=== PATIENT | male | born 1960 | race Caucasian/White ===

== ENCOUNTER 2021-01-19 20:22 | Emergency (ER) | payer SELFPAY ==
[~2021-01-19 20:22] MED LIST: FNT25TD TD; GABA600T2 PO; HYDR-2890 PO
[2021-01-19 20:59] LABS: CLARITY,URINE SL CLOUDY; COLOR,URINE ORANGE; GLUCOSE, URINE (UA) NEGATIVE (NEGATIVE); KETONES,URINE NEGATIVE (NEGATIVE); LEUKOCYTE ESTERASE ,URINE NEGATIVE (NEGATIVE); NITRITE,URINE NEGATIVE (NEGATIVE); PH,URINE 5.5 (5-9); PROTEIN,URINE 2+ (NEGATIVE)
[2021-01-19] MEDS ORDERED: NS IV 1000 ML 1,000 ML IV SCH ×2 (21:15→21:30)
[2021-01-19 21:16] LABS: BACTERIA,URINE LARGE /HPF; BILIRUBIN,URINE 1+ (NEGATIVE)
[2021-01-19 21:19] LABS: BASOPHILS % (AUTO) 0 % (0-10); EOSINOPHILS % (AUTO) 0 % (0-10); HEMATOCRIT 47 % (40-54); HEMOGLOBIN 16.6 g/dL (13.3-17.7); LYMPHOCYTES # (AUTO) 0.7 10^3/uL (1.0-4.0); LYMPHOCYTES % (AUTO) 5 % (12-44); MEAN CORPUSCULAR HEMOGLOBIN 32 pg (25-34); MEAN CORPUSCULAR HGB CONC 36 g/dL (32-36); MEAN CORPUSCULAR VOLUME 90 fL (80-99); MEAN PLATELET VOLUME 9.1 fL (9.0-12.2); MONOCYTES # (AUTO) 1.2 10^3/uL (0.0-1.0); MONOCYTES % (AUTO) 8 % (0-12); NEUTROPHILS # (AUTO) 11.8 10^3/uL (1.8-7.8); NEUTROPHILS % (AUTO) 86 % (42-75); PLATELET COUNT 214 10^3/uL (130-400); WHITE BLOOD COUNT 13.8 10^3/uL (4.3-11.0)
[2021-01-19 21:22] LABS: ALBUMIN 4.2 GM/DL (3.2-4.5); POTASSIUM 3.5 MMOL/L (3.6-5.0)
[2021-01-19 21:23] LABS: CALCIUM 9.7 MG/DL (8.5-10.1)
[2021-01-19 21:25] LABS: TOTAL PROTEIN 8.5 GM/DL (6.4-8.2)
[2021-01-19 21:26] LABS: BILIRUBIN,TOTAL 0.8 MG/DL (0.1-1.0)
[2021-01-19 21:28] LABS: CREATININE SERUM 1.36 MG/DL (0.60-1.30)
[2021-01-19] MEDS ORDERED: ONDANSETRON 4 MG/2 ML (SDV) Z0FRAN IVP ONE (21:30)
[2021-01-19] MEDS ORDERED: PANTOPRAZOLE 40 MG (PROTONIX) VIAL IV ONE (21:30)
[2021-01-19] MEDS ORDERED: KETOROLAC 30 MG/ML VIAL IVP ONE (21:30)
--- NOTE | 2021-01-19 21:35 | ED GI ---
General Chief Complaint: COVID19 Suspect/Confirmed Stated Complaint: DIARREAH, CHILLS Source of Information: Patient Exam Limitations: No Limitations History of Present Illness Date Seen by Provider: Jan 19, 2021 Time Seen by Provider: 20:53 Initial Comments Patient to the ER by EMS from his van by the [place]ora with chief complaint that he is been having diarrhea for going on 7 days now. He is not had any fevers or chills. Little bit of nausea but no vomiting. Seems to be all lower GI symptoms. Took some Pepto-Bismol today which did not help. He feels like he is getting dehydrated. He says he is routinely healthy and does not take any medicines. He does have a history of appendectomy and right inguinal hernia repair years and years ago. He says he has not used opiates related to neck surgery for many years. No sick contacts. No vaccination for Covid or influenza. He has not used Kaopectate or Imodium. He is having some modest amount of allover abdominal pain. Claims about 5-6 loose stools per day. No drinking from unsafe water sources. He says he buys bottled water. Prior to all this starting he says he cooked about a dozen eggs and over 3 or 4 days he continued to make egg salad and other meals out of these eggs but lacks refrigeration. Allergies and Home Medications Allergies Coded Allergies: No Known Drug Allergies (Unverified , 10/12/10) Patient Home Medication List Home Medication List Reviewed: Yes Fentanyl (Duragesic 25MCG Patch) 1 Ea Patch, 1 EACH TD Q72H, (Reported) Entered as Reported by: JOSH MURPHY on 10/12/10 1031 Gabapentin (Neurontin) 600 Mg Tablet, 1 EACH PO TID, (Reported) Entered as Reported by: JOSH MURPHY on 10/12/10 1031 Hydrocodone Bit/Acetaminophen (Hydrocodon-Acetaminophn 10-325) 1 Each Tablet, 1 EACH PO UD, (Reported) Entered as Reported by: JOSH MURPHY on 10/12/10 1031 Review of Systems Review of Systems Constitutional: No chills, No diaphoresis EENTM: No Blurred Vision, No Double Vision Respiratory: Denies Cough, Denies Shortness of Air Cardiovascular: Denies Chest Pain, Denies Lightheadedness Gastrointestinal: Abdominal Pain; Denies Constipated; Diarrhea, Nausea, Poor Fluid Intake; Denies Vomiting Genitourinary: Denies Burning, Denies Discharge Musculoskeletal: No back pain, No joint pain Skin: No pruritus, No rash Psychiatric/Neurological: Denies Headache, Denies Numbness Endocrine: Denies Flushing, Denies Increased Thrist Hematologic/Lymphatic: Denies Anemia, Denies Blood Clots All Other Systems Reviewed Negative Unless Noted: Yes Past Snrtcmn-Nyrbpx-Hmmuyz Hx Patient Social History Tobacco Use?: No Use of E-Cig and/or Vaping dev: No Substance use?: No Physical Exam Vital Signs Vital Signs - First Documented 01/19/21 20:53 Temp 36.9 Pulse 94 Resp 20 B/P (MAP) 130/92 (105) Pulse Ox 96 O2 Delivery Room Air Capillary Refill : Height/Weight/BMI Height: '" Weight: lbs. oz. kg; BMI Method: General Appearance: WD/WN, mild distress HEENT: PERRL/EOMI; No pharynx normal (Dry oral mucosa with very few teeth left) Neck: full range of motion, supple, normal inspection Respiratory: lungs clear, normal breath sounds, no respiratory distress, no accessory muscle use Cardiovascular: normal peripheral pulses, regular rate, rhythm, no edema Peripheral Pulses: 2+ Radial Pulses (R), 2+ Radial Pulses (L) Gastrointestinal: non tender, soft, other (Hyperactive bowel sounds) Extremities: normal inspection, normal capillary refill Neurologic/Psychiatric: alert, normal mood/affect, oriented x 3 Progress/Results/Core Measures Results/Orders Lab Results Laboratory Tests Test 01/19/21 20:55 01/19/21 20:57 01/19/21 21:07 Range/Units Urine Color ORANGE Urine Clarity SL CLOUDY Urine pH 5.5 5-9 Urine Specific [place] >=1.030 1.016-1.022 Urine Protein 2+ H NEGATIVE Urine Glucose (UA) NEGATIVE NEGATIVE Urine Ketones NEGATIVE NEGATIVE Urine Nitrite NEGATIVE NEGATIVE Urine Bilirubin 1+ H NEGATIVE Urine Urobilinogen 0.2 < = 1.0 MG/DL Urine Leukocyte Esterase NEGATIVE NEGATIVE Urine RBC (Auto) TRACE-I H NEGATIVE Urine RBC NONE /HPF Urine WBC 2-5 /HPF Urine Squamous Epithelial Cells NONE /HPF Urine Crystals NONE /LPF Urine Bacteria LARGE H /HPF Urine Casts PRESENT /LPF Urine Hyaline Casts 2-5 H /LPF Urine Granular Casts 10-25 H /LPF Urine Mucus MODERATE H /LPF Urine Culture Indicated YES Influenza Type A (RT-PCR) Not Detected Not Detecte Influenza Type B (RT-PCR) Not Detected Not Detecte SARS-CoV-2 RNA (RT-PCR) Not Detected Not Detecte White Blood Count 13.8 H 4.3-11.0 10^3/uL Red Blood Count 5.22 4.30-5.52 10^6/uL Hemoglobin 16.6 13.3-17.7 g/dL Hematocrit 47 40-54 % Mean Corpuscular Volume 90 80-99 fL Mean Corpuscular Hemoglobin 32 25-34 pg Mean Corpuscular Hemoglobin Concent 36 32-36 g/dL Red Cell Distribution Width 12.4 10.0-14.5 % Platelet Count 214 130-400 10^3/uL Mean Platelet Volume 9.1 9.0-12.2 fL Immature Granulocyte % (Auto) 1 % Neutrophils (%) (Auto) 86 H 42-75 % Lymphocytes (%) (Auto) 5 L 12-44 % Monocytes (%) (Auto) 8 0-12 % Eosinophils (%) (Auto) 0 0-10 % Basophils (%) (Auto) 0 0-10 % Neutrophils # (Auto) 11.8 H 1.8-7.8 10^3/uL Lymphocytes # (Auto) 0.7 L 1.0-4.0 10^3/uL Monocytes # (Auto) 1.2 H 0.0-1.0 10^3/uL Eosinophils # (Auto) 0.0 0.0-0.3 10^3/uL Basophils # (Auto) 0.0 0.0-0.1 10^3/uL Immature Granulocyte # (Auto) 0.1 0.0-0.1 10^3/uL Neutrophils % (Manual) 78 % Lymphocytes % (Manual) 5 % Monocytes % (Manual) 9 % Band Neutrophils 8 % Blood Morphology Comment NORMAL Sodium Level 136 135-145 MMOL/L Potassium Level 3.5 L 3.6-5.0 MMOL/L Chloride Level 102 98-107 MMOL/L Carbon Dioxide Level 19 L 21-32 MMOL/L Anion Gap 15 H 5-14 MMOL/L Blood Urea Nitrogen 22 H 7-18 MG/DL Creatinine 1.36 H 0.60-1.30 MG/DL Estimat Glomerular Filtration Rate 54 BUN/Creatinine Ratio 16 Glucose Level 160 H 70-105 MG/DL Calcium Level 9.7 8.5-10.1 MG/DL Corrected Calcium 9.5 8.5-10.1 MG/DL Total Bilirubin 0.8 0.1-1.0 MG/DL Aspartate Amino Transf (AST/SGOT) 17 5-34 U/L Alanine Aminotransferase (ALT/SGPT) 16 0-55 U/L Alkaline Phosphatase 53 40-136 U/L C-Reactive Protein High Sensitivity 21.02 H 0.00-0.50 MG/DL Total Protein 8.5 H 6.4-8.2 GM/DL Albumin 4.2 3.2-4.5 GM/DL My Orders Orders - SYED KAUR 19 Inhouse Test (01/19/21 20:53) Influenza A And B By Pcr (01/19/21 20:53) Ua Culture If Indicated (01/19/21 20:53) Cbc With Automated Diff (01/19/21 21:07) Comprehensive Metabolic Panel (01/19/21 21:07) Ed Iv/Invasive Line Start (01/19/21 21:07) Ns Iv 1000 Ml (Sodium Chloride 0.9%) (01/19/21 21:15) Hs C Reactive Protein (01/19/21 21:07) Urine Culture (01/19/21 20:55) Manual Differential (01/19/21 21:07) Ketorolac Injection (Toradol Injection) (01/19/21 21:30) Pantoprazole Injection (Protonix Injecti (01/19/21 21:30) Ondansetron Injection (Zofran Injectio (01/19/21 21:30) Ed Iv/Invasive Line Start (01/19/21 21:29) Ns Iv 1000 Ml (Sodium Chloride 0.9%) (01/19/21 21:30) Stool Culture (01/19/21 21:29) Fecal Wbc (01/19/21 21:29) Loperamide Tablet (Imodium Tablet) (01/19/21 22:00) Medications Given in ED Current Medications Medications Dose Ordered Sig/Sheri Route Start Time Stop Time Status Last Admin Dose Admin Ketorolac Tromethamine 30 mg ONCE ONCE IVP 01/19/21 21:30 01/19/21 21:31 DC 11/26/21 21:40 30 MG Loperamide HCl 4 mg ONCE ONCE PO 01/19/21 22:00 01/19/21 22:01 DC 01/19/21 22:03 4 MG Ondansetron HCl 8 mg ONCE ONCE IVP 01/19/21 21:30 01/19/21 21:31 DC 01/19/21 21:40 8 MG Pantoprazole 40 mg ONCE ONCE IV 01/19/21 21:30 01/19/21 21:31 DC 01/19/21 21:40 40 MG Vital Signs/I&O 01/19/21 20:53 Temp 36.9 Pulse 94 Resp 20 B/P (MAP) 130/92 (105) Pulse Ox 96 O2 Delivery Room Air Progress Progress Note #1: Time: 21:34 Progress Note Foodborne toxin versus viral gastroenteritis versus less likely bacterial. He does not have any fever or bloody stools. We will get a stool sample and send it for culture. 2 L of fluid would be about 30 mils per kilogram. Other than heart rate of 90 he has aseptic vital signs. Tickly he barely meets sepsis criteria however we will not be giving him antibiotics as this is often contraindicated in nonbloody diarrhea. We will reexamine him after our interventions and some Imodium. Progress Note #2: Time: 23:24 Progress Note After 2 L of fluids, Toradol. The patient is tolerating oral fluids. His mouth is moist. He states he feels a little better. Stool culture sent down to the lab. Talked about an observation stay versus going home and the patient says he is okay with going home. We will provide him with a bottle of Gatorade and take-home pack of Zofran and a prescription sent to the pharmacy. Instructions to get Imodium. He is okay with this plan. Return precautions were discussed. Departure Impression Primary Impression: Gastroenteritis/colitis, infectious Disposition: 01 HOME, SELF-CARE Condition: Stable Departure-Patient Inst. Decision time for Depature: 23:26 Referrals: [facility] (PCP/Family) Primary Care Physician Patient Instructions: Diarrhea and Travelers' Diarrhea, Adult (DC) Add. Discharge Instructions: Drink plenty of fluids. Sports drinks are encouraged. Zofran 1 tablet every 6 hours under the tongue as necessary for nausea or vom iting. 2 tablets of Imodium followed by 1 tablet every 4 hours afterwards that she still have loose, watery diarrhea. Stick to a bland, high-fiber diet such as bananas, rice, applesauce and toast. Return to the ER for worsening symptoms. All discharge instructions reviewed with patient and/or family. Voiced understanding. Scripts Ondansetron (Ondansetron Odt) 4 Mg Tab.rapdis 4 MG PO Q6H PRN for NAUSEA/VOMITING, #10 TAB 0 Refills Prov: SYED KAUR 01/19/21 SYED KAUR Jan 19, 2021 21:35
[2021-01-19 21:42] LABS: BAND NEUTROPHILS 8 %; LYMPHOCYTES % (MANUAL) 5 %; MONOCYTES % (MANUAL) 9 %; NEUTROPHILS % (MANUAL) 78 %
[2021-01-19 21:43] LABS: RBC MORPH NORMAL
[2021-01-19] MEDS ORDERED: LOPERAMIDE 2 MG (IMODIUM) TABLET PO ONE (22:00)
[2021-01-19] MEDS ORDERED: RX-ONDANSETRON 4 MG ODT (ZOFRAN) PPK #4 PO STA (23:25)
[2021-01-19] MEDS ORDERED: ONDA4TAB11 PO (23:27)
[2021-01-19 23:33] VITALS: BP 111/64
== END 2021-01-19 23:42 | disposition home or self-care (01) ==
LOC: EDUNIT# 20:22 → ER 20:24
DX: K52.9 Noninfective gastroenteritis and colitis, unspecified (principal); Z20.822 Contact with and (suspected) exposure to COVID-19
CPT/HCPCS: 36415; 80053; 81000; 85007; 85027; 86141; 87015; 87045; 87046; 87088; 87636; 87899; 89055

== ENCOUNTER 2021-01-23 09:33 | Inpatient (IN) | payer SELFPAY ==
[2021-01-23] VITALS (21 sets, daily range): BP systolic 96–137; BP diastolic 58–91
[~2021-01-23] VITALS: Ht 170.1 cm; Wt 75.9 kg
[~2021-01-23 09:33] MED LIST changes: +ONDA4TAB11 PO
--- NOTE | 2021-01-23 10:09 | ED Abdominal Pain ---
General Chief Complaint: Abdominal/GI Problems Stated Complaint: DIARRHEA Nursing Triage Note: severe abdominal pain and diarrhea started last night. has been having problems for over a week. Source of Information: Patient Exam Limitations: No Limitations History of Present Illness Date Seen by Provider: Jan 23, 2021 Time Seen by Provider: 09:55 Initial Comments Patient is a 60-year-old male who presents to the emergency department today with a chief complaint of severe abdominal pain and diarrhea. Patient states that he has had abdominal pain and diarrhea for about 10 days. Patient states that initially he thought he had eaten some bad food or bad eggs. He did come to the emergency department last Friday, had labs performed, stool studies done. He states he is taken a box of Imodium, 12 tablets since his visit on Friday. He states yesterday in the morning the diarrhea seemed to be controlled however at about 2:30 in the morning last night he states that he had sudden worsening of the abdominal pain and a return of the diarrhea. He states since that time he has had 5 or 6 watery stools. He states he has noticed a little bit of blood in the stool but thinks that potentially it is from wiping so much. He states he has had decreased amounts of urination and his urine is very dark. He denies fevers or chills. No real nausea or vomiting. He states he has been trying to drink Powerade, water, Gatorade but it makes him have diarrhea. He has had previous appendectomy and hernia repair years ago. Stool cultures are reviewed and were negative for bacterial etiology. He was not tested for C. difficile. Urine culture was done it was normal. No recent antibiotic usage. All other review of systems reviewed and negative except as stated. Timing/Duration: 1 Week Severity/Quality: Severe, Cramping, Sharp, Throbbing Location: Generalized Abdomen Radiation: No Radiation Activities at Onset: None Associated Symptoms: Shortness of Air (due to pain), Weakness Allergies and Home Medications Allergies Coded Allergies: No Known Drug Allergies (Unverified , 10/12/10) Patient Home Medication List Home Medication List Reviewed: Yes Fentanyl (Duragesic 25MCG Patch) 1 Ea Patch, 1 EACH TD Q72H, (Reported) Entered as Reported by: JOSH MURPHY on 10/12/10 1031 Gabapentin (Neurontin) 600 Mg Tablet, 1 EACH PO TID, (Reported) Entered as Reported by: JOSH MURPHY on 10/12/10 1031 Hydrocodone Bit/Acetaminophen (Hydrocodon-Acetaminophn 10-325) 1 Each Tablet, 1 EACH PO UD, (Reported) Entered as Reported by: JOSH MURPHY on 10/12/10 1031 Ondansetron (Ondansetron Odt) 4 Mg Tab.rapdis, 4 MG PO Q6H PRN for NAUSEA/VOMITING Prescribed by: SYED KAUR on 01/19/21 4758 Review of Systems Review of Systems Constitutional: see HPI EENTM: No Symptoms Reported Respiratory: Shortness of Air Cardiovascular: No Symptoms Reported Gastrointestinal: Abdomen Distended, Abdominal Pain, Blood Streaked Stools, Diarrhea Genitourinary: Other (Decreased amounts of urination and dark urine) Musculoskeletal: no symptoms reported Skin: no symptoms reported Psychiatric/Neurological: Anxiety All Other Systems Reviewed Negative Unless Noted: Yes Past Lpfgcbl-Mokrfc-Btyhjr Hx Patient Social History Tobacco Use?: No Use of E-Cig and/or Vaping dev: No Substance type: Marijuana Alcohol Use?: Yes Alcohol Frequency: Once in a while Pt feels they are or have been: No Immunizations Up To Date Influenza Vaccine Up-to-Date: No; Not Current First/Initial COVID19 Vaccinat: declined Physical Exam Vital Signs Vital Signs - First Documented 01/23/21 09:40 Temp 36.5 Pulse 87 Resp 20 B/P (MAP) 137/83 (101) Pulse Ox 98 Capillary Refill : Less Than 3 Seconds Height/Weight/BMI Height: '" Weight: lbs. oz. kg; 25.00 BMI Method: General Appearance: WD/WN, moderate distress HEENT: PERRL/EOMI Respiratory: lungs clear, normal breath sounds, no respiratory distress, no accessory muscle use Cardiovascular: regular rate, rhythm Gastrointestinal: soft, abnormal bowel sounds, distended, guarding, tenderness (Diffuse abdominal tenderness, distention noted. The abdomen is not tense. Hypoactive bowel sounds) Extremities: normal range of motion, normal inspection Neurologic/Psychiatric: alert, normal mood/affect, oriented x 3 Skin: normal color, warm/dry Progress/Results/Core Measures Results/Orders Lab Results Laboratory Tests Test 01/23/21 09:45 01/23/21 10:36 Range/Units White Blood Count 15.3 H 4.3-11.0 10^3/uL Red Blood Count 4.88 4.30-5.52 10^6/uL Hemoglobin 15.2 13.3-17.7 g/dL Hematocrit 43 40-54 % Mean Corpuscular Volume 88 80-99 fL Mean Corpuscular Hemoglobin 31 25-34 pg Mean Corpuscular Hemoglobin Concent 36 32-36 g/dL Red Cell Distribution Width 12.5 10.0-14.5 % Platelet Count 262 130-400 10^3/uL Mean Platelet Volume 9.5 9.0-12.2 fL Immature Granulocyte % (Auto) 1 % Neutrophils (%) (Auto) 88 H 42-75 % Lymphocytes (%) (Auto) 5 L 12-44 % Monocytes (%) (Auto) 6 0-12 % Eosinophils (%) (Auto) 0 0-10 % Basophils (%) (Auto) 0 0-10 % Neutrophils # (Auto) 13.5 H 1.8-7.8 10^3/uL Lymphocytes # (Auto) 0.7 L 1.0-4.0 10^3/uL Monocytes # (Auto) 0.9 0.0-1.0 10^3/uL Eosinophils # (Auto) 0.0 0.0-0.3 10^3/uL Basophils # (Auto) 0.0 0.0-0.1 10^3/uL Immature Granulocyte # (Auto) 0.1 0.0-0.1 10^3/uL Sodium Level 134 L 135-145 MMOL/L Potassium Level 4.4 3.6-5.0 MMOL/L Chloride Level 98 98-107 MMOL/L Carbon Dioxide Level 24 21-32 MMOL/L Anion Gap 12 5-14 MMOL/L Blood Urea Nitrogen 15 7-18 MG/DL Creatinine 0.96 0.60-1.30 MG/DL Estimat Glomerular Filtration Rate 80 BUN/Creatinine Ratio 16 Glucose Level 110 H 70-105 MG/DL Calcium Level 9.2 8.5-10.1 MG/DL Corrected Calcium 9.5 8.5-10.1 MG/DL Total Bilirubin 0.9 0.1-1.0 MG/DL Aspartate Amino Transf (AST/SGOT) 23 5-34 U/L Alanine Aminotransferase (ALT/SGPT) 24 0-55 U/L Alkaline Phosphatase 49 40-136 U/L Total Protein 7.5 6.4-8.2 GM/DL Albumin 3.6 3.2-4.5 GM/DL Lipase 16 8-78 U/L Urine Color YELLOW Urine Clarity CLEAR Urine pH 6.0 5-9 Urine Specific [place] 1.020 1.016-1.022 Urine Protein 1+ H NEGATIVE Urine Glucose (UA) NEGATIVE NEGATIVE Urine Ketones 3+ H NEGATIVE Urine Nitrite NEGATIVE NEGATIVE Urine Bilirubin NEGATIVE NEGATIVE Urine Urobilinogen 4.0 < = 1.0 MG/DL Urine Leukocyte Esterase TRACE H NEGATIVE Urine RBC (Auto) NEGATIVE NEGATIVE Urine RBC RARE /HPF Urine WBC 0-2 /HPF Urine Crystals PRESENT H /LPF Urine Amorphous Sediment FEW [place] URATES H /LPF Urine Bacteria NEGATIVE /HPF Urine Casts NONE /LPF Urine Mucus NEGATIVE /LPF Urine Culture Indicated NO Micro Results Microbiology 01/23/21 C. difficile GDH Antigen & Toxins - Final, Complete My Orders Orders - MONE MITCHELL MD Ed Iv/Invasive Line Start (01/23/21 10:03) Cbc With Automated Diff (01/23/21 10:03) Comprehensive Metabolic Panel (01/23/21 10:03) Lipase (01/23/21 10:03) Ua Culture If Indicated (01/23/21 10:03) Ct Abdomen/Pelvis Wo (01/23/21 10:03) Ns Iv 1000 Ml (Sodium Chloride 0.9%) (01/23/21 10:15) Fentanyl Inj (Sublimaze Injection) (01/23/21 10:15) C Difficile Ag + Toxin A/B. (01/23/21 10:03) Isolation Central Supply Req (01/23/21 10:03) Morphine Injection (Morphine Injection (01/23/21 11:21) Ns Iv 1000 Ml (Sodium Chloride 0.9%) (01/23/21 11:30) Ciprofloxacin Iv 400mg/200ml (Cipro Iv S (01/23/21 11:30) Metronidazole 500mg/100ml Ivpb (Flagyl 5 (01/23/21 11:30) Nothing By Mouth (01/23/21 Lunch) Medications Given in ED Current Medications Medications Dose Ordered Sig/Sheri Route Start Time Stop Time Status Last Admin Dose Admin Fentanyl Citrate 50 mcg ONCE ONCE IVP 01/23/21 10:15 11/30/21 10:16 DC 01/23/21 10:14 50 MCG Vital Signs/I&O 01/23/21 09:40 Temp 36.5 Pulse 87 Resp 20 B/P (MAP) 137/83 (101) Pulse Ox 98 Blood Pressure Mean: 101 Progress Progress Note : Time: 11:08 Progress Note NOtified by radiology the patient's CT shows what looks like a contained perforation low in the pelvis, read to follow [address] Moreno, surgery on-call. Recommends n.p.o. status, fluids, Cipro and Flagyl. More pain medications have been given to the patient. I have discussed all of the findings with him. He is agreeable with admission. All questions are sought and answered. Departure Communication (Admissions) Time/Spoke to Admitting Phy: 11:[address] Moreno; reviewing CT with me; Impression Primary Impression: C. difficile colitis Additional Impression: Bowel perforation Disposition: ADMITTED INPATIENT Condition: Stable Admissions Decision to Admit Reason: Admit from ER (General) Decision to Admit/Date: Jan 23, 2021 Time/Decision to Admit Time: 11:30 Departure-Patient Inst. Referrals: [facility] (PCP/Family) Primary Care Physician MONE MITCHELL MD Jan 23, 2021 10:09
[2021-01-23 10:12] LABS: BASOPHILS % (AUTO) 0 % (0-10); EOSINOPHILS % (AUTO) 0 % (0-10); HEMATOCRIT 43 % (40-54); HEMOGLOBIN 15.2 g/dL (13.3-17.7); LYMPHOCYTES # (AUTO) 0.7 10^3/uL (1.0-4.0); LYMPHOCYTES % (AUTO) 5 % (12-44); MEAN CORPUSCULAR HEMOGLOBIN 31 pg (25-34); MEAN CORPUSCULAR HGB CONC 36 g/dL (32-36); MEAN CORPUSCULAR VOLUME 88 fL (80-99); MEAN PLATELET VOLUME 9.5 fL (9.0-12.2); MONOCYTES # (AUTO) 0.9 10^3/uL (0.0-1.0); MONOCYTES % (AUTO) 6 % (0-12); NEUTROPHILS # (AUTO) 13.5 10^3/uL (1.8-7.8); NEUTROPHILS % (AUTO) 88 % (42-75); PLATELET COUNT 262 10^3/uL (130-400); WHITE BLOOD COUNT 15.3 10^3/uL (4.3-11.0)
[2021-01-23] MEDS ORDERED: fentaNYL INJ 100 MCG/2 ML AMP IVP ONE ×2 (10:15→18:45)
[2021-01-23] MEDS ORDERED: NS IV 1000 ML 1,000 ML IV SCH ×2 (10:15→11:30)
[2021-01-23 10:23] LABS: ALBUMIN 3.6 GM/DL (3.2-4.5); BILIRUBIN,TOTAL 0.9 MG/DL (0.1-1.0); CALCIUM 9.2 MG/DL (8.5-10.1); CREATININE SERUM 0.96 MG/DL (0.60-1.30); POTASSIUM 4.4 MMOL/L (3.6-5.0); TOTAL PROTEIN 7.5 GM/DL (6.4-8.2)
[2021-01-23 10:42] LABS: CLARITY,URINE CLEAR; COLOR,URINE YELLOW; GLUCOSE, URINE (UA) NEGATIVE (NEGATIVE); KETONES,URINE 3+ (NEGATIVE); LEUKOCYTE ESTERASE ,URINE TRACE (NEGATIVE); NITRITE,URINE NEGATIVE (NEGATIVE); PROTEIN,URINE 1+ (NEGATIVE)
[2021-01-23 10:51] LABS: AMORPHOUS SEDIMENT,UR FEW AMOR URATES /LPF; BACTERIA,URINE NEGATIVE /HPF; BILIRUBIN,URINE NEGATIVE (NEGATIVE); RBC,URINE RARE /HPF; WBC,URINE 0-2 /HPF
--- NOTE | 2021-01-23 11:14 | Diagnostic Imaging Report ---
CT ABDOMEN/PELVIS WO TECHNIQUE: Unenhanced CT imaging of the abdomen and pelvis was performed. 2-D reformats are created and submitted for interpretation. Automatic exposure controls were utilized to optimize patient dose. INDICATION: Severe abdominal pain. COMPARISON: None available. FINDINGS: Evaluation of the abdominal viscera is mildly limited without contrast. Lower chest: The lung bases are clear. No pericardial or pleural effusion. Peritoneum: No free intraperitoneal air. Liver and biliary system: Unenhanced liver is normal. The gallbladder is normal. No biliary duct dilation. Spleen and Pancreas: Spleen is normal. Unenhanced pancreas is grossly normal. Adrenals: Normal. tract: Bilateral punctate nonobstructing renal stones. No ureteral stones or obstructive uropathy. Urinary bladder is decompressed. Prostate is not enlarged. GI tract: Stomach is decompressed. The proximal small bowel loops are fluid-filled and mildly dilated measuring approximately 3 cm. In the central upper pelvis, there is a long segment of wall thickening in the small bowel with surrounding inflammatory induration. Immediately adjacent to this inflamed loop of small bowel there is a air and fluid-filled collection measuring 5.3 x 2.2 cm is likely a site of contained perforation. Sigmoid colon has diverticulosis and some adjacent stranding is most likely reactive in nature due to the adjacent small bowel inflammation. Vasculature and Lymph nodes: Normal caliber aorta. No abdominal or pelvic lymphadenopathy. Musculoskeletal: No concerning osseous lesion. IMPRESSION: 1. Acute enteritis involving the distal loop of ileum has features of a contained perforation as there is an adjacent air and fluid-filled collection within the adjacent mesentery. The position of the collection between bowel loops would make it very unlikely that this would be amenable to CT-guided drainage. 2. Case was discussed with Dr. Lundberg by Dr. Navarro at 11:10 AM on 01/23/2021. Dictated by: Dictated on workstation # [id number]
[2021-01-23] MEDS ORDERED: morphine INJ 10 MG/ML 1ML (SYR OR VIAL) IVP STA (11:21)
[2021-01-23] MEDS ORDERED: metroNIDAZOLE 500MG/100ML IVPB 100 ML IV ONE (11:30)
[2021-01-23] MEDS ORDERED: CIPROFLOXACIN IV 400MG/200ML 200 ML IV ONE (11:30)
[2021-01-23] MEDS ORDERED: metroNIDAZOLE 500 MG/100 ML IVPB (PRE-MIX) IV SCH (14:00)
[2021-01-23] MEDS ORDERED: ONDANSETRON 4 MG/2 ML (SDV) Z0FRAN IVP PRN ×2 (14:00→18:45)
[2021-01-23] MEDS ORDERED: RT-ALBUTEROL SULF 2.5 MG/3 ML PRE-MIX VIAL INH PRN (14:15)
[2021-01-23] MEDS ORDERED: ACETAMINOPHEN 650 MG SUPP (TYLENOL) PR PRN (14:45)
[2021-01-23] MEDS: NS IV 1000 ML 1,000 ML IV SCH ×2 (14:55→21:13)
--- NOTE | 2021-01-23 15:25 | History & Physical-Surgical ---
KOLBY FRANCO MED STUDENT 01/23/21 1525: History of Present Illness History of Present Illness Reason for visit/HPI This is Shantanu a 60 yo male with the chief complaint of C diff colitis and bowel perforation. He presented to the ED today with abdominal pain and diarrhea for the past 10 days. He came to the ED last Friday and was prescribed Zofran and Imodium. This controlled the diarrhea and helped with the pain until this morning. Pt states that he woke up at 2:45am with extreme pain and had 5-6 watery stools. He stated that the pain was so intense at times that he thought he was going to pass out 12/03. There were multiple times that he was unable to make it to the bathroom and struggled with fecal incontinence. He states that he has decreased frequency of urination but that he will all of a sudden get the urge to go and has to squeeze his penis in order to not pee everywhere until making it into the restroom. Pt states stools are dark black in color and smell terrible, he also admits to minimal bright red blood on the toilet paper after multiple times wiping. He has had nothing to eat today and the only thing he has had to drink is a few sips of Pedialyte. Pt is scheduled for surgery with Dr. Beltre at 16:30. Date of Admission Jan 23, 2021 at 11:24 I consulted on this patient on 01/23/21 15:16 Attending Physician Lance Beltre DO Admitting Physician [facility] Consult Allergies and Home Medications Allergies Coded Allergies: No Known Drug Allergies (Unverified , 10/12/10) Patient Home Medication List Loperamide HCl (Imodium A-D) 2 Mg Tablet, 2-4 MG PO UD PRN for DIARRHEA, (Reported) Entered as Reported by: JOSH HERZOG on 01/23/21 551 Last Action: Reviewed Ondansetron (Ondansetron Odt) 4 Mg Tab.rapdis, 4 MG PO Q6H PRN for NAUSEA/VOMITING-1ST LINE, (Reported) Entered as Reported by: JOSH HERZOG on 01/23/21 223 Last Action: Reviewed Discontinued Medications Fentanyl (Duragesic 25MCG Patch) 1 Ea Patch, 1 EACH TD Q72H, (Reported) Discontinued Reason: Duplicate Order Entered as Reported by: JOSH MURPHY on 10/12/10 1031 Last Action: Discontinued Gabapentin (Neurontin) 600 Mg Tablet, 1 EACH PO TID, (Reported) Discontinued Reason: Duplicate Order Entered as Reported by: JOSH MURPHY on 10/12/10 103 Last Action: Discontinued Hydrocodone Bit/Acetaminophen (Hydrocodon-Acetaminophn 10-325) 1 Each Tablet, 1 EACH PO UD, (Reported) Discontinued Reason: Duplicate Order Entered as Reported by: JOSH MURPHY on 10/12/10 103 Last Action: Discontinued Ondansetron (Ondansetron Odt) 4 Mg Tab.rapdis, 4 MG PO Q6H PRN for NAUSEA/VOMITING Discontinued Reason: No Longer Taking Prescribed by: SYED KAUR on 01/19/212326 Last Action: Discontinued Past Qzjlxfk-Vtsszz-Sksqqd Hx Patient Social History Tobacco Use?: Yes Tobacco type used: Cigarettes Smoking Status: Current Everyday Smoker (half a pack every day for 47 years) Use of E-Cig and/or Vaping dev: No Substance use?: Yes Substance type: Marijuana Substance frequency: Daily Alcohol Use?: Yes Alcohol type: Hard Liquor Alcohol Frequency: Rarely Pt feels they are or have been: No Immunizations Up To Date First/Initial COVID19 Vaccinat: declined Current Status Advance Directives: No Communicates: Verbally Primary Language: Gabonese Preferred Spoken Language: Gabonese Is interpretation needed?: No Implanted or Applied Medical D: Orthopedic hardware Past Medical History Surgeries: Abdominal (hernia repair), Appendectomy, Orthopedic (c6 vertebrea removed with hardware, 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) Currently Using CPAP: No Currently Using BIPAP: No 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) Family Medical History Diabetes (mom and sister) Review of Systems Constitutional: No chills, No diaphoresis; fever, weakness; No weight gain; weight loss EENTM: eye pain; No ear pain, No blurred vision, No hoarseness, No nose pain, No throat pain Respiratory: No cough; dyspnea on exertion; No hemoptysis, No short of breath Cardiovascular: No chest pain, No Hx of Intervention, No palpitations Gastrointestinal: LLQ, abdominal pain (LLQ); No constipation; diarrhea; No hematemesis; loss of appetite, melena, nausea; No vomiting; other (incontinence) Genitourinary: decreased output; No discharge, No dysuria, No frequency, No hematuria, No hesitancy; incontinence, pain Musculoskeletal: back pain (states he is experiencing kidney pain); No joint pain, No joint swelling, No muscle pain, No muscle stiffness, No muscle weakn ess, No neck pain Skin: No change in color, No dryness, No lesions, No rash Psychiatric/Neurological: Denies Anxiety; Depressed, Emotional Problems, Headache; Denies Weakness; Other (recent suicidal thoughts) Physical Exam Vital Signs Vital Signs - First Documented 01/23/21 01/23/21 01/23/21 09:40 12:46 13:36 Temp 36.5 Pulse 87 Resp 20 B/P (MAP) 137/83 (101) Pulse Ox 98 O2 Delivery Room Air FiO2 21 Capillary Refill : Less Than 3 Seconds Height, Weight, BMI Height: '" Weight: lbs. oz. kg; 26.23 BMI Method: General Appearance: Chronically ill, Moderate Distress HEENT: PERRL/EOMI, Pharynx Normal Neck: Normal Inspection, Non Tender, Supple Respiratory: Chest Non Tender, Lungs Clear, Normal Breath Sounds, No Accessory Muscle Use, No Respiratory Distress Cardiovascular: Regular Rate, Rhythm, No Edema, No Gallop, No Murmur, Normal Peripheral Pulses Gastrointestinal: Distended, Guarding, Tenderness (diffuse tenderness, moderate pain to palpation in LLQ) Back: Other (L and R flank pain) Extremity: Normal Capillary Refill, Normal Inspection, Non Tender, No Calf Tenderness, No Pedal Edema Neurologic/Psychiatric: Alert, Oriented x3, No Motor/Sensory Deficits, Depr essed Affect (states the pain is unbearable ) Skin: Normal Color, Warm/Dry Lymphatic: No Adenopathy (cervial and suprclavicular) Data Review Labs Laboratory Tests 01/23/21 09:45: White Blood Count 15.3H, Red Blood Count 4.88, Hemoglobin 15.2, Hematocrit 43, Mean Corpuscular Volume 88, Mean Corpuscular Hemoglobin 31, Mean Corpuscular Hemoglobin Concent 36, Red Cell Distribution Width 12.5, Platelet Count 262, Mean Platelet Volume 9.5, Immature Granulocyte % (Auto) 1, Neutrophils (%) (Auto) 88H, Lymphocytes (%) (Auto) 5L, Monocytes (%) (Auto) 6, Eosinophils (%) (Auto) 0, Basophils (%) (Auto) 0, Neutrophils # (Auto) 13.5H, Lymphocytes # (Auto) 0.7L, Monocytes # (Auto) 0.9, Eosinophils # (Auto) 0.0, Basophils # (Auto ) 0.0, Immature Granulocyte # (Auto) 0.1, Sodium Level 134L, Potassium Level 4.4, Chloride Level 98, Carbon Dioxide Level 24, Anion Gap 12, Blood Urea Nitrogen 15, Creatinine 0.96, Estimat Glomerular Filtration Rate 80, BUN/Creatinine Ratio 16, Glucose Level 110H, Calcium Level 9.2, Corrected Calcium 9.5, Total Bilirubin 0.9, Aspartate Amino Transf (AST/SGOT) 23, Alanine Aminotransferase (ALT/SGPT) 24, Alkaline Phosphatase 49, Total Protein 7.5, Albumin 3.6, Lipase 16 01/23/21 10:36: Urine Color YELLOW, Urine Clarity CLEAR, Urine pH 6.0, Urine Specific [place] 1.020, Urine Protein 1+H, Urine Glucose (UA) NEGATIVE, Urine Ketones 3+H, Urine Nitrite NEGATIVE, Urine Bilirubin NEGATIVE, Urine Urobilinogen 4.0, Urine Leukocyte Esterase TRACEH, Urine RBC (Auto) NEGATIVE, Urine RBC RARE, Urine WBC 0-2, Urine Crystals PRESENTH, Urine Amorphous Sediment FEW [place] URATESH, Urine Bacteria NEGATIVE, Urine Casts NONE, Urine Mucus NEGATIVE, Urine Culture Indicated NO Microbiology 01/23/21 C. difficile GDH Antigen & Toxins - Final, Complete Assessment/Plan Assessment/Plan Assessment/Plan Assessment: bowel perforation C diff colitis Leukocytosis- WBC of 15.3 on 01/23 Plan: surgery as planned continue c diff precautions LANCE BELTRE DO 01/23/21 1647: History of Present Illness History of Present Illness Reason for visit/HPI Surgery asked to admit pt regarding bowel perforation. HPI per ED: Patient is a 60-year-old male who presents to the emergency department today with a chief complaint of severe abdominal pain and diarrhea. Patient states that he has had abdominal pain and diarrhea for about 10 days. Patient states that initially he thought he had eaten some bad food or bad eggs. He did come to the emergency department last Friday, had labs performed, stool studies done. He states he is taken a box of Imodium, 12 tablets since his visit on Friday. He states yesterday in the morning the diarrhea seemed to be controlled however at about 2:30 in the morning last night he states that he had sudden worsening of the abdominal pain and a return of the diarrhea. He states since that time he has had 5 or 6 watery stools. He states he has noticed a little bit of blood in the stool but thinks that potentially it is from wiping so much. He states he has had decreased amounts of urination and his urine is very dark. He denies fevers or chills. No real nausea or vomiting. He states he has been trying to drink Powerade, water, Gatorade but it makes him have diarrhea. He has had previous appendectomy and hernia repair years ago. When I saw pt in ER he stated he had pain everywhere and the only thing that he lped was pain meds. Denied hx of previous diverticulitis. Date of Admission 01/23/2021 Time Seen by a Provider: 12:11 Allergies and Home Medications Allergies Coded Allergies: No Known Drug Allergies (Unverified , 10/12/10) Patient Home Medication List Home Medication List Reviewed: Yes Loperamide HCl (Imodium A-D) 2 Mg Tablet, 2-4 MG PO UD PRN for DIARRHEA, (Reported) Entered as Reported by: JOSH HERZOG on 01/23/211538 Last Action: Reviewed Ondansetron (Ondansetron Odt) 4 Mg Tab.rapdis, 4 MG PO Q6H PRN for NAUSEA/VOMITING-1ST LINE, (Reported) Entered as Reported by: JOSH HERZOG on 01/23/211538 Last Action: Reviewed Discontinued Medications Fentanyl (Duragesic 25MCG Patch) 1 Ea Patch, 1 EACH TD Q72H, (Reported) Discontinued Reason: Duplicate Order Entered as Reported by: JOSH MURPHY on 10/12/10 1031 Last Action: Discontinued Gabapentin (Neurontin) 600 Mg Tablet, 1 EACH PO TID, (Reported) Discontinued Reason: Duplicate Order Entered as Reported by: JOSH MURPHY on 10/12/10 1031 Last Action: Discontinued Hydrocodone Bit/Acetaminophen (Hydrocodon-Acetaminophn 10-325) 1 Each Tablet, 1 EACH PO UD, (Reported) Discontinued Reason: Duplicate Order Entered as Reported by: JOSH MURPHY on 10/12/10 1031 Last Action: Discontinued Ondansetron (Ondansetron Odt) 4 Mg Tab.rapdis, 4 MG PO Q6H PRN for PILAR SEA/VOMITING Discontinued Reason: No Longer Taking Prescribed by: SYED KAUR on 01/19/212326 Last Action: Discontinued Past Ystednm-Dmyrie-Epizfv Hx Patient Social History Marrital Status: single Smoking Status: Current Everyday Smoker (half a pack every day for 47 years) Use of E-Cig and/or Vaping dev: No Substance frequency: Daily Alcohol Use?: Yes Alcohol type: Hard Liquor Past Medical History Surgeries: Abdominal (hernia repair), Appendectomy, Orthopedic (c6 vertebrea removed with hardware, 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) Currently Using CPAP: No Currently Using BIPAP: No 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) HIV/AIDS: No Diverticulosis Degenerate Disk Disease, Back Injury, Chronic Back Pain Are Your Blood Sugars Over 250: No Loss of Vision: Denies Hearing Impairment: Denies Review of Systems Constitutional: No chills, No diaphoresis; fever, weakness; No weight gain; weight loss EENTM: eye pain; No ear pain, No blurred vision, No hoarseness, No nose pain, No throat pain Respiratory: No cough; dyspnea on exertion; No hemoptysis, No short of breath Cardiovascular: No chest pain, No Hx of Intervention, No palpitations Gastrointestinal: abdominal pain (LLQ); No constipation; diarrhea; No hematemesis; loss of appetite, melena, nausea; No vomiting; other (incontinence) Genitourinary: decreased output; No discharge, No dysuria, No frequency, No hematuria, No hesitancy; incontinence, pain Musculoskeletal: back pain (states he is experiencing kidney pain); No joint pain, No joint swelling, No muscle pain, No muscle stiffness, No muscle weakness, No neck pain Skin: No change in color, No dryness, No lesions, No rash Psychiatric/Neurological: Denies Anxiety; Depressed, Emotional Problems, Head ache; Denies Weakness; Other (recent suicidal thoughts) Physical Exam General Appearance: Chronically ill, Moderate Distress Eyes: Bilateral Eye PERRL, Bilateral Eye EOMI HEENT: Pharynx Normal; No Pale Conjunctivae (L), No Pale Conjunctivae (R) Neck: Non Tender, Supple Respiratory: Chest Non Tender, Lungs Clear, Normal Breath Sounds, No Accessory Muscle Use, No Respiratory Distress Cardiovascular: Regular Rate, Rhythm, No Murmur Gastrointestinal: Soft, Distended (slight), Guarding (voluntary), Tenderness (diffuse tenderness, moderate pain to palpation in LLQ) Rectal: Deferred Back: Other (L and R flank pain) Extremity: Normal Capillary Refill, Normal Inspection, Non Tender, No Calf Tenderness, No Pedal Edema Neurologic/Psychiatric: Alert, Oriented x3, No Motor/Sensory Deficits, environmental programs manager II- XII Norm as Tested, Depressed Affect (states the pain is unbearable ) Skin: Normal Color, Warm/Dry Lymphatic: No Adenopathy (neck, axilla or groin) Data Review Radiology Date of Exam:01/23/21 CT ABDOMEN/PELVIS WO CT ABDOMEN/PELVIS WO TECHNIQUE: Unenhanced CT imaging of the abdomen and pelvis was performed. 2-D reformats are created and submitted for interpretation. Automatic exposure controls were utilized to optimize patient dose. INDICATION: Severe abdominal pain. COMPARISON: None available. FINDINGS: Evaluation of the abdominal viscera is mildly limited without contrast. Lower chest: The lung bases are clear. No pericardial or pleural effusion. Peritoneum: No free intraperitoneal air. Liver and biliary system: Unenhanced liver is normal. The gallbladder is normal. No biliary duct dilation. Spleen and Pancreas: Spleen is normal. Unenhanced pancreas is grossly normal. Adrenals: Normal. tract: Bilateral punctate nonobstructing renal stones. No ureteral stones or obstructive uropathy. Urinary bladder is decompressed. Prostate is not enlarged. GI tract: Stomach is decompressed. The proximal small bowel loops are fluid-filled and mildly dilated measuring approximately 3 cm. In the central upper pelvis, there is a long segment of wall thickening in the small bowel with surrounding inflammatory induration. Immediately adjacent to this inflamed loop of small bowel there is a air and fluid-filled collection measuring 5.3 x 2.2 cm is likely a site of contained perforation. Sigmoid colon has diverticulosis and some adjacent stranding is most likely reactive in nature due to the adjacent small bowel inflammation. Vasculature and Lymph nodes: Normal caliber aorta. No abdominal or pelvic lymphadenopathy. Musculoskeletal: No concerning osseous lesion. IMPRESSION: 1. Acute enteritis involving the distal loop of ileum has features of a contained perforation as there is an adjacent air and fluid-filled collection within the adjacent mesentery. The position of the collection between bowel loops would make it very unlikely that this would be amenable to CT-guided drainage. 2. Case was discussed with Dr. Lundberg by Dr. Navarro at 11:10 AM on 01/23/2021. Dictated by: Dictated on workstation # [id number] Dict: 01/23/21 1055 Trans: 01/23/21 1215 [id number] Interpreted by: BARB NAVARRO MD Electronically signed by: BARB NAVARRO MD 01/23/21 1215 Assessment/Plan Assessment/Plan Admission Diagonsis Bowel Perforation Generalized Peritonitis Hyponatremia Leukocytosis Admission Status: Inpatient Order (span 2 midnights) Reason for Inpatient Admission: Pt will be going to the OR for major surgery and therefore will need to recover from that for at least 2 midnights Assessment/Plan Bowel Perforation Generalized Peritonitis Hyponatremia Leukocytosis Pt has diffuse peritonitis and therefore must go to the OR. I reviewed the CT myself and discussed the case with ER physician. We will try to do a diagnostic laparoscopy with washout, possible exploratory laparotomy, possible colon resection, possible colostomy. Will get consent, IV ABX started, pain meds as needed and anti- emetics. I discussed the case pt, going over risks and complications not limited to pain, bleeding, infection, scar, damage to bowel and need for further procedure. All questions answered to pt's satisfaction. Supervisory-Addendum Brief Verification & Attestation Participated in pt care: history, MDM, physical Personally performed: exam, history, MDM, supervision of care Care discussed with: Medical Student Procedures: n/a Verification and Attestation of Medical Student E/M Service A medical student performed and documented this service. I then reviewed and verified all information documented by the medical student and made modifications to such information, when appropriate. I personally performed a physical exam, medical decision making and then discussed any differences between the notes and made revisions as necessary to create one note. Lance Beltre , 01/23/21 , 16:57 KOLBY FRANCO MED STUDENT Jan 23, 2021 15:25 LANCE BELTRE DO Jan 23, 2021 16:47
[2021-01-23] MEDS ORDERED: MIDAZOLAM 2 MG/2 ML (VERSED) VIAL ONE (15:32)
[2021-01-23] MEDS ORDERED: fentaNYL INJ 100 MCG/2 ML AMP ONE ×2 (15:32→17:37)
[2021-01-23] MEDS ORDERED: LIDOCAINE PF 2% 5 ML (XYLOCAINE) VIAL ONE (15:32)
[2021-01-23] MEDS ORDERED: SEVOFLURANE (ULTANE) 15 ML INHAL SOLN ONE ×2 (15:32→17:34)
[2021-01-23] MEDS ORDERED: ONDANSETRON 4 MG/2 ML (SDV) Z0FRAN ONE ×2 (15:32→17:37)
[2021-01-23] MEDS ORDERED: proPOfol 200 MG/20 ML (DIPRIVAN) VIAL IV ONE ×2 (15:32→18:07)
[2021-01-23] MEDS ORDERED: SUCCINYLCHOLINE INJ 100 MG/5 ML SYR/VIAL ONE (15:33)
[2021-01-23] MEDS ORDERED: ONDA4TAB11 PO (15:39)
[2021-01-23] MEDS ORDERED: LOPE-134 PO (15:39)
[2021-01-23] MEDS: LIDOCAINE/EPI 1%-1:100,000 (XYLOCAINE) 20ML ONE ×2 (15:44→17:08)
[2021-01-23] MEDS: morphine INJ 4 MG/ML 1 ML (VIAL/SYRINGE) IVP PRN ×2 (15:58→21:13)
[2021-01-23] MEDS: LACTATED RINGERS 1,000 ML IV PRN ×4 (16:52→18:21)
[2021-01-23] MEDS ORDERED: PHENYLEPHRINE 100 MCG/ML 10 ML (ANESTHESIA) SYR ONE (17:34)
[2021-01-23] MEDS ORDERED: MEPERIDINE (DEMEROL) INJ 50 MG/ML ONE (17:37)
[2021-01-23] MEDS ORDERED: morphine INJ 10 MG/ML 1ML (SYR OR VIAL) ONE (17:37)
[2021-01-23] MEDS ORDERED: HYDROmorphone 2 MG/ML VIAL (DILAUDID) ONE (17:37)
[2021-01-23] MEDS ORDERED: PROMETHAZINE INJ 25 MG/ML (PHENERGAN) AMP ONE (17:38)
[2021-01-23] MEDS ORDERED: ROCURONIUM 50 MG/5 ML (ZEMURON) VIAL IV ONE (18:13)
[2021-01-23] MEDS ORDERED: MEPERIDINE (DEMEROL) INJ 50 MG/ML IVP ONE (18:45)
[2021-01-23] MEDS ORDERED: morphine INJ 10 MG/ML 1ML (SYR OR VIAL) IVP ONE (18:45)
[2021-01-23] MEDS ORDERED: HYDROmorphone 2 MG/ML VIAL (DILAUDID) IV ONE (18:45)
--- NOTE | 2021-01-23 19:32 | Progress Note-Post Operative ---
Post-Operative Progess Note Surgeon (s)/Employer Relations Representative (s) Surgeon LANCE BELTRE DO Employer Relations Representative: none Pre-Operative Diagnosis Intestinal perforation, Diffuse peritonitis, Hyponatremia Post-Operative Diagnosis same Procedure & Operative Findings Date of Procedure 01/23/21 Procedure Performed/Findings Laparoscopic washout with drain placement Anesthesia Type GET Estimated Blood Loss Estimated blood loss (mL): less than 20ml Specimens/Packing Specimens Removed inflammatory and necrotic tissue LANCE BELTRE DO Jan 23, 2021 19:32
[2021-01-23] MEDS: metroNIDAZOLE 500 MG/100 ML IVPB (PRE-MIX) IV SCH (21:12)
[2021-01-24] VITALS (7 sets, daily range): BP systolic 101–128; BP diastolic 59–78
[2021-01-24] MEDS: morphine INJ 4 MG/ML 1 ML (VIAL/SYRINGE) IVP PRN ×6 (00:08→20:55)
[2021-01-24] MEDS: CIPROFLOXACIN 400 MG/D5W 200 ML (PRE-MIX) IV SCH ×2 (00:09→13:37)
[2021-01-24] MEDS: metroNIDAZOLE 500 MG/100 ML IVPB (PRE-MIX) IV SCH ×3 (03:43→20:55)
--- NOTE | 2021-01-24 07:53 | Progress Note - Surgery ---
YOSI ARTEAGA 01/24/21 0753: Subjective Date Seen by a Provider: Jan 24, 2021 Time Seen by a Provider: 06:41 Subjective/Events-last exam Pt reports that he is having constant pain in the LLQ that increases when he twists and reaches for items. Not having any bowel movements at this time. Denies having any bloody discharge in his underwear. Otherwise states that he is doing well and has no other concerns. Review of Systems General: No Chills, No Night Sweats HEENT: No Head Aches, No Visual Changes Pulmonary: No Dyspnea, No Cough Cardiovascular: No: Chest Pain, Palpitations Gastrointestinal: Abdominal Pain, Constipation; No: Nausea, Vomiting, Diarrhea, Hematochezia Genitourinary: No Dysuria, No Hematuria Musculoskeletal: No: neck pain, arm pain, back pain, leg pain Neurological: No: Weakness, Numbness Objective Exam Vital Signs Date Time Temp Pulse Resp B/P (MAP) Pulse Ox O2 Delivery O2 Flow Rate FiO2 01/24/21 04:00 36.4 68 21 103/59 (74) 95 Room Air 01/24/21 00:56 71 101/61 (74) 96 Room Air 01/24/21 00:26 72 101/61 (74) 96 Room Air 01/23/21 23:56 71 96/59 (71) 96 Room Air 01/23/21 23:26 36.2 73 19 99/61 (74) 97 Room Air 01/23/21 22:56 72 96/59 (71) 97 Room Air 01/23/21 22:06 71 100/64 (76) 96 Room Air 01/23/21 21:36 72 105/66 (79) 96 Room Air 01/23/21 21:06 37.4 01/23/21 21:00 72 108/67 (81) 96 Room Air 01/23/21 20:45 73 106/67 (80) 96 Room Air 01/23/21 20:30 75 107/68 (81) 95 Room Air 01/23/21 20:15 73 111/70 (84) 95 Room Air 01/23/21 20:00 37.2 74 18 120/74 (89) 95 Room Air 01/23/21 19:35 Nasal Cannula 3 01/23/21 19:35 36.6 20 113/64 (80) 94 Nasal Cannula 3 01/23/21 19:30 OxyMask 3 01/23/21 19:30 20 113/64 (80) 94 Nasal Cannula 3 01/23/21 19:20 20 116/68 (84) 95 Nasal Cannula 3 01/23/21 19:15 OxyMask 3 01/23/21 19:10 20 120/66 (84) 96 OxyMask 4 01/23/21 19:00 OxyMask 4 01/23/21 19:00 20 117/67 (84) 96 OxyMask 4 01/23/21 18:50 20 126/74 (91) 97 OxyMask 4 01/23/21 18:45 OxyMask 5 01/23/21 18:40 20 131/78 (95) 97 OxyMask 6 01/23/21 18:30 37.6 20 130/91 (104) 97 OxyMask 6 01/23/21 18:30 OxyMask 6 01/23/21 16:02 38.7 01/23/21 15:55 38.7 76 16 108/58 (75) 94 Room Air 01/23/21 15:11 39.3 01/23/21 13:36 36.5 87 98 21 01/23/21 13:00 Room Air 01/23/21 12:55 39.3 78 18 116/67 (83) 94 Room Air 01/23/21 12:46 85 18 100/57 93 Room Air 01/23/21 09:40 36.5 87 20 137/83 (101) 98 I & O 01/24/21 07:00 Intake Total 4500 ml Output Total 795 ml Balance 3705 ml Capillary Refill : Less Than 3 SecondsLess Than 3 Seconds General Appearance: No Apparent Distress, Chronically ill HEENT: PERRL/EOMI; No Photophobia Neck: Non Tender, Supple Respiratory: Chest Non Tender, Lungs Clear, Normal Breath Sounds, No Respiratory Distress Cardiovascular: Regular Rate, Rhythm, No Murmur, Normal Peripheral Pulses Gastrointestinal: normal bowel sounds, soft, tenderness (Diffuse abdominal tenderness) Extremity: Normal Capillary Refill, Normal Inspection, Non Tender, No Pedal Edema Neurologic/Psychiatric: Alert, Normal Mood/Affect Skin: Normal Color, Warm/Dry Lymphatic: No Adenopathy (neck, axilla or groin) Results Lab Laboratory Tests 01/23/21 09:45: White Blood Count 15.3H, Red Blood Count 4.88, Hemoglobin 15.2, Hematocrit 43, Mean Corpuscular Volume 88, Mean Corpuscular Hemoglobin 31, Mean Corpuscular Hemoglobin Concent 36, Red Cell Distribution Width 12.5, Platelet Count 262, Mean Platelet Volume 9.5, Immature Granulocyte % (Auto) 1, Neutrophils (%) (Auto) 88H, Lymphocytes (%) (Auto) 5L, Monocytes (%) (Auto) 6, Eosinophils (%) (Auto) 0, Basophils (%) (Auto) 0, Neutrophils # (Auto) 13.5H, Lymphocytes # (Auto) 0.7L, Monocytes # (Auto) 0.9, Eosinophils # (Auto) 0.0, Basophils # (Auto) 0.0, Immature Granulocyte # (Auto) 0.1, Sodium Level 134L, Potassium Level 4.4, Chloride Level 98, Carbon Dioxide Level 24, Anion Gap 12, Blood Urea Nitrogen 15, Creatinine 0.96, Estimat Glomerular Filtration Rate 80, BUN/Creatinine Ratio 16, Glucose Level 110H, Calcium Level 9.2, Corrected Calcium 9.5, Total Bilirubin 0.9, Aspartate Amino Transf (AST/SGOT) 23, Alanine Aminotransferase (ALT/SGPT) 24, Alkaline Phosphatase 49, Total Protein 7.5, Albumin 3.6, Lipase 16 01/23/21 10:36: Urine Color YELLOW, Urine Clarity CLEAR, Urine pH 6.0, Urine Specific [place] 1.020, Urine Protein 1+H, Urine Glucose (UA) NEGATIVE, Urine Ketones 3+H, Urine Nitrite NEGATIVE, Urine Bilirubin NEGATIVE, Urine Urobilinogen 4.0, Urine Leukocyte Esterase TRACEH, Urine RBC (Auto) NEGATIVE, Urine RBC RARE, Urine WBC 0-2, Urine Crystals PRESENTH, Urine Amorphous Sediment FEW [place] URATESH, Urine Bacteria NEGATIVE, Urine Casts NONE, Urine Mucus NEGATIVE, Urine Culture Indicated NO Microbiology 01/23/21 C. difficile GDH Antigen & Toxins - Final, Complete Assessment/Plan Assessment/Plan Assessment/Plan Assessment Bowel Perforation Generalized Peritonitis Hyponatremia Leukocytosis Plan Exploratory laproscopy done yesterday did not find any perforation. Continue antibiotics. Continue pain medication and anti-emetics PRN. Defer to medicine for management of hyponatremia. LANCE MORENO DO 01/24/21 2267: Subjective Time Seen by a Provider: 12:02 Subjective/Events-last exam Pt seen and examined, states pain is less than yesterday and controlled with meds. No BM or flatus today. Review of Systems General: No Chills, No Night Sweats HEENT: No Head Aches, No Visual Changes Pulmonary: No Dyspnea, No Cough Cardiovascular: No: Chest Pain, Palpitations Gastrointestinal: Abdominal Pain; No: Nausea, Vomiting, Hematochezia Objective Exam General Appearance: No Apparent Distress, Chronically ill Respiratory: Lungs Clear, Normal Breath Sounds, No Accessory Muscle Use, No Respiratory Distress Cardiovascular: Regular Rate, Rhythm, No Murmur Gastrointestinal: normal bowel sounds, soft, tenderness (Diffuse abdominal tenderness - better than yesterday), other (incisions are c/d/i, INDU drains with serous fluid in upper, serous fluid and some scant fatty tissue in lower. Neither has fecal contaminants or purulence) Assessment/Plan Assessment/Plan Assessment/Plan S/P Laparoscopy with washout and drain placement for bowel perforation Plan to wait for some flatus and then start clears, pain control as need and monitor drains. No hole seen yesterday during the procedure. Supervisory-Addendum Brief Verification & Attestation Participated in pt care: history, MDM, physical Personally performed: exam, history, MDM, supervision of care Care discussed with: Medical Student Procedures: n/a Verification and Attestation of Medical Student E/M Service A medical student performed and documented this service. I then reviewed and verified all information documented by the medical student and made modifications to such information, when appropriate. I personally performed a physical exam, medical decision making and then discussed any differences between the notes and made revisions as necessary to create one note. Lance Moreno , 01/24/21 , 14:26 YOSI ARTEAGA Jan 24, 2021 07:53 LANCE MORENO DO Jan 24, 2021 14:27
[2021-01-24] MEDS: VANCOMYCIN 125 MG CAPSULE PO SCH ×3 (08:27→17:49)
[2021-01-24] MEDS: NS IV 1000 ML 1,000 ML IV SCH ×4 (08:28→20:58)
--- NOTE | 2021-01-24 11:32 | Anesthesia-General Post-Op ---
General Patient Condition Mental Status/LOC: Same as Preop Cardiovascular: Satisfactory Nausea/Vomiting: Absent Respiratory: Satisfactory Pain: Controlled Complications: Absent Post Op Complications Complications None Follow Up Care/Instructions Patient Instructions None needed. Anesthesia/Patient Condition Patient Condition Patient is doing well, no complaints, stable vital signs, no apparent adverse anesthesia problems. No complications reported per nursing. D/C home per [facility] [place] Criteria: NILAY Christina CRNA Jan 24, 2021 11:32
[2021-01-24 15:46] LABS: BASOPHILS % (AUTO) 0 % (0-10); EOSINOPHILS % (AUTO) 0 % (0-10); HEMATOCRIT 36 % (40-54); HEMOGLOBIN 12.5 g/dL (13.3-17.7); LYMPHOCYTES # (AUTO) 0.7 10^3/uL (1.0-4.0); LYMPHOCYTES % (AUTO) 6 % (12-44); MEAN CORPUSCULAR HEMOGLOBIN 31 pg (25-34); MEAN CORPUSCULAR HGB CONC 35 g/dL (32-36); MEAN CORPUSCULAR VOLUME 90 fL (80-99); MEAN PLATELET VOLUME 9.8 fL (9.0-12.2); MONOCYTES # (AUTO) 0.6 10^3/uL (0.0-1.0); MONOCYTES % (AUTO) 5 % (0-12); NEUTROPHILS # (AUTO) 10.4 10^3/uL (1.8-7.8); NEUTROPHILS % (AUTO) 88 % (42-75); PLATELET COUNT 241 10^3/uL (130-400); WHITE BLOOD COUNT 11.9 10^3/uL (4.3-11.0)
[2021-01-24 16:08] LABS: ALBUMIN 2.6 GM/DL (3.2-4.5); BILIRUBIN,TOTAL 0.5 MG/DL (0.1-1.0); CALCIUM 7.8 MG/DL (8.5-10.1); CREATININE SERUM 0.66 MG/DL (0.60-1.30); POTASSIUM 3.9 MMOL/L (3.6-5.0); TOTAL PROTEIN 5.2 GM/DL (6.4-8.2)
[2021-01-25] VITALS: BP 129/75
--- NOTE | 2021-01-25 00:24 | OPERATIVE REPORT ---
DATE OF SERVICE: 01/23/2021 PREOPERATIVE DIAGNOSES: Intestinal perforation, diffuse peritonitis, hyponatremia. POSTOPERATIVE DIAGNOSES: Intestinal perforation, diffuse peritonitis, hyponatremia but no fecal contamination seen or hole identified. PROCEDURE: Laparoscopic washout with drain placement. SURGEON: Lorenzo Moreno DO MANAGER OF SUSTAINABILITY: None. ANESTHESIA: General endotracheal tube. SPECIMEN: Inflammatory necrotic tissue of bowel. BLOOD LOSS: Less than 20 mL. FLUIDS: Per anesthesia. POSTOPERATIVE CONDITION: Stable. INDICATION FOR PROCEDURE: The patient is a 60-year-old male with intestinal perforation, abscess and inflammatory changes with air seen in the midline on CT because of diffuse peritonitis needed surgery. FINDINGS: The patient had bowel stuck together. The sigmoid was stuck to the terminal ileum with some inflammatory and what looked like necrotic tissue, but no fecal contamination seen, and no hole found. PROCEDURE NOTE: After informed consent was obtained, the patient was brought to the operating room, placed on the table in supine position, sterilely prepped and draped in normal fashion. Local lidocaine was used to infiltrate the skin above the umbilicus and made an incision with 11 blade, carried down through the skin into subcutaneous tissue, deepened down to subcutaneous tissue with Bovie electrocautery down to fascia. Fascia was incised with Bovie electrocautery, bluntly entered the abdomen, swept a finger around, placed 0 Vicryl [id number] suture, then placed 11mm trocar port under direct visualization. Created pneumoperitoneum, could see adhesion and inflammatory changes in the midline right where the bladder would be, elected to place a 5 mm port in the left lower quadrant using local lidocaine, 11 blade for stab incision and VersaStep system, all done under direct visualization, placed the probe here and started carefully trying to break this apart with some blunt dissection. I elected to place another 5 mm trocar port with the VersaStep system just below this just lower in the left lower quadrant, watching this as it came in and then used a suction microwave remote sensing scientist, started these areas slowly, did not find any fecal contamination, able to finally separate and run the intestine from the cecum through the terminal ileum. The terminal ileum had couple areas of inflammatory tissue, may be some necrotic tissue, did not see any fecal contamination, no real purulence. There was a lot of serous fluid when we opened the belly, but there is no foul odor. We ran the small bowel until we got a good portion. Again, there was one area, looked like it was a firmer area on this terminal ileum, but again no obvious hole. This was right against the mesentery and the epiploica of the sigmoid colon. Again, here, saw some inflammatory tissue, but did not see a specific hole, took pictures of all this and because we were able to get down in the pelvis, did not see anything down here. Again, no purulent fluid. Because we did not see any specific holes, elected to place two [place] drains, one down in the pelvis in front of the sigmoid and one between the two layers, the two loops of small intestine of the terminal ileum where this inflammatory tissue was found, had copiously irrigated with at least a liter of warm normal saline. These were then sutured in place with 2-0 nylon sutures and then at this point, allowed the pneumoperitoneum to escape and removed the supraumbilical port, closed the incision with 0 Vicryl [id number] suture. Irrigated this incision and closed the incision with 4-0 undyed Monocryl 3 interrupted subcuticular stitches. Area was cleaned and dried. Dermabond placed here. Drain sponges were placed around the two drains and the patient was then transferred to recovery room in stable condition. Sponge, instrument and needle count correct at the end of the case. Job ID: [id number] DocumentID: [id number] Dictated Date: 01/24/2021 14:32:10 Fiberglass Product Tester Date: 01/25/2021 00:23:58 Dictated By: DO VASU GALINDO
[2021-01-25] MEDS: CIPROFLOXACIN 400 MG/D5W 200 ML (PRE-MIX) IV SCH ×2 (01:14→12:29)
[2021-01-25] MEDS: VANCOMYCIN 125 MG CAPSULE PO SCH ×4 (01:14→16:39)
[2021-01-25] MEDS: morphine INJ 4 MG/ML 1 ML (VIAL/SYRINGE) IVP PRN ×3 (01:14→12:38)
[2021-01-25 04:46] VITALS: BP 141/85
[2021-01-25] MEDS: metroNIDAZOLE 500 MG/100 ML IVPB (PRE-MIX) IV SCH ×2 (05:33→12:29)
[2021-01-25 08:05] VITALS: BP 149/84
--- NOTE | 2021-01-25 08:12 | Progress Note - Surgery ---
YOSI ARTEAGA 01/25/21 0812: Subjective Date Seen by a Provider: Jan 25, 2021 Time Seen by a Provider: 07:22 Subjective/Events-last exam Pt reports that he has not passed any gas or had any bowel movements. States that he feels like his abdomen is becoming more distended and he is having some abdominal pain. Has a yellow discharge in both of his drain collecting tubes with some bloody mucus in one of them. Denies any fever or chills. Review of Systems General: No Chills, No Night Sweats HEENT: No Head Aches, No Visual Changes Pulmonary: No Dyspnea, No Cough Cardiovascular: No: Chest Pain, Palpitations Gastrointestinal: Abdominal Pain; No: Nausea, Vomiting Genitourinary: No Dysuria, No Frequency Musculoskeletal: back pain; No: neck pain, leg pain Neurological: No: Weakness, Numbness Objective Exam Vital Signs Date Time Temp Pulse Resp B/P (MAP) Pulse Ox O2 Delivery O2 Flow Rate FiO2 01/25/21 08:05 35.8 66 20 149/84 (105) 97 Nasal Cannula 2.50 01/25/21 04:46 36.2 68 24 141/85 (103) 99 Nasal Cannula 2.00 01/25/21 00:00 36.2 72 20 129/75 (93) 98 Nasal Cannula 2.00 01/24/21 20:07 Room Air 01/24/21 20:00 35.0 65 22 128/78 (95) 96 Nasal Cannula 2.00 01/24/21 18:59 97 Room Air 01/24/21 15:57 35.2 68 20 118/72 (87) 97 Nasal Cannula 2.00 01/24/21 12:00 36.4 67 18 115/71 (86) 94 Room Air l I & O 01/25/21 07:00 Output Total 2670 ml Balance -2670 ml Capillary Refill : Less Than 3 SecondsLess Than 3 Seconds General Appearance: Chronically ill, Mild Distress HEENT: PERRL/EOMI; No Photophobia Neck: Non Tender, Supple Respiratory: Lungs Clear, Normal Breath Sounds, No Respiratory Distress Cardiovascular: Regular Rate, Rhythm, No Murmur Gastrointestinal: distended, guarding, tenderness (Diffuse abdominal tenderness), other (incisions are c/d/i, INDU drains in place) Extremity: Normal Capillary Refill, Non Tender, No Pedal Edema Neurologic/Psychiatric: Alert, Normal Mood/Affect Skin: Normal Color, Warm/Dry Lymphatic: No Adenopathy (neck, axilla or groin) Results Lab Laboratory Tests 01/24/21 15:40: White Blood Count 11.9H, Red Blood Count 4.01L, Hemoglobin 12.5L, Hematocrit 36L , Mean Corpuscular Volume 90, Mean Corpuscular Hemoglobin 31, Mean Corpuscular Hemoglobin Concent 35, Red Cell Distribution Width 13.0, Platelet Count 241, Mean Platelet Volume 9.8, Immature Granulocyte % (Auto) 1, Neutrophils (%) (Auto) 88H, Lymphocytes (%) (Auto) 6L, Monocytes (%) (Auto) 5, Eosinophils (%) (Auto) 0, Basophils (%) (Auto) 0, Neutrophils # (Auto) 10.4H, Lymphocytes # (Auto) 0.7L, Monocytes # (Auto) 0.6, Eosinophils # (Auto) 0.0, Basophils # (Auto) 0.0, Immature Granulocyte # (Auto) 0.1, Sodium Level 136, Potassium Level 3.9, Chloride Level 105, Carbon Dioxide Level 26, Anion Gap 5, Blood Urea Nitrogen 9, Creatinine 0.66, Estimat Glomerular Filtration Rate 124, BUN/Creatinine Ratio 14, Glucose Level 115H, Calcium Level 7.8L, Corrected Calcium 8.9, Total Bilirubin 0.5, Aspartate Amino Transf (AST/SGOT) 23, Alanine Aminotransferase (ALT/SGPT) 21, Alkaline Phosphatase 33L, Total Protein 5.2L, Albumin 2.6L Microbiology 01/23/21 C. difficile GDH Antigen & Toxins - Final, Complete Assessment/Plan Assessment/Plan Assessment/Plan Assessment S/P Laparoscopy with washout and drain placement for bowel perforation C.diff infection Plan to wait for some flatus and then start clears, monitor drains. No hole seen 01/23 during the procedure. Continue antibiotics to treat C.diff Continue anti-emetics and pain medications as needed. LORENZO MORENO DO 01/25/21 1335: Subjective Time Seen by a Provider: 11:51 Subjective/Events-last exam Pt seen and examined, states he is having more pain; "can't walk cause it's so bad". He denies flatus or BM. Review of Systems Pulmonary: No Dyspnea, No Cough Cardiovascular: No: Chest Pain, Palpitations Gastrointestinal: Abdominal Pain (severe); No: Nausea, Vomiting Genitourinary: No Dysuria, No Frequency Objective Exam General Appearance: Chronically ill, Mild Distress Respiratory: Lungs Clear, Normal Breath Sounds, No Accessory Muscle Use, No Respiratory Distress Cardiovascular: Regular Rate, Rhythm, No Murmur Gastrointestinal: distended (more than yesterday), guarding, tenderness (Diffuse abdominal tenderness), other (incisions are c/d/i, INDU drains in place with serous fluid, no fecal contaminants) Assessment/Plan Assessment/Plan Assessment/Plan S/P Laparoscopy with washout and drain placement for bowel perforation C.diff infection Plan to wait for some flatus and then start clears, monitor drains. No hole seen 01/23 during the procedure. Continue antibiotics to treat C.diff, Continue anti-emetics and pain medications as needed. Will monitor distention, I told pt he has to ambulate which will help his bowel start moving. My guess is he has an ileus and that is causing distention, may be helped by dulcolax suppository. Supervisory-Addendum Brief Verification & Attestation Participated in pt care: history, MDM, physical Personally performed: exam, history, MDM, supervision of care Care discussed with: Medical Student Procedures: n/a Verification and Attestation of Medical Student E/M Service A medical student performed and documented this service. I then reviewed and verified all information documented by the medical student and made modifications to such information, when appropriate. I personally performed a physical exam, medical decision making and then discussed any differences between the notes and made revisions as necessary to create one note. Lorenzo Moreno , 01/25/21 , 13:35 YOSI ARTEAGA Jan 25, 2021 08:12 LORENZO MORENO DO Jan 25, 2021 13:35
[2021-01-25] MEDS: NS IV 1000 ML 1,000 ML IV SCH (10:51)
[2021-01-25 11:50] VITALS: BP 142/82
--- NOTE | 2021-01-25 14:41 | Physical Therapy Evaluation ---
PT Evaluation-General Medical Diagnosis Admission Date Jan 23, 2021 at 11:24 Medical Diagnosis: C-diff/bowel perforation Onset Date: Jan 23, 2021 Therapy Diagnosis Therapy Diagnosis: debility Precautions Precautions/Isolations: Standard Precautions Referral Physician: Josh Reason for Referral: Evaluation/Treatment Medical History Pertinent Medical History: Smoking Current History ER secondary to abdominal pain and diarrhea x 10 days Reviewed History: Yes Social History Home: Single Level Prior Prior Level of Function SCALE: Activities may be completed with or without assistive devices. 9-Ujrbhcqodl-dhzxcag completes the activity by him/herself with no assistance from a helper. 5-Set-up or Clean-up Assistance-helper sets up or cleans up; patient completes activity. [place] assists only prior to or following the activity. 4-Supervision or Touching Assistance-helper provides verbal cues and/or touching/steadying and/or contact guard assistance as patient completes activity. Assistance may be provided throughout the activity or intermittently. 3-Partial/Moderate Assistance-helper does LESS THAN HALF the effort. [place] lifts, holds or supports trunk or limbs, but provides less than half the effort. 2-Substantial/Maximal Assistance-helper does MORE THAN HALF the effort. [place] lifts or holds trunk or limbs and provides more than half the effort. 9-Wwboioswe-bkbgie does ALL the effort. Patient does none of the effort to complete the activity. Or, the assistance of 2 or more helpers is required for the patient to complete the activity. If activity was not attempted, code reason: 7-Patient Refused. 9-Not Applicable-not attempted and the patient did not perform the activity before the current illness, exacerbation or injury. 10-Not Attempted due to Environmental Limitations-(lack of equipment, weather restraints, etc.). 88-Not Attempted due to Medical Conditions or Safety Concerns. Bed Mobility: 6 Transfers (B,C,W/C): 6 Gait: 6 Stairs: 6 Indoor Mobility (Ambulation): Independent Stairs: Independent Prior Devices Use: None PT Evaluation-Current Subjective Patient agrees to PT. Pain Numeric Pain Scale: 8 Location: Medial, Lower Location Body Site: Abdomen Pain Description: Pressure Objective Patient Orientation: Normal For Age Attachments: Drains ROM/Strength ROM Lower Extremities bilateral LE WFL Strength Lower Extremities 4-/5 grossly bilateral LE Integumentary/Posture Integumentary refer to nursing notes Bowel Incontinence: No Bladder Incontinence: No Posture WFL Neuromuscular (Tone, Coordination, Reflexes) grossly intact Sensory Vision: Functional Hearing: Functional Sensation Right Lower Extremit: Intact Sensation Left Lower Extremity: Intact Transfers Sit to Stand (QC): 4 Gait Does the Patient Walk?: Yes Mode of Locomotion: Walk Anticipated Mode of Locomotion: Walk Walk 10 feet (QC): 4 Walk 50 ft with 2 Turns(QC): 4 Walk 150 ft (QC): 4 Distance: 400' Gait Assistive Device: FWW Comments/Gait Description functional gait sequence/FWW to relieve abdominal pressure Balance Sitting Static: Normal Sitting Dynamic: Normal Standing Static: Normal Standing Dynamic: Normal Assessment/Needs 60 y.o. male, will be seen short term by skilled PT to address functional mobility to ensure compliance and safe return to home. Rehab Potential: Fair PT Long-Term Goals Delinquent Account Clerk Goals PT Delinquent Account Clerk Goals Time Frame: Feb 03, 2021 Roll Left & Right (QC): 6 Sit to Lying (QC): 6 Lying-Sitting on Side/Bed(QC): 6 Sit to Stand (QC): 6 Chair/Moo-mn-Wrhfm Xfer(QC): 6 Toilet Transfer (QC): 6 Walk 10 feet (QC): 6 Walk 50ft with 2 Turns (QC): 6 Walk 150 ft (QC): 6 PT Plan Problem List Problem List: Safety, Transfer, Bed Mobility Treatment/Plan Treatment Plan: Continue Plan of Care Treatment Plan: Bed Mobility, Education, Functional Activity [place], Functional Strength, Gait, Safety, Therapeutic Exercise, Transfers Treatment Duration: Feb 03, 2021 Frequency: 6 times per week Estimated Hrs Per Day: .25 hour per day Patient and/or Family Agrees t: Yes Time/GCodes Time In: 1411 Time Out: 142 Total Billed Treatment Time: 12 Total Billed Treatment 1 visit EVModC 12 min TORREY VALDEZ PT Jan 25, 2021 14:41
[2021-01-25] MEDS: BISACODYL 10 MG SUPP (DULCOLAX) PR SCH (15:03)
[2021-01-25 15:30] VITALS: BP 134/57
[2021-01-25 20:07] VITALS: BP 144/60
[2021-01-26] VITALS: BP 154/81
[2021-01-26] MEDS: VANCOMYCIN 125 MG CAPSULE PO SCH ×4 (00:05→18:06)
[2021-01-26 05:00] VITALS: BP 129/75
[2021-01-26 08:00] VITALS: BP 134/57
--- NOTE | 2021-01-26 08:08 | Progress Note - Surgery ---
YOSI ARTEAGA 01/26/21 0808: Subjective Date Seen by a Provider: Jan 26, 2021 Time Seen by a Provider: 07:04 Subjective/Events-last exam Pt reports that his abdominal pain and distention has improved since yesterday. Rates the pain as a 3/10 and it is a consistent pain. States that he has been having episodes of flatulence. Has had a small bowel movement. He says that he has been getting up and walking around the room. On a clear liquid diet which he says he is tolerating well. Back pain has improved. Review of Systems General: No Chills, No Night Sweats HEENT: No Head Aches, No Visual Changes Pulmonary: No Dyspnea, No Cough Cardiovascular: No: Chest Pain, Palpitations Gastrointestinal: Abdominal Pain; No: Nausea, Vomiting Genitourinary: No Dysuria, No Frequency Musculoskeletal: back pain; No: neck pain, arm pain, leg pain Neurological: No: Weakness, Numbness Objective Exam Vital Signs Date Time Temp Pulse Resp B/P (MAP) Pulse Ox O2 Delivery O2 Flow Rate FiO2 01/26/21 05:00 36.9 85 16 129/75 (93) 95 Room Air 01/26/21 00:00 36.9 79 18 154/81 (105) 93 Room Air 01/25/21 20:40 Nasal Cannula 2.00 01/25/21 20:07 36.3 74 20 144/60 (88) 96 Nasal Cannula 3.00 01/25/21 15:30 36.4 76 20 134/57 (82) 97 Nasal Cannula 2.50 01/25/21 11:50 36.2 71 20 142/82 (102) 96 Nasal Cannula 2.50 01/25/21 10:16 Nasal Cannula 3.00 01/25/21 08:24 Nasal Cannula 2.00 01/25/21 08:05 35.8 66 20 149/84 (105) 97 Nasal Cannula 2.50 l I & O 01/26/21 07:00 Intake Total 2460 ml Output Total 3080 ml Balance -620 ml Capillary Refill : Less Than 3 SecondsLess Than 3 Seconds General Appearance: WD/WN, Chronically ill HEENT: PERRL/EOMI; No Photophobia Neck: Non Tender, Supple Respiratory: Lungs Clear, Normal Breath Sounds, No Accessory Muscle Use, No Respiratory Distress Cardiovascular: Regular Rate, Rhythm, No Murmur, Normal Peripheral Pulses Gastrointestinal: normal bowel sounds, distended (improved from yesterday), guarding, tenderness (Diffuse abdominal tenderness), other (incisions are c/d/i, INDU drains in place with serous fluid, no fecal contaminants) Extremity: Normal Capillary Refill, Non Tender, No Pedal Edema Neurologic/Psychiatric: Alert, Normal Mood/Affect Skin: Normal Color, Warm/Dry Lymphatic: No Adenopathy (neck) Results Lab Microbiology 01/23/21 C. difficile GDH Antigen & Toxins - Final, Complete Assessment/Plan Assessment/Plan Assessment/Plan Assessment S/P Laparoscopy with washout and drain placement for bowel perforation C.diff infection Plan Has been started on clears diet and has had episodes of flatulence. Pt has been getting up and ambulating. Refused dulcolax suppository yesterday. Continue to monitor drains. No hole seen 01/23 during procedure. Continue antibiotics to treat C.diff Continue pain medications and anti-emetics as needed. LORENZO MORENO DO 01/26/21 1204: Subjective Time Seen by a Provider: 10:09 Subjective/Events-last exam Pt seen and examined, he is in much better spirits today. Yesterday I had to talk him out of leaving AMA. He has been passing gas and had very small BM, tolerating clears. He is ambulating without too much pain, yesterday was refusing to ambulate. Review of Systems Pulmonary: No Dyspnea, No Cough Cardiovascular: No: Chest Pain, Palpitations Gastrointestinal: Abdominal Pain; No: Nausea, Vomiting Musculoskeletal: back pain Objective Exam General Appearance: WD/WN, Chronically ill HEENT: PERRL/EOMI, Other (poor dentition) Respiratory: Lungs Clear, Normal Breath Sounds, No Accessory Muscle Use, No Respiratory Distress Cardiovascular: Regular Rate, Rhythm, No Murmur Gastrointestinal: normal bowel sounds, soft, distended (improved from yesterday), guarding (voluntary with deep palpation), tenderness (Diffuse abdominal tenderness), other (incisions are c/d/i, INDU drains in place with serous fluid, no fecal contaminants) Assessment/Plan Assessment/Plan Assessment/Plan S/P Laparoscopy with washout and drain placement for bowel perforation C.diff infection Plan to increase to soft diet and monitor bowel function. Pt has been getting up and ambulating. Continue to monitor drains. Continue Oral Vancomycin to treat C.diff, oral pain medications and anti-emetics as needed. Supervisory-Addendum Brief Verification & Attestation Participated in pt care: history, MDM, physical Personally performed: exam, history, MDM, supervision of care Care discussed with: Medical Student Procedures: n/a Verification and Attestation of Medical Student E/M Service A medical student performed and documented this service. I then reviewed and verified all information documented by the medical student and made modifications to such information, when appropriate. I personally performed a physical exam, medical decision making and then discussed any differences between the notes and made revisions as necessary to create one note. Lorenzo Moreno , 01/26/21 , 12:04 YOSI ARTEAGA Jan 26, 2021 08:08 LORENZO MORENO DO Jan 26, 2021 12:04
[2021-01-26] MEDS: BISACODYL 10 MG SUPP (DULCOLAX) PR SCH (08:57)
--- NOTE | 2021-01-26 10:18 | Physical Therapy Daily Note ---
PT Daily Note-Current Subjective Patient is very agreeable to participate with PT. Mental Status Patient Orientation: Normal For Age Transfers SCALE: Activities may be completed with or without assistive devices. 1-[id number]-[id number] completes the activity by him/herself with no assistance from a helper. 5-Set-up or Clean-up Assistance-helper sets up or cleans up; patient completes activity. Rumely assists only prior to or following the activity. 4-Supervision or Touching Assistance-helper provides verbal cues and/or touching/steadying and/or contact guard assistance as patient completes activity. Assistance may be provided throughout the activity or intermittently. 3-Partial/Moderate Assistance-helper does LESS THAN HALF the effort. Rumely lifts, holds or supports trunk or limbs, but provides less than half the effort. 2-Substantial/Maximal Assistance-helper does MORE THAN HALF the effort. Rumely lifts or holds trunk or limbs and provides more than half the effort. 1-Tbzxessha-lbarkl does ALL the effort. Patient does none of the effort to complete the activity. Or, the assistance of 2 or more helpers is required for the patient to complete the activity. If activity was not attempted, code reason: 7-Patient Refused. 9-Not Applicable-not attempted and the patient did not perform the activity before the current illness, exacerbation or injury. 10-Not Attempted due to Environmental Limitations-(lack of equipment, weather restraints, etc.). 88-Not Attempted due to Medical Conditions or Safety Concerns. Sit to Lying (QC): 6 Lying to Sitting/Side of Bed(Q: 6 Sit to Stand (QC): 6 Gait Training Does the Patient Walk?: Yes Distance: 500' Walk 10 feet (QC): 6 Walk 50 ft with 2 Turns(QC): 6 Walk 150 ft (QC): 6 Gait Assistive Device: FWW safe and functional with no deviation Assessment Nursing staff and patient instructed to ambulate PRN in hallway. Patient does not need assist, nursing staff to encourage patient and to have mask in place. Patient and staff voice understanding. PT Senior Care Goals Senior Care Goals PT Senior Care Goals Time Frame: Feb 03, 2021 Roll Left & Right (QC): 6 Sit to Lying (QC): 6 Lying-Sitting on Side/Bed(QC): 6 Sit to Stand (QC): 6 Chair/[id number] Xfer(QC): 6 Toilet Transfer (QC): 6 Walk 10 feet (QC): 6 Walk 50ft with 2 Turns (QC): 6 Walk 150 ft (QC): 6 PT Plan Treatment/Plan Treatment Plan: Discontinue PT, goals met Treatment Plan: Bed Mobility, Education, Functional Activity Chacha, Functional Strength, Gait, Safety, Therapeutic Exercise, Transfers Treatment Duration: Feb 03, 2021 Frequency: 6 times per week Estimated Hrs Per Day: .25 hour per day Patient and/or Family Agrees t: Yes Time/GCodes Time In: 838 Time Out: 848 Total Billed Treatment Time: 10 Total Billed Treatment 1 visit FA 10 min TORREY VALDEZ PT Jan 26, 2021 10:18
[2021-01-26 12:00] VITALS: BP 159/89
[2021-01-26 15:56] VITALS: BP 127/82
[2021-01-26 23:47] VITALS: BP 122/77
[2021-01-27] MEDS: VANCOMYCIN 125 MG CAPSULE PO SCH ×5 (00:12→23:36)
--- NOTE | 2021-01-27 07:36 | Progress Note - Surgery ---
YOSI ARTEAGA 01/27/21 0736: Subjective Date Seen by a Provider: Jan 27, 2021 Time Seen by a Provider: 07:01 Subjective/Events-last exam Pt had an episode of flatus today when I was in the room. Says that is the first one since yesterday afternoon. States that he had a small BM yesterday afternoon . Denied having an blood in the stool. Had an episode of severe abdominal pain late yesterday afternoon. Said it lasted about 2 hours and resolved when he got pain medication. Slight abdominal pain this morning. He believes that his abdomen is less distended than it was yesterday. Reports he has been getting up and walking around the room. Denied having any soft foods yet and is only taking clear liquids. Review of Systems General: Chills, Night Sweats HEENT: No Head Aches, No Visual Changes Pulmonary: No Dyspnea, No Cough Cardiovascular: No: Chest Pain, Palpitations Gastrointestinal: Abdominal Pain; No: Nausea, Vomiting Genitourinary: No Dysuria, No Frequency Musculoskeletal: No: neck pain, shoulder pain, arm pain, back pain, leg pain Neurological: No: Weakness, Numbness Objective Exam Vital Signs Date Time Temp Pulse Resp B/P (MAP) Pulse Ox O2 Delivery O2 Flow Rate FiO2 01/26/21 23:47 36.5 59 20 122/77 (92) 94 Room Air 01/26/21 19:30 Nasal Cannula 2.00 01/26/21 15:56 36.0 70 20 127/82 (97) 92 Room Air 01/26/21 14:54 94 Room Air 01/26/21 12:00 36.4 78 20 159/89 (112) 94 Room Air 01/26/21 08:00 36.4 76 16 134/57 (82) 97 Nasal Cannula 3.00 01/26/21 07:59 Nasal Cannula 2.00 I & O 01/27/21 07:00 Intake Total 1070 ml Output Total 1995 ml Balance -925 ml Capillary Refill : Less Than 3 SecondsLess Than 3 Seconds General Appearance: WD/WN, Chronically ill HEENT: PERRL/EOMI; No Photophobia; Other (poor dentition) Neck: Non Tender, Supple Respiratory: Lungs Clear, Normal Breath Sounds, No Accessory Muscle Use, No Respiratory Distress Cardiovascular: Regular Rate, Rhythm, No Murmur, Normal Peripheral Pulses Gastrointestinal: normal bowel sounds, soft, distended (same or slightly inceased from yesterday), guarding (voluntary with deep palpation), tenderness (Diffuse abdominal tenderness), other (incisions are c/d/i, INDU drains in place with serous fluid, no fecal contaminants) Extremity: Normal Capillary Refill, Non Tender, No Pedal Edema Neurologic/Psychiatric: Alert, Normal Mood/Affect Skin: Normal Color, Warm/Dry Lymphatic: No Adenopathy (neck) Results Lab Microbiology 01/23/21 C. difficile GDH Antigen & Toxins - Final, Complete Assessment/Plan Assessment/Plan Assessment/Plan Assessment S/P Laparoscopy with washout and drain placement for bowel perforation C.diff infection Plan Continue to monitor bowel function and flatulence. Pt should continue getting up and ambulating. Continue to monitor INDU drains. Continue Oral Vancomycin to treat C.diff, oral pain medications and anti-emetics as needed. LORENZO MORENO DO 01/27/21 1345: Subjective Time Seen by a Provider: 08:29 Subjective/Events-last exam Pt seen and examined, states he is doing ok today and would like to eat more. He did have some abdominal pain because "I didn't take the pain medicine last night, didn't want to get constipated". Review of Systems General: Chills, Night Sweats HEENT: No Head Aches, No Visual Changes Pulmonary: No Dyspnea, No Cough Cardiovascular: No: Chest Pain, Palpitations Gastrointestinal: Abdominal Pain; No: Nausea, Vomiting Objective Exam General Appearance: No Apparent Distress, Chronically ill HEENT: PERRL/EOMI, Other (poor dentition) Respiratory: Lungs Clear, Normal Breath Sounds, No Accessory Muscle Use, No Respiratory Distress Cardiovascular: Regular Rate, Rhythm, No Murmur Gastrointestinal: soft, no organomegaly, distended (same as yesterday), guarding (voluntary with deep palpation), tenderness (Diffuse abdominal tenderness), other (incisions are c/d/i, INDU drains in place with serous fluid, no fecal contaminants) Assessment/Plan Assessment/Plan Assessment/Plan C. Diff Colitis S/P Laparoscopy with washout and drain placement for bowel perforation Plan Continue to monitor bowel function and flatulence. Pt should continue getting up and ambulating. Continue to monitor INDU drains. Increase to soft diet. Continue Oral Vancomycin to treat C.diff, oral pain medications and anti-emetics as needed. Supervisory-Addendum Brief Verification & Attestation Participated in pt care: history, MDM, physical Personally performed: exam, history, MDM, supervision of care Care discussed with: Medical Student Procedures: n/a Verification and Attestation of Medical Student E/M Service A medical student performed and documented this service. I then reviewed and verified all information documented by the medical student and made modifications to such information, when appropriate. I personally performed a physical exam, medical decision making and then discussed any differences between the notes and made revisions as necessary to create one note. Lorenzo Moreno , 01/27/21 , 13:44 YOSI ARTEAGA Jan 27, 2021 07:36 LORENZO MORENO DO Jan 27, 2021 13:45
[2021-01-27 07:47] VITALS: BP 151/94
[2021-01-27] MEDS: BISACODYL 10 MG SUPP (DULCOLAX) PR SCH (08:19)
[2021-01-27 15:46] VITALS: BP 126/73
[2021-01-27 23:00] VITALS: BP 116/73
[2021-01-28] MEDS: VANCOMYCIN 125 MG CAPSULE PO SCH ×3 (05:40→18:12)
[2021-01-28 07:33] VITALS: BP 122/75
[2021-01-28] MEDS: BISACODYL 10 MG SUPP (DULCOLAX) PR SCH (08:08)
--- NOTE | 2021-01-28 09:00 | Progress Note - Surgery ---
YOSI ARTEAGA 01/28/21 0900: Subjective Date Seen by a Provider: Jan 28, 2021 Time Seen by a Provider: 08:04 Subjective/Events-last exam Pt reports that he had 1 small BM this morning. Has had several episodes of flatus this morning. States that he is still having some abdominal pain but it has improved from yesterday. Says that he is still having discharge into his INDU drains but he has not noticed any change the appearance of the discharge. Tolerating his soft diet well. Denies any other concerns when asked. Review of Systems General: No Chills, No Night Sweats HEENT: No Head Aches, No Visual Changes Pulmonary: No Dyspnea, No Cough Cardiovascular: No: Chest Pain, Palpitations Gastrointestinal: Abdominal Pain, Constipation; No: Nausea, Vomiting Genitourinary: No Dysuria, No Frequency Musculoskeletal: No: neck pain, arm pain, back pain, leg pain Neurological: No: Weakness, Numbness Objective Exam Vital Signs Date Time Temp Pulse Resp B/P (MAP) Pulse Ox O2 Delivery O2 Flow Rate FiO2 01/28/21 07:33 35.5 64 22 122/75 (91) 93 Room Air 01/28/21 07:07 Room Air 01/27/21 23:00 36.2 70 22 116/73 (87) 94 Room Air 01/27/21 19:05 Room Air 01/27/21 18:49 Room Air 01/27/21 15:46 36.8 66 22 126/73 (90) 95 Room Air 01/27/21 09:52 Room Air 0.00 I & O 01/28/21 07:00 Intake Total 1400 ml Output Total 1705 ml Balance -305 ml Capillary Refill : Less Than 3 SecondsLess Than 3 Seconds General Appearance: No Apparent Distress, Chronically ill HEENT: PERRL/EOMI; No Photophobia; Other (poor dentition) Neck: Non Tender, Supple Respiratory: Lungs Clear, Normal Breath Sounds, No Accessory Muscle Use, No Respiratory Distress Cardiovascular: Regular Rate, Rhythm, No Murmur, Normal Peripheral Pulses Gastrointestinal: soft, distended (improved from yesterday), guarding (voluntary with deep palpation), tenderness (Diffuse abdominal tenderness, worse in lower quadrants. ), other (incisions are c/d/i, INDU drains in place with serous fluid, no fecal contaminants) Extremity: Normal Capillary Refill, Non Tender, No Pedal Edema Neurologic/Psychiatric: Alert, Normal Mood/Affect Skin: Normal Color, Warm/Dry Lymphatic: No Adenopathy (neck) Results Lab Microbiology 01/23/21 C. difficile GD Antigen & Toxins - Final, Complete Assessment/Plan Assessment/Plan Assessment/Plan C. Diff Colitis S/P Laparoscopy with washout and drain placement for bowel perforation Plan Continue to monitor bowel function and flatulence. Pt should continue getting up and ambulating. Continue to monitor INDU drains. Pt is tolerating soft diet well. Continue Oral Vancomycin to treat C.diff, oral pain medications and anti-emetics as needed. LORENZO MORENO DO 01/28/21 1645: Subjective Time Seen by a Provider: 12:35 Subjective/Events-last exam Pt seen and examined, lying in bed comfortable. States he has some abomdin pain, but not too bad. Review of Systems General: No Chills, No Night Sweats Pulmonary: No Dyspnea, No Cough Cardiovascular: No: Chest Pain, Palpitations Gastrointestinal: Abdominal Pain; No: Nausea, Vomiting Genitourinary: No Dysuria, No Frequency Objective Exam General Appearance: No Apparent Distress, Chronically ill HEENT: PERRL/EOMI, Other (poor dentition) Respiratory: Lungs Clear, Normal Breath Sounds, No Accessory Muscle Use, No Respiratory Distress Cardiovascular: Regular Rate, Rhythm, No Murmur Gastrointestinal: distended (improved from yesterday), guarding (voluntary with deep palpation), tenderness (Diffuse abdominal tenderness, worse in lower quadrants. ), other (incisions are c/d/i, INDU drains in place with serous fluid, no fecal contaminants) Assessment/Plan Assessment/Plan Assessment/Plan C. Diff Colitis S/P Laparoscopy with washout and drain placement for bowel perforation Plan Pt encouraged to ambulate (I did see him walk in jacobs), use IS. Will continue soft diet. Continue Oral Vancomycin to treat C.diff, oral pain medications and anti-emetics as needed. Hopefully home tomorrow. Supervisory-Addendum Brief Verification & Attestation Participated in pt care: history, MDM, physical Personally performed: exam, history, MDM, supervision of care Care discussed with: Medical Student Procedures: n/a Verification and Attestation of Medical Student E/M Service A medical student performed and documented this service. I then reviewed and verified all information documented by the medical student and made modifications to such information, when appropriate. I personally performed a physical exam, medical decision making and then discussed any differences between the notes and made revisions as necessary to create one note. Lorenzo Moreno , 01/28/21 , 16:44 YOSI ARTEAGA Jan 28, 2021 09:00 LORENZO MORENO DO Jan 28, 2021 16:45
[2021-01-28 09:44] VITALS: BP 122/75
[2021-01-28 15:54] VITALS: BP 117/69
[2021-01-28 23:00] VITALS: BP 118/78
[2021-01-29] MEDS: VANCOMYCIN 125 MG CAPSULE PO SCH ×3 (00:05→11:45)
--- NOTE | 2021-01-29 07:11 | Progress Note - Surgery ---
YOSI ARTEAGA 01/29/21 0711: Subjective Date Seen by a Provider: Jan 29, 2021 Time Seen by a Provider: 06:38 Subjective/Events-last exam Pt reports that he is having episodes of flatus about every 3 hours. Had is last BM yesterday. States that his abdominal pain is about the same as yesterday. Den ies any nausea or vomiting. Says that he is tolerating the soft foods diet well. Denies any other concerns. Review of Systems General: No Chills, No Night Sweats HEENT: No Head Aches, No Visual Changes Pulmonary: No Dyspnea, No Cough Cardiovascular: No: Chest Pain, Palpitations Gastrointestinal: Abdominal Pain; No: Nausea, Vomiting Genitourinary: No Dysuria, No Frequency Musculoskeletal: No: shoulder pain, arm pain, back pain, leg pain Neurological: No: Weakness, Numbness Objective Exam Vital Signs Date Time Temp Pulse Resp B/P (MAP) Pulse Ox O2 Delivery O2 Flow Rate FiO2 01/28/21 23:00 36.7 65 22 118/78 (91) 95 Room Air 01/28/21 19:30 Room Air 01/28/21 15:54 36.4 62 22 117/69 (85) 94 Room Air 01/28/21 09:44 35.5 72 94 21 01/28/21 09:39 94 Room Air 0.00 01/28/21 07:33 35.5 64 22 122/75 (91) 93 Room Air 01/28/21 07:07 Room Air I & O 01/29/21 06:59 Intake Total 1325 ml Output Total 2135 ml Balance -810 ml Capillary Refill : Less Than 3 SecondsLess Than 3 Seconds General Appearance: No Apparent Distress, Chronically ill HEENT: PERRL/EOMI; No Photophobia; Other (poor dentition) Neck: Non Tender, Supple Respiratory: Lungs Clear, Normal Breath Sounds, No Accessory Muscle Use, No Respiratory Distress Cardiovascular: Regular Rate, Rhythm, No Murmur, Normal Peripheral Pulses Gastrointestinal: distended (improving), guarding (voluntary with deep palpation), tenderness (Diffuse abdominal tenderness), other (incisions are c/d/i, INDU drains in place with serous fluid, no fecal contaminants) Extremity: Normal Capillary Refill, Non Tender, No Pedal Edema Neurologic/Psychiatric: Alert, Normal Mood/Affect Skin: Normal Color, Warm/Dry Lymphatic: No Adenopathy (neck) Results Lab Microbiology 01/23/21 C. difficile GDH Antigen & Toxins - Final, Complete Assessment/Plan Assessment/Plan Assessment/Plan C. Diff Colitis S/P Laparoscopy with washout and drain placement for bowel perforation Plan Pt encouraged to ambulate, use IS. Pt is tolerating soft diet well. Continue Oral Vancomycin to treat C.diff, oral pain medications and anti-emetics as needed. Hopefully home today. LORENZO MORENO DO 01/29/21 1334: Subjective Time Seen by a Provider: 13:02 Subjective/Events-last exam Pt seen and examined; states pain mostly controlled, tolerating diet and wants to go home. Review of Systems General: No Night Sweats Pulmonary: No Dyspnea, No Cough Cardiovascular: No: Chest Pain, Palpitations Gastrointestinal: Abdominal Pain; No: Nausea, Vomiting Objective Exam General Appearance: No Apparent Distress, Chronically ill Respiratory: Lungs Clear, Normal Breath Sounds, No Accessory Muscle Use, No Respiratory Distress Cardiovascular: Regular Rate, Rhythm, No Murmur Gastrointestinal: distended (improving), guarding (voluntary with deep palpation), tenderness (Diffuse abdominal tenderness - minimal and better than yesterday), other (incisions are c/d/i, INDU drains in place with serous fluid, no fecal contaminants) Assessment/Plan Assessment/Plan Assessment/Plan C. Diff Colitis S/P Laparoscopy with washout and drain placement for bowel perforation Plan to D/C pt home; where he must continue to ambulate and use IS. Continue Oral Vancomycin to treat C.diff for 9 more days, oral pain medications and anti- emetics as needed. Supervisory-Addendum Brief Verification & Attestation Participated in pt care: history, MDM, physical Personally performed: exam, history, MDM, supervision of care Care discussed with: Medical Student Procedures: n/a Verification and Attestation of Medical Student E/M Service A medical student performed and documented this service. I then reviewed and verified all information documented by the medical student and made modifications to such information, when appropriate. I personally performed a p hysical exam, medical decision making and then discussed any differences between the notes and made revisions as necessary to create one note. Lorenzo Moreno , 01/29/21 , 13:34 YOSI ARTEAGA Jan 29, 2021 07:11 LORENZO MORENO DO Jan 29, 2021 13:34
[2021-01-29 07:30] VITALS: BP 110/70
[2021-01-29] MEDS: BISACODYL 10 MG SUPP (DULCOLAX) PR SCH (09:18)
[2021-01-29] MEDS ORDERED: ACHYD1T PO (13:35)
[2021-01-29] MEDS ORDERED: VANC125C5 PO (13:35)
--- NOTE | 2021-01-29 13:38 | Discharge Inst-Surgical ---
Discharge Inst-Surgical Depart Medication/Instructions New, Converted or Re-Newed RX: Transmitted to Pharmacy Patient Instructions Follow up Appt: Make appointment for 1 week. [phone] Instructions: No lifting greater than 20 pounds. No strenuous activity. May shower in 24 hours, no tub bath or soaking. Use incentive spirometer at home as directed. No Smoking Skin/Wound Care: May remove bandages in am. You need to leave the Dermabond on incision it will fall off on it's own. Leave drains in place and come to office to remove them. Symptoms to Report: Appetite Changes, Extremity Discoloration, Numbness/Tingling, Swelling Increased, Bleeding Excessive, Eyesight Changes, Pain Increased, Urine Color Change, Constipation(Persistent), Fever over 101 degree F, Pain/Pressure in chest, Urinating Difficulty, Cough Up/Vomit Blood, Heart Beat Irreg/Pounding, Pain/Pressure in jaw, Cramps in feet or legs, Lightheadedness, Pain/Pressure in shoulder, Diarrhea(Persistent), Memory Changes Suddenly, Questions/Concerns, Weight gain consecutive days, Dizziness/Fainting, Nausea/Vomiting, Shortness of Breath, Weight gain over 2 pounds If questions or concerns contact your physician Or seek help at emergency department. Activity Activity as Tolerated: Yes Activity Instructions: Avoid Stress to Incision Driving Instructions: No Driving/Refer to Dr. Casey Discharge Diet: No Restrictions Diet After 24 Hours: Clear Liquid if Nauseous If Any Problems/Questions/Issu: Contact Your Physician, Go to Emergency Room Skin/Wound Care Infection Signs and Symptoms: Increased Redness, Foul Odor of Wound, Increased Drainage, Skin Itchy or Has a Rash, Increased Swelling, Temperature Above 101 F Wound Care Comment: Drain care and teaching, monitor output in each drain over 24 hour period and record Bathing Instructions: Shower Stitches/Ne/Dermabond Dis: Dermabond LANCE BELTRE DO Jan 29, 2021 13:38
== END 2021-01-29 15:30 | disposition home or self-care (01) | DRG 393 ==
LOC: EDUNIT# 09:33 → ER 09:34 → 4TH 11:24
PROVIDERS: ADMIT Surgery; ATTEND Surgery
PROC: 0W9G30Z Drainage of Peritoneal Cavity with Drainage Device, Percutaneous Approach (ICD-10-PCS; principal; 2021-01-23 16:52)
DX: K63.1 Perforation of intestine (nontraumatic) (principal); K65.0 Generalized (acute) peritonitis; A04.72 Enterocolitis due to Clostridium difficile, not specified as recurrent; E87.1 Hypo-osmolality and hyponatremia; T14.8XXS Other injury of unspecified body region, sequela; G62.9 Polyneuropathy, unspecified; F17.210 Nicotine dependence, cigarettes, uncomplicated; F12.90 Cannabis use, unspecified, uncomplicated; F41.9 Anxiety disorder, unspecified
CPT/HCPCS: 36415; 74176; 80053; 81000; 83690; 85025; 87324; 87449; 94760; 96361; 96365; 96375

== ENCOUNTER 2021-02-02 13:10 | Inpatient (IN) | payer SELFPAY ==
[2021-02-02] VITALS (10 sets, daily range): BP systolic 95–123; BP diastolic 51–67
[~2021-02-02] VITALS: Ht 170 cm; Wt 69.6 kg
[~2021-02-02 13:10] MED LIST changes: +ACHYD1T PO; +LOPE-134 PO; +VANC125C5 PO
[2021-02-02] MEDS ORDERED: fentaNYL INJ 100 MCG/2 ML AMP IVP ONE (13:30)
[2021-02-02 13:34] LABS: BASOPHILS % (AUTO) 0 % (0-10); EOSINOPHILS # (AUTO) 0.1 10^3/uL (0.0-0.3); EOSINOPHILS % (AUTO) 0 % (0-10); HEMATOCRIT 39 % (40-54); HEMOGLOBIN 13.2 g/dL (13.3-17.7); LYMPHOCYTES % (AUTO) 5 % (12-44); MEAN CORPUSCULAR HEMOGLOBIN 31 pg (25-34); MEAN CORPUSCULAR HGB CONC 34 g/dL (32-36); MEAN CORPUSCULAR VOLUME 91 fL (80-99); MEAN PLATELET VOLUME 9.1 fL (9.0-12.2); MONOCYTES # (AUTO) 1.3 10^3/uL (0.0-1.0); MONOCYTES % (AUTO) 6 % (0-12); NEUTROPHILS # (AUTO) 17.6 10^3/uL (1.8-7.8); NEUTROPHILS % (AUTO) 88 % (42-75); PLATELET COUNT 410 10^3/uL (130-400); WHITE BLOOD COUNT 20.1 10^3/uL (4.3-11.0)
--- NOTE | 2021-02-02 13:38 | ED Abdominal Pain ---
General Chief Complaint: Abdominal/GI Problems Stated Complaint: STOMACH DRAIN NOT DRAINING PROPERLY Nursing Triage Note: THE PT IS AMBULATORY TO THE ROOM WITHOUT DIFFICULTY. NO DISTRESS IS SEEN ON ARRIVAL. LOC IS NORMAL FOR THE PT. THE PT C/O OF AN ABD WOUND INFECTION. Source of Information: Patient Exam Limitations: No Limitations History of Present Illness Date Seen by Provider: Feb 02, 2021 Time Seen by Provider: 13:36 Initial Comments To ER by private vehicle from [facility]. He presented there today for routine follow-up after hospital admission. He was noted to have tachycardia and purulent drainage from one of his INDU drains and referred to the emergency ro om. His pain is actually improving. He was admitted here on 01/23/21 to 01/29/2021 for C. difficile colitis with perforation. He underwent laparoscopic abdominal washout and drain placement. Has been compliant with his oral vancomycin for the C. difficile he states. He denies knowing that he has any fevers at home. He had several bowel movements yesterday and reports that he feels better in regards to his abdominal pain after that. Timing/Duration: 1-2 Days Severity/Quality: Moderate Location: Generalized Abdomen Radiation: No Radiation Activities at Onset: None Associated Symptoms: No Fever/Chills, No Nausea/Vomiting Allergies and Home Medications Allergies Coded Allergies: No Known Drug Allergies (Unverified , 10/12/10) Patient Home Medication List Home Medication List Reviewed: Yes Hydrocodone Bit/Acetaminophen (HYDROcodone/APAP 10/325 TABLET) 1 Ea Tab, 1 EA PO Q6H PRN for PAIN-MODERATE (5-7) Prescribed by: LANCE BELTRE on 01/29/21 1336 Loperamide HCl (Imodium A-D) 2 Mg Tablet, 2-4 MG PO UD PRN for DIARRHEA, (Reported) Entered as Reported by: JOSH HERZOG on 01/23/21 1539 Ondansetron (Ondansetron Odt) 4 Mg Tab.rapdis, 4 MG PO Q6H PRN for NAUSEA/VOMITING-1ST LINE, (Reported) Entered as Reported by: JOSH HERZOG on 01/23/21 1539 Vancomycin HCl (Vancomycin HCl) 125 Mg Capsule, 125 MG PO Q6HR Prescribed by: LANCE BELTRE on 01/29/21 1335 Review of Systems Review of Systems Constitutional: see HPI EENTM: No Symptoms Reported Respiratory: No Symptoms Reported Cardiovascular: No Symptoms Reported Gastrointestinal: See HPI, Abdominal Pain; Denies Constipated, Denies Diarrhea, Denies Nausea Genitourinary: No Symptoms Reported Musculoskeletal: no symptoms reported Skin: no symptoms reported Psychiatric/Neurological: No Symptoms Reported Endocrine: No Symptoms Reported Hematologic/Lymphatic: No Symptoms Reported Past Onowebb-Ygrvbl-Zjcjrv Hx Immunizations Up To Date First/Initial COVID19 Vaccinat: declined Past Medical History Surgery/Hospitalization HX: None Abdominal, Appendectomy, Orthopedic Currently Using CPAP: No Currently Using BIPAP: No Spinal Cord Injury HIV/AIDS: No Diverticulosis Degenerate Disk Disease, Back Injury, Chronic Back Pain Loss of Vision: Denies Hearing Impairment: Denies Family Medical History Diabetes Physical Exam Vital Signs Vital Signs - First Documented 02/02/21 13:30 Temp 36.9 Pulse 92 Resp 16 B/P (MAP) 133/83 (100) Pulse Ox 97 Capillary Refill : Less Than 3 Seconds Height/Weight/BMI Height: '" Weight: lbs. oz. kg; 26.23 BMI Method: General Appearance: WD/WN, no apparent distress, other (Heart rate 92, blood pressure 130s over 80s. Alert and oriented. Pleasant. Mentating well. Skin is warm and well-perfused.) HEENT: PERRL/EOMI, normal ENT inspection Neck: non-tender, full range of motion Respiratory: no respiratory distress, no accessory muscle use Gastrointestinal: soft, abnormal bowel sounds (Hypoactive), tenderness (There is no erythema of the abdominal wall to suggest cellulitis. The most inferior of the 2 [place] drains has normal clear serous fluid in it. The most superior drain does have purulent material in it.) Extremities: normal range of motion, non-tender Neurologic/Psychiatric: alert, normal mood/affect, oriented x 3 Skin: normal color, warm/dry Focused Exam Lactate Level 02/02/21 13:45: Lactic Acid Level 1.13 Lactic Acid Level Laboratory Tests Test 02/02/21 13:45 Lactic Acid Level 1.13 MMOL/L (0.50-2.00) Progress/Results/Core Measures Results/Orders Lab Results Laboratory Tests Test 02/02/21 13:30 02/02/21 13:45 Range/Units White Blood Count 20.1 H 4.3-11.0 10^3/uL Red Blood Count 4.26 L 4.30-5.52 10^6/uL Hemoglobin 13.2 L 13.3-17.7 g/dL Hematocrit 39 L 40-54 % Mean Corpuscular Volume 91 80-99 fL Mean Corpuscular Hemoglobin 31 25-34 pg Mean Corpuscular Hemoglobin Concent 34 32-36 g/dL Red Cell Distribution Width 13.3 10.0-14.5 % Platelet Count 410 H 130-400 10^3/uL Mean Platelet Volume 9.1 9.0-12.2 fL Immature Granulocyte % (Auto) 1 % Neutrophils (%) (Auto) 88 H 42-75 % Lymphocytes (%) (Auto) 5 L 12-44 % Monocytes (%) (Auto) 6 0-12 % Eosinophils (%) (Auto) 0 0-10 % Basophils (%) (Auto) 0 0-10 % Neutrophils # (Auto) 17.6 H 1.8-7.8 10^3/uL Lymphocytes # (Auto) 1.0 1.0-4.0 10^3/uL Monocytes # (Auto) 1.3 H 0.0-1.0 10^3/uL Eosinophils # (Auto) 0.1 0.0-0.3 10^3/uL Basophils # (Auto) 0.0 0.0-0.1 10^3/uL Immature Granulocyte # (Auto) 0.2 H 0.0-0.1 10^3/uL Neutrophils % (Manual) 84 % Lymphocytes % (Manual) 5 % Monocytes % (Manual) 5 % Eosinophils % (Manual) 0 % Basophils % (Manual) 0 % Band Neutrophils 6 % Blood Morphology Comment NORMAL Sodium Level 133 L 135-145 MMOL/L Potassium Level 4.0 3.6-5.0 MMOL/L Chloride Level 99 98-107 MMOL/L Carbon Dioxide Level 22 21-32 MMOL/L Anion Gap 12 5-14 MMOL/L Blood Urea Nitrogen 15 7-18 MG/DL Creatinine 0.89 0.60-1.30 MG/DL Estimat Glomerular Filtration Rate 87 BUN/Creatinine Ratio 17 Glucose Level 118 H 70-105 MG/DL Calcium Level 8.9 8.5-10.1 MG/DL Corrected Calcium 9.5 8.5-10.1 MG/DL Total Bilirubin 0.7 0.1-1.0 MG/DL Aspartate Amino Transf (AST/SGOT) 20 5-34 U/L Alanine Aminotransferase (ALT/SGPT) 30 0-55 U/L Alkaline Phosphatase 50 40-136 U/L Total Protein 7.4 6.4-8.2 GM/DL Albumin 3.3 3.2-4.5 GM/DL Urine Color YELLOW Urine Clarity CLEAR Urine pH 6.0 5-9 Urine Specific [place] 1.025 H 1.016-1.022 Urine Protein 1+ H NEGATIVE Urine Glucose (UA) NEGATIVE NEGATIVE Urine Ketones NEGATIVE NEGATIVE Urine Nitrite NEGATIVE NEGATIVE Urine Bilirubin NEGATIVE NEGATIVE Urine Urobilinogen 0.2 < = 1.0 MG/DL Urine Leukocyte Esterase NEGATIVE NEGATIVE Urine RBC (Auto) TRACE-I H NEGATIVE Urine RBC RARE /HPF Urine WBC 0-2 /HPF Urine Crystals NONE /LPF Urine Bacteria TRACE /HPF Urine Casts NONE /LPF Urine Mucus SMALL H /LPF Urine Culture Indicated NO Lactic Acid Level 1.13 0.50-2.00 MMOL/L My Orders Orders - JAMARI PARK APRN Cbc With Automated Diff (02/02/21 13:15) Comprehensive Metabolic Panel (02/02/21 13:15) Blood Culture (02/02/21 13:15) Sputum Culture (02/02/21 13:15) Urinalysis (02/02/21 13:15) Urine Culture (02/02/21 13:15) Protime With Inr (02/02/21 13:15) Partial Thromboplastin Time (02/02/21 13:15) Chest 1 View, Ap/Pa Only (02/02/21 13:15) Ed Iv/Invasive Line Start (02/02/21 13:15) Ed Iv/Invasive Line Start (02/02/21 13:15) Vital Signs Adult Sepsis Patie Q15M (02/02/21 13:15) O2 (02/02/21 13:15) Remove Rings In Anticipation O (02/02/21 13:15) Lactic Acid Analyzer (02/02/21 13:15) Ct Abdomen/Pelvis W (02/02/21 13:15) Fentanyl Inj (Sublimaze Injection) (02/02/21 13:30) Manual Differential (02/02/21 13:30) Iohexol Injection (Omnipaque 350 Mg/Ml 1 (02/02/21 14:00) Received Contrast (Hold Metformin- Contr (02/02/21 14:00) Sodium Chloride Flush (Catheter Flush Sy (02/02/21 14:00) Ns (Ivpb) (Sodium Chloride 0.9% Ivpb Bag (02/02/21 14:00) Piperacillin Sodium/Tazobactam (Zosyn Vi (02/02/21 14:00) Vancomycin Injection (Vancomycin Injecti (02/02/21 14:00) Medications Given in ED Current Medications Medications Dose Ordered Sig/Sheri Route Start Time Stop Time Status Last Admin Dose Admin Fentanyl Citrate 50 mcg ONCE ONCE IVP 02/02/21 13:30 02/02/21 13:31 DC 02/02/21 13:48 50 MCG Iohexol 100 ml ONCE ONCE IV 02/02/21 14:00 02/02/21 14:01 DC 02/02/21 14:05 91 ML Piperacillin Sod/ Tazobactam Sod 4.5 gm/Sodium Chloride 100 ml @ 200 mls/hr ONCE ONCE IV 02/02/21 14:00 02/02/21 14:29 DC 02/02/21 14:33 200 MLS/HR Sodium Chloride 10 ml NEEDED PRN IV 02/02/21 14:00 02/02/21 14:06 10 ML Sodium Chloride 100 ml ONCE ONCE IV 02/02/21 14:00 02/02/21 14:01 DC 02/02/21 14:06 80 ML Vital Signs/I&O 02/02/21 13:30 Temp 36.9 Pulse 92 Resp 16 B/P (MAP) 133/83 (100) Pulse Ox 97 Blood Pressure Mean: 100 Departure Communication (Admissions) [id number] spoke with Dr. Gusman and Dr. Beltre. Patient will need a partial colectomy and abdominal washout. Discussed this plan with the patient and he is agreeable. He is hemodynamically stable and just ate at about 10 AM which was a breakfast burrito. This can wait until tomorrow. He has had Zosyn done here in ER and I will order Zosyn IV 4.5 g every 6 hours upstairs, vancomycin 1 g IV twice daily and vancomycin orally 500 mg 4 times daily for his C. difficile colitis. We will keep him on C. difficile precautions. Impression Primary Impression: Intra-abdominal abscess Additional Impressions: Bowel perforation C. difficile colitis Sepsis Disposition: ADMITTED INPATIENT Condition: Stable Admissions Decision to Admit Reason: Admit from ER (General) Decision to Admit/Date: Feb 02, 2021 Time/Decision to Admit Time: 14:56 Departure-Patient Inst. Referrals: [facility] (PCP/Family) Primary Care Physician JAMARI PARK APRN Feb 02, 2021 13:38
[2021-02-02 13:43] LABS: ALBUMIN 3.3 GM/DL (3.2-4.5)
[2021-02-02 13:45] LABS: CALCIUM 8.9 MG/DL (8.5-10.1)
[2021-02-02 13:46] LABS: TOTAL PROTEIN 7.4 GM/DL (6.4-8.2)
[2021-02-02 13:48] LABS: BILIRUBIN,TOTAL 0.7 MG/DL (0.1-1.0)
[2021-02-02 13:49] LABS: CREATININE SERUM 0.89 MG/DL (0.60-1.30)
[2021-02-02 13:52] LABS: BILIRUBIN,URINE NEGATIVE (NEGATIVE); CLARITY,URINE CLEAR; COLOR,URINE YELLOW; GLUCOSE, URINE (UA) NEGATIVE (NEGATIVE); KETONES,URINE NEGATIVE (NEGATIVE); LEUKOCYTE ESTERASE ,URINE NEGATIVE (NEGATIVE); NITRITE,URINE NEGATIVE (NEGATIVE); PROTEIN,URINE 1+ (NEGATIVE)
[2021-02-02] MEDS ORDERED: HOLD METFORMIN - RECEIVED CONTRAST 20 ML VIAL IV SCH (14:00)
[2021-02-02] MEDS ORDERED: NS 100 ML (IVPB) BAG IV ONE (14:00)
[2021-02-02] MEDS ORDERED: PIPERACILLIN SODIUM/TAZOBACTAM 4.5 GM in NS (IVPB) 100 ML IV ONE (14:00)
[2021-02-02] MEDS ORDERED: VANCOMYCIN INJECTION 1,000 MG in NS (IVPB) 250 ML IV SCH (14:00)
[2021-02-02] MEDS ORDERED: CATHETER FLUSH 10 ML SYR IV PRN (14:00)
[2021-02-02] MEDS ORDERED: IOHEXOL 350 MG/ML 100 ML (OMNIPAQUE 350) VIAL IV ONE (14:00)
[2021-02-02 14:02] LABS: BAND NEUTROPHILS 6 %; NEUTROPHILS % (MANUAL) 84 %
[2021-02-02 14:03] LABS: BACTERIA,URINE TRACE /HPF; RBC,URINE RARE /HPF; WBC,URINE 0-2 /HPF
[2021-02-02 14:03] LABS: BASOPHILS % (MANUAL) 0 %; EOSINOPHILS % (MANUAL) 0 %; LYMPHOCYTES % (MANUAL) 5 %; MONOCYTES % (MANUAL) 5 %; RBC MORPH NORMAL
--- NOTE | 2021-02-02 14:03 | Diagnostic Imaging Report ---
INDICATION: Sepsis. FINDINGS: There is suboptimal inspiration. Mild basilar atelectasis is noted. There is no pneumothorax or consolidation. There is air trapping in the upper lobes indicating emphysema. IMPRESSION: Emphysema with basilar atelectasis. Otherwise, no acute abnormality is seen. Dictated by: Dictated on workstation # [id number]
--- NOTE | 2021-02-02 14:37 | Diagnostic Imaging Report ---
CT ABDOMEN/PELVIS W TECHNIQUE: Multiple contiguous axial images were obtained through the abdomen and pelvis after administration of intravenous contrast. All CT scans use one or more of the following dose optimizing techniques: automated exposure control, MA and/or KvP adjustment based on patient size and exam type or iterative reconstruction. INDICATION: Fever and abdominal pain. COMPARISON: 01/23/2021. FINDINGS: Lower chest: Right basilar band-like opacity has developed and favors atelectasis. No pericardial or pleural effusion. Peritoneum: There are two left-sided INDU drains in place, the lower one terminates in the central mesentery while the upper one terminates in the right upper quadrant. There is 3.1 x 2.8 cm low-attenuation collection in the right lower quadrant along the mesenteric side of the small bowel and this is new since prior exam. The upper surgical drain does course along the inferior margin of this collection but is difficult to ascertain if it definitively communicates. There is a second rim-enhancing fluid and air-filled collection in the central upper pelvis which corresponds to site of previously noted perforation. This collection measures 3.9 x 2.2 cm and does not communicate with either of the surgical drains. Liver and biliary system: The liver is normal. Gallbladder is contracted without radiopaque gallstones. No biliary duct dilatation. Spleen and Pancreas: Spleen is normal. The pancreas enhances normally without mass lesion or peripancreatic inflammatory changes. Adrenals: Normal. tract: The kidneys enhance normally without suspicious mass or obstruction. Bilateral nonobstructing 2 mm renal stones are unchanged. Urinary bladder is distended without wall thickening. Prostate is not enlarged. GI tract: Stomach is decompressed. There is wall thickening within the distal ileum adjacent to the above-mentioned fluid collections suggestive of enteritis. There has been increase in number of small bowel loops which have associated wall thickening since prior exam. Appendix is not seen. No bowel obstruction. Vasculature and Lymph nodes: Normal caliber aorta. No abdominal or pelvic lymphadenopathy. Musculoskeletal: No concerning osseous lesion. IMPRESSION: 1. There are now two small rim-enhancing collections in the right lower quadrant and central pelvis which are surrounded by sites of enteritis. The collection in the right lower quadrant potentially communicates with the more superior drain, while the more central lower abscess does not communicate with either of the drains. 2. Worsening enteritis involving multiple small bowel loops could be due to infection or Crohn's disease. Dictated by: Dictated on workstation # [id number]
[2021-02-02 15:52] LABS: INR 1.1 (0.8-1.4); PROTHROMBIN TIME PATIENT 14.2 SEC (12.2-14.7)
--- NOTE | 2021-02-02 15:55 | History & Physical-Surgical ---
KOLBY FRANCO MED STUDENT 02/02/21 1555: History of Present Illness History of Present Illness Reason for visit/HPI This is Shantanu a 60 yo male that presented to the ED with the chief complaint of tachycardia and purulent drainage from superior INDU drain. Pt went to [facility] for a routine f/u following an extended hospital stay from 01/23-01/29 for C. diff colitis and perforation that required laproscopic abdominal washout and INDU drain placement X2. Pt states that he has been complaint with vancomycin and pain medications following discharge. He states that he has struggled with constant abdominal pain since discharge. He put the pain at a 6/10 on the pain scale but currently at a 2/10 with pain medications in the ED. He has been emptying both INDU drains twice daily and has not been recording volume of fluid drained. He notes that prior to the visit to [facility] today that both drains contained serous fluid. After discharge he struggled with constipation and states that he had BMs but they were minimal in volume with little gas. He states yesterday he had multiple BMs and struggled with diarrhea most of the day. He tried taking imodium to control the symtpoms. Pt denies fever, chills, nausea, or vomiting. Date of Admission Feb 02, 2021 at 14:53 Date Seen by a Provider: Feb 02, 2021 Time Seen by a Provider: 15:00 I consulted on this patient on 02/02/21 15:46 Attending Physician Floresita Nelson DO Admitting Physician [facility] Consult Allergies and Home Medications Allergies Coded Allergies: No Known Drug Allergies (Unverified , 10/12/10) Patient Home Medication List Hydrocodone Bit/Acetaminophen (HYDROcodone/APAP 10/325 TABLET) 1 Ea Tab, 1 EA PO Q6H PRN for PAIN-MODERATE (5-7) Prescribed by: LANCE BELTRE on 01/29/21 1336 Loperamide HCl (Imodium A-D) 2 Mg Tablet, 2-4 MG PO UD PRN for DIARRHEA, (Reported) Entered as Reported by: JOSH HERZOG on 01/23/21 1539 Ondansetron (Ondansetron Odt) 4 Mg Tab.rapdis, 4 MG PO Q6H PRN for NAUSEA/VOMITING-1ST LINE, (Reported) Entered as Reported by: JOSH HERZOG on 01/23/21 1539 Vancomycin HCl (Vancomycin HCl) 125 Mg Capsule, 125 MG PO Q6HR Prescribed by: LANCE BELTRE on 01/29/21 1335 Past Fcxiluu-Hkgroh-Kwzhtn Hx Patient Social History Tobacco Use?: Yes Tobacco type used: Cigarettes (6-8 per day for 44 years) Smoking Status: Current Everyday Smoker Smokeless type used: Chew Smokeless Tobacco Frequency: Former User (during incarceration years ago) Use of E-Cig and/or Vaping dev: No Use of E-Cig and/or Vaping Robert: Never a User Substance use?: Yes Substance type: Marijuana (socially) Substance frequency: Couple times a week Alcohol Use?: No Immunizations Up To Date First/Initial COVID19 Vaccinat: declined Current Status Primary Language: Lithuanian Preferred Spoken Language: Lithuanian Is interpretation needed?: No Past Medical History Surgeries: Abdominal (hernia, laproscopic washout), Appendectomy, Orthopedic ( right shoulder, 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, C6 vertebrea removal) Currently Using CPAP: No Currently Using BIPAP: No Neuropathy (in the hands and forearms bilaterally), Spinal Cord Injury HIV/AIDS: No Diverticulosis Degenerate Disk Disease, Back Injury, Chronic Back Pain Loss of Vision: Denies Hearing Impairment: Denies Anxiety, Depression Family Medical History Diabetes (mother and sister) Review of Systems Constitutional: No chills, No diaphoresis, No dizziness, No fever; weakness (diffuse); No weight gain; weight loss (20 pounds in last month) EENTM: blurred vision, eye pain; No ear discharge, No ear pain, No double vision, No hoarseness, No mouth pain, No throat pain Respiratory: No cough, No dyspnea on exertion, No hemoptysis, No short of breath Cardiovascular: No chest pain, No edema; other (tachycardia noted at [facility] ) Gastrointestinal: abdominal pain (RLQ, LLQ), constipation, diarrhea; No hematemesis, No jaundice; loss of appetite; No melena, No nausea, No vomiting Genitourinary: decreased output; No discharge, No dysuria; frequency (increased); No hematuria; incontinence (bladder and stool); No pain; other (catheter in place) Musculoskeletal: joint pain (right thumb); No joint swelling, No muscle pain, No muscle stiffness, No muscle twitching; muscle weakness; No neck pain Skin: No change in color, No dryness, No lesions, No lumps, No rash; other (INDU drain X2 in LLQ) Psychiatric/Neurological: Anxiety (since abdominal issues began ), Depressed (since abdominal issues began ); Denies Emotional Problems, Denies Headache; Numbness (bilateral hands); Denies Seizure; Weakness Physical Exam Vital Signs Vital Signs - First Documented 02/02/21 13:30 Temp 36.9 Pulse 92 Resp 16 B/P (MAP) 133/83 (100) Pulse Ox 97 Capillary Refill : Less Than 3 Seconds Height, Weight, BMI Height: '" Weight: lbs. oz. kg; 26.23 BMI Method: General Appearance: Chronically ill, Mild Distress HEENT: PERRL/EOMI, Pharynx Normal Neck: Normal Inspection, Non Tender, Supple Respiratory: Chest Non Tender, No Accessory Muscle Use, No Respiratory Distress, Decreased Breath Sounds (bilaterally) Cardiovascular: Regular Rate, Rhythm (HR of 88 during exam), No Edema, No Gallop, No Murmur, Normal Peripheral Pulses Gastrointestinal: Distended, Tenderness (lower quadrants to palpation), Other (INDU drain X2 in place in LLQ, superior drain containing minimal purulent fluid, inferior containing 75cc of serous fluid) Rectal: Deferred Genital/Rectal: Other (catheter in place) Back: No CVA Tenderness, No Vertebral Tenderness Extremity: Normal Capillary Refill, Normal Inspection, Non Tender, No Calf Tenderness, No Pedal Edema Neurologic/Psychiatric: Alert, Oriented x3, Normal Mood/Affect Skin: Warm/Dry, Other (poor hygiene) Lymphatic: No Adenopathy (cervical or suprclavicular) Data Review Labs Laboratory Tests 02/02/21 13:30: White Blood Count 20.1H, Red Blood Count 4.26L, Hemoglobin 13.2L, Hematocrit 39L , Mean Corpuscular Volume 91, Mean Corpuscular Hemoglobin 31, Mean Corpuscular Hemoglobin Concent 34, Red Cell Distribution Width 13.3, Platelet Count 410H, Mean Platelet Volume 9.1, Immature Granulocyte % (Auto) 1, Neutrophils (%) (Auto) 88H, Lymphocytes (%) (Auto) 5L, Monocytes (%) (Auto) 6, Eosinophils (%) (Auto) 0, Basophils (%) (Auto) 0, Neutrophils # (Auto) 17.6H, Lymphocytes # (Auto) 1.0, Monocytes # (Auto) 1.3H, Eosinophils # (Auto) 0.1, Basophils # (Auto) 0.0, Immature Granulocyte # (Auto) 0.2H, Neutrophils % (Manual) 84, Lymphocytes % (Manual) 5, Monocytes % (Manual) 5, Eosinophils % (Manual) 0, Basophils % (Manual) 0, Band Neutrophils 6, Blood Morphology Comment NORMAL, Sodium Level 133L, Potassium Level 4.0, Chloride Level 99, Carbon Dioxide Level 22, Anion Gap 12, Blood Urea Nitrogen 15, Creatinine 0.89, Estimat Glomerular Filtration Rate 87, BUN/Creatinine Ratio 17, Glucose Level 118H, Calcium Level 8.9, Corrected Calcium 9.5, Total Bilirubin 0.7, Aspartate Amino Transf (AST/SGOT) 20, Alanine Aminotransferase (ALT/SGPT) 30, Alkaline Phosphatase 50, Total Protein 7.4, Albumin 3.3 02/02/21 13:45: Urine Color YELLOW, Urine Clarity CLEAR, Urine pH 6.0, Urine Specific [place] 1.025H, Urine Protein 1+H, Urine Glucose (UA) NEGATIVE, Urine Ketones NEGATIVE, Urine Nitrite NEGATIVE, Urine Bilirubin NEGATIVE, Urine Urobilinogen 0.2, Urine Leukocyte Esterase NEGATIVE, Urine RBC (Auto) TRACE-IH, Urine RBC RARE, Urine WBC 0-2, Urine Crystals NONE, Urine Bacteria TRACE, Urine Casts NONE, Urine Mucus SMALLH, Urine Culture Indicated NO, Lactic Acid Level 1.13 02/02/21 15:29: Prothrombin Time 14.2, INR Comment 1.1, Activated Partial Thromboplast Time 44H Assessment/Plan Assessment/Plan Assessment/Plan Assessment: Abdominal/ Pelvic CT on 02/02: 1. There are now two small rim-enhancing collections in the right lower quadrant and central pelvis which are surrounded by sites of enteritis. The collection in the right lower quadrant potentially communicates with the more superior drain, while the more central lower abscess does not communicate with either of the drains. 2. Worsening enteritis involving multiple small bowel loops could be due to infection or Crohn's disease. abdominal pain most likely due to above CXR 02/02 showed emphysema with basilar atelectasis INDU drain X2 LLQ- superior drain containing purulent fluid, serous fluid in inferior drain catheter in place neuropathy-chronic incontinence leukocytosis- WBC of 20.1 on 02/02 anxiety/depression Plan: open bowel resection and washout scheduled for tomorrow continue oral vancomycin begin IV antibiotics continue pain medication monitor patient presentation and pain NPO after midnight FLORESITA NELSON DO 02/02/211954: History of Present Illness History of Present Illness Reason for visit/HPI Patient is a 60-year-old male who had recent hospitalization and surgery for C. difficile colitis with perforation. Patient had diagnostic laparoscopy with washout and drain placement. Patient was discharged on 01 29. Patient states continued abdominal pain. Abdominal pain is continued to worsen. Diffuse. Patient states that he is eating but not eating all that well. Patient states his pain is 6 out of 10. Patient states that the drainage from one of his tubes has kind of become more purulent. Patient states his been compliant with antibiotics. Patient had a CT scan today demonstrating intra-abdominal abscesses and enteritis. The intra-abdominal abscess 1 looks to be minimal to drain and the other one does not look to be able to be drained. Patient currently denies any nausea vomiting fever sweats chills shortness of breath or chest pain Allergies and Home Medications Allergies Coded Allergies: No Known Drug Allergies (Unverified , 10/12/10) Patient Home Medication List Home Medication List Reviewed: Yes Hydrocodone Bit/Acetaminophen (HYDROcodone/APAP 10/325 TABLET) 1 Ea Tab, 1 EA PO Q6H PRN for PAIN-MODERATE (5-7) Prescribed by: LANCE BELTRE on 01/29/21 1336 Loperamide HCl (Imodium A-D) 2 Mg Tablet, 2-4 MG PO UD PRN for DIARRHEA, (Reported) Entered as Reported by: JOSH HERZOG on 01/23/21 1539 Ondansetron (Ondansetron Odt) 4 Mg Tab.rapdis, 4 MG PO Q6H PRN for NAUSEA/VOMITING-1ST LINE, (Reported) Entered as Reported by: JOSH HERZOG on 01/23/21 1539 Vancomycin HCl (Vancomycin HCl) 125 Mg Capsule, 125 MG PO Q6HR Prescribed by: LANCE BELTRE on 01/29/21 1335 Past Ilbzmvk-Esyvvq-Aktkkh Hx Past Medical History Surgeries: Abdominal (hernia, laproscopic washout), Appendectomy, Orthopedic ( right shoulder, 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, C6 vertebrea removal) Anxiety Family Medical History Reviewed Nursing Family Hx Diabetes (mother and sister) Review of Systems Constitutional: No chills, No diaphoresis, No dizziness, No fever; weakness (diffuse); No weight gain; weight loss (20 pounds in last month) EENTM: No ear discharge, No hoarseness Respiratory: No cough, No short of breath Cardiovascular: No chest pain Gastrointestinal: abdominal pain (RLQ, LLQ), constipation, diarrhea, loss of appetite; No nausea, No vomiting Genitourinary: decreased output, incontinence (bladder and stool) Musculoskeletal: joint pain (right thumb); No joint swelling, No muscle pain, No muscle stiffness Skin: No change in color, No rash Psychiatric/Neurological: Denies Emotional Problems; Numbness (bilateral hands); Denies Seizure; Weakness Physical Exam General Appearance: No Apparent Distress, Chronically ill; No Mild Distress HEENT: PERRL/EOMI, Pharynx Normal Neck: Normal Inspection, Non Tender, Supple Respiratory: Chest Non Tender, No Accessory Muscle Use, No Respiratory Distress Cardiovascular: Regular Rate, Rhythm, No JVD Gastrointestinal: Distended (Minimally), Tenderness (lower quadrants to palpation), Other (INDU drain X2 in place in LLQ, superior drain containing minimal purulent fluid, inferior containing 75cc of serous fluid) Rectal: Deferred Genital/Rectal: Other (catheter in place) Back: No CVA Tenderness, No Vertebral Tenderness Extremity: Normal Capillary Refill, Non Tender Neurologic/Psychiatric: Alert, Oriented x3, Normal Mood/Affect Skin: Warm/Dry Lymphatic: No Adenopathy (cervical or suprclavicular) Assessment/Plan Assessment/Plan Admission Diagonsis Intra-abdominal abscess Enteritis. C. difficile colitis Recent diagnostic laparoscopy with washout and drain placement Admission Status: Inpatient Order (span 2 midnights) Reason for Inpatient Admission: Patient will be in the hospital for 2 midnights due to needing surgical intervention and postoperative care. Assessment/Plan Intra-abdominal abscess Enteritis. C. difficile colitis Recent diagnostic laparoscopy with washout and drain placement Patient 60-year-old male with C. difficile colitis with perforation he had diagnostic laparoscopy with washout and drain placement. Patient was discharged from 01/29/2021. Patient returns with intra-abdominal abscesses and worsening in enteritis by CT scan. Patient white count 20,000. Patient was discussed need for sigmoid resection with end colostomy all other indicated procedures. Patient understands risk and benefits and wishes to proceed. We will plan on doing this tomorrow. Patient is on Zosyn. We will keep n.p.o. We will medically optimize and plan for surgery tomorrow. Patient in agreement with plan. Supervisory-Addendum Brief Verification & Attestation Participated in pt care: history, MDM, physical Personally performed: exam, history, MDM, supervision of care Care discussed with: Medical Student Procedures: n/a Results interpretation: Verified all documentation Verification and Attestation of Medical Student E/M Service A medical student performed and documented this service in my presence. I rev iewed and verified all information documented by the medical student and made modifications to such information, when appropriate. I personally performed the physical exam and medical decision making. Floresita Nelson, Feb 02, 2021,20:00 KOLBY FRANCO MED STUDENT Feb 02, 2021 15:55 FLORESITA NELSON DO Feb 02, 2021 19:55
[2021-02-02] MEDS ORDERED: VANCOMYCIN 1500 MG/NS 500 ML IVPB IV NR ×2 (16:30)
--- NOTE | 2021-02-02 16:34 | Tele-ICU Progress Note ---
Subjective Date Seen by a Provider: Feb 02, 2021 Time Seen by a Provider: 16:33 Subjective/Events-last exam pt apparently surgical floor pt. no tele icu consult. If needed will follow later. d/w RN Sepsis Event Evaluation Height, Weight, BMI Height: '" Weight: lbs. oz. kg; 26.26 BMI Method: Focused Exam Lactate Level 02/02/21 13:45: Lactic Acid Level 1.13 Lactic Acid Level Laboratory Tests Test 02/02/21 13:45 Lactic Acid Level 1.13 MMOL/L (0.50-2.00) Exam Exam Patient acknowledged, consented, and participated in this virtual visit which was conducted using real time audio/video Vital Signs Date Time Temp Pulse Resp B/P (MAP) Pulse Ox O2 Delivery O2 Flow Rate FiO2 02/02/21 16:15 89 22 114/62 (79) 92 Room Air 02/02/21 15:10 88 16 133/83 91 02/02/21 13:30 36.9 92 16 133/83 (100) 97 Height & Weight Height: '" Weight: lbs. oz. kg; 26.26 BMI Method: General Appearance: Chronically ill, Mild Distress HEENT: PERRL/EOMI, Pharynx Normal Neck: Normal Inspection, Non Tender, Supple Respiratory: Chest Non Tender, No Accessory Muscle Use, No Respiratory Distress, Decreased Breath Sounds (bilaterally) Cardiovascular: Regular Rate, Rhythm (HR of 88 during exam), No Edema, No Gallop, No Murmur, Normal Peripheral Pulses Capillary Refill: Less Than 3 Seconds Gastrointestinal: soft, abnormal bowel sounds (Hypoactive), tenderness (There is no erythema of the abdominal wall to suggest cellulitis. The most inferior of the 2 [place] drains has normal clear serous fluid in it. The most superior drain does have purulent material in it.) Extremity: Normal Capillary Refill, Normal Inspection, Non Tender, No Calf Tenderness, No Pedal Edema Neurologic/Psychiatric: Alert, Oriented x3, Normal Mood/Affect Skin: Warm/Dry, Other (poor hygiene) Lymphatic: No Adenopathy (cervical or suprclavicular) Results Lab Laboratory Tests 02/02/21 13:30 Assessment/Plan Assessment/Plan see above YAMEL NGO MD Feb 02, 2021 16:34
[2021-02-02] MEDS ORDERED: ONDANSETRON 4 MG/2 ML (SDV) Z0FRAN IV PRN (16:45)
[2021-02-02] MEDS: fentaNYL INJ 100 MCG/2 ML AMP IV PRN (17:07)
[2021-02-02] MEDS: VANCOMYCIN 125 MG CAPSULE PO SCH ×2 (17:52→23:54)
[2021-02-02] MEDS ORDERED: VANCOMYCIN 125 MG CAPSULE PO SCH (18:00)
[2021-02-02] MEDS: LACTATED RINGERS 1,000 ML IV SCH ×2 (20:24→23:39)
[2021-02-02] MEDS: PIPERACILLIN/TAZO 4.5 GM/NS 100 ML IV SCH ×2 (20:24)
[2021-02-02] MEDS ORDERED: ACETAMINOPHEN 325 MG TABLET ONE (20:41)
[2021-02-02] MEDS ORDERED: ACETAMINOPHEN 325 MG TABLET PO PRN (20:45)
[2021-02-03] VITALS (24 sets, daily range): BP systolic 88–146; BP diastolic 52–106
[2021-02-03] MEDS: LACTATED RINGERS 1,000 ML IV SCH ×4 (02:27→22:43)
[2021-02-03] MEDS: VANCOMYCIN 1 GM/NS 250 ML IVPB IV SCH ×4 (04:08→18:52)
[2021-02-03 04:39] LABS: BASOPHILS % (AUTO) 0 % (0-10); EOSINOPHILS % (AUTO) 0 % (0-10); HEMATOCRIT 33 % (40-54); HEMOGLOBIN 11.3 g/dL (13.3-17.7); LYMPHOCYTES # (AUTO) 0.9 10^3/uL (1.0-4.0); LYMPHOCYTES % (AUTO) 6 % (12-44); MEAN CORPUSCULAR HEMOGLOBIN 31 pg (25-34); MEAN CORPUSCULAR HGB CONC 34 g/dL (32-36); MEAN CORPUSCULAR VOLUME 93 fL (80-99); MEAN PLATELET VOLUME 9.3 fL (9.0-12.2); MONOCYTES # (AUTO) 1.2 10^3/uL (0.0-1.0); MONOCYTES % (AUTO) 7 % (0-12); NEUTROPHILS # (AUTO) 13.8 10^3/uL (1.8-7.8); NEUTROPHILS % (AUTO) 86 % (42-75); PLATELET COUNT 319 10^3/uL (130-400)
[2021-02-03 04:56] LABS: POTASSIUM 3.9 MMOL/L (3.6-5.0)
[2021-02-03 04:57] LABS: CALCIUM 8.2 MG/DL (8.5-10.1)
[2021-02-03 05:01] LABS: CREATININE SERUM 0.92 MG/DL (0.60-1.30)
[2021-02-03] MEDS: VANCOMYCIN 125 MG CAPSULE PO SCH ×4 (05:07→22:48)
[2021-02-03] MEDS: PIPERACILLIN/TAZO 4.5 GM/NS 100 ML IV SCH ×6 (05:07→20:02)
[2021-02-03] MEDS: fentaNYL INJ 100 MCG/2 ML AMP IV PRN ×6 (06:07→22:48)
--- NOTE | 2021-02-03 07:51 | Progress Note - Surgery ---
ABRAHAMDALLINAJAY 02/03/21 0751: Subjective Date Seen by a Provider: Feb 03, 2021 Time Seen by a Provider: 07:06 Subjective/Events-last exam Today when I visited the pt he was resting comfortably in bed and had a pleasant demeanor. He confirms that he is NPO and expecting surgery today. His abdomen remains tender and distended, drains in place show minimal fluid - drain 1 is has foamy serous fluid and drain 2 has purulent fluid. He states that he has had multiple soft and loose BMs, but does not know if they are bloody. No new concerns or complaints overnight. Review of Systems General: No Chills, No Night Sweats, No Fatigue; Malaise HEENT: No Head Aches, No Visual Changes, No Eye Pain, No Dysphasia, No Sore Throat Pulmonary: No Dyspnea, No Cough, No Pleuritic Chest Pain Cardiovascular: No: Chest Pain, Palpitations, Orthopnea, Edema, Lt Headedness Gastrointestinal: Abdominal Pain, Diarrhea; No: Nausea, Vomiting, Constipation Genitourinary: No Dysuria, No Frequency, No Incontinence, No Hematuria Musculoskeletal: No: neck pain, shoulder pain, back pain, leg pain, foot pain Neurological: No: Weakness, Numbness, Change in speech, Confusion, Seizures Focused Exam Lactate Level 02/02/21 13:45: Lactic Acid Level 1.13 Objective Exam Vital Signs Date Time Temp Pulse Resp B/P (MAP) Pulse Ox O2 Delivery O2 Flow Rate FiO2 02/03/21 06:00 80 18 99/55 (70) 96 Nasal Cannula 2.00 02/03/21 05:00 73 20 108/59 (75) 95 Nasal Cannula 2.00 02/03/21 04:00 71 15 105/62 (76) 96 Nasal Cannula 2.00 02/03/21 03:25 36.8 Nasal Cannula 2.00 02/03/21 03:00 68 19 88/61 (70) 99 Nasal Cannula 2.00 02/03/21 02:00 75 19 97/59 (72) 95 Nasal Cannula 2.00 02/03/21 01:00 64 18 89/53 (65) 97 Nasal Cannula 2.00 02/03/21 01:00 65 02/03/21 00:00 73 20 90/52 (65) 97 Nasal Cannula 2.00 02/02/21 23:00 71 13 106/51 (69) 95 Nasal Cannula 2.00 02/02/21 22:00 36.7 Nasal Cannula 2.00 02/02/21 22:00 36.7 02/02/21 22:00 85 19 103/51 (68) 93 Nasal Cannula 2.00 02/02/21 21:30 39.0 02/02/21 21:00 92 19 107/57 (74) 93 Nasal Cannula 2.00 02/02/21 20:45 Nasal Cannula 2.00 02/02/21 20:45 Nasal Cannula 2.00 02/02/21 20:45 39.2 02/02/21 20:00 90 Room Air 02/02/21 20:00 39.1 87 18 103/54 (70) 90 Room Air 02/02/21 20:00 38.5 02/02/21 20:00 39.1 87 18 90 Room Air 02/02/21 19:00 85 24 95/52 (66) 90 Room Air 02/02/21 19:00 85 02/02/21 17:00 85 21 113/62 (79) 88 Room Air 02/02/21 16:45 83 22 116/64 (81) 90 Room Air 02/02/21 16:30 85 23 116/64 (81) 90 Room Air 02/02/21 16:15 Room Air 02/02/21 16:15 86 21 123/67 (85) 02/02/21 16:15 89 22 114/62 (79) 92 Room Air 02/02/21 16:08 87 02/02/21 16:00 114/62 (79) 02/02/21 15:10 88 16 133/83 91 02/02/21 13:30 36.9 92 16 133/83 (100) 97 I & O 02/03/21 07:00 Intake Total 2300 ml Output Total 965 ml Balance 1335 ml Capillary Refill : Less Than 3 Seconds General Appearance: No Apparent Distress, WD/WN, Chronically ill HEENT: PERRL/EOMI, Pharynx Normal Neck: Full Range of Motion, Non Tender, Supple Respiratory: Chest Non Tender, Lungs Clear, Normal Breath Sounds, No Accessory Muscle Use, No Respiratory Distress Cardiovascular: Regular Rate, Rhythm, No Edema, No Gallop, No Murmur, Normal Peripheral Pulses Peripheral Pulses: 2+ Radial Pulses (R), 2+ Radial Pulses (L) Gastrointestinal: soft, no pulsatile mass, distended, tenderness (There is no erythema of the abdominal wall to suggest cellulitis. The most inferior of the 2 Warren-Sotelo drains (1) has foamy serous fluid in it. The most superior drain (2) does have purulent material in it.) Extremity: Normal Capillary Refill, Normal Range of Motion, Non Tender, No Calf Tenderness, No Pedal Edema Neurologic/Psychiatric: Alert, Oriented x3, No Motor/Sensory Deficits, Normal Mood/Affect, data collection technician II-XII Norm as Tested Skin: Normal Color, Warm/Dry Lymphatic: No Adenopathy (cervical or axillary) Results Lab Laboratory Tests 02/02/21 13:30: White Blood Count 20.1H, Red Blood Count 4.26L, Hemoglobin 13.2L, Hematocrit 39L , Mean Corpuscular Volume 91, Mean Corpuscular Hemoglobin 31, Mean Corpuscular Hemoglobin Concent 34, Red Cell Distribution Width 13.3, Platelet Count 410H, Mean Platelet Volume 9.1, Immature Granulocyte % (Auto) 1, Neutrophils (%) (Auto) 88H, Lymphocytes (%) (Auto) 5L, Monocytes (%) (Auto) 6, Eosinophils (%) (Auto) 0, Basophils (%) (Auto) 0, Neutrophils # (Auto) 17.6H, Lymphocytes # (Auto) 1.0, Monocytes # (Auto) 1.3H, Eosinophils # (Auto) 0.1, Basophils # (Auto) 0.0, Immature Granulocyte # (Auto) 0.2H, Neutrophils % (Manual) 84, Lymphocytes % (Manual) 5, Monocytes % (Manual) 5, Eosinophils % (Manual) 0, Basophils % (Manual) 0, Band Neutrophils 6, Blood Morphology Comment NORMAL, Sodium Level 133L, Potassium Level 4.0, Chloride Level 99, Carbon Dioxide Level 22, Anion Gap 12, Blood Urea Nitrogen 15, Creatinine 0.89, Estimat Glomerular Filtration Rate 87, BUN/Creatinine Ratio 17, Glucose Level 118H, Calcium Level 8.9, Corrected Calcium 9.5, Total Bilirubin 0.7, Aspartate Amino Transf (AST/SGOT) 20, Alanine Aminotransferase (ALT/SGPT) 30, Alkaline Phosphatase 50, Total Protein 7.4, Albumin 3.3 02/02/21 13:45: Urine Color YELLOW, Urine Clarity CLEAR, Urine pH 6.0, Urine Specific [place] 1 .025H, Urine Protein 1+H, Urine Glucose (UA) NEGATIVE, Urine Ketones NEGATIVE, Urine Nitrite NEGATIVE, Urine Bilirubin NEGATIVE, Urine Urobilinogen 0.2, Urine Leukocyte Esterase NEGATIVE, Urine RBC (Auto) TRACE-IH, Urine RBC RARE, Urine WBC 0-2, Urine Crystals NONE, Urine Bacteria TRACE, Urine Casts NONE, Urine Mucus SMALLH, Urine Culture Indicated NO, Lactic Acid Level 1.13 02/02/21 15:29: Prothrombin Time 14.2, INR Comment 1.1, Activated Partial Thromboplast Time 44H 02/03/21 04:03: White Blood Count 16.0H, Red Blood Count 3.61L, Hemoglobin 11.3L, Hematocrit 33L , Mean Corpuscular Volume 93, Mean Corpuscular Hemoglobin 31, Mean Corpuscular Hemoglobin Concent 34, Red Cell Distribution Width 13.3, Platelet Count 319, Mean Platelet Volume 9.3, Immature Granulocyte % (Auto) 1, Neutrophils (%) (Auto) 86H, Lymphocytes (%) (Auto) 6L, Monocytes (%) (Auto) 7, Eosinophils (%) (Auto) 0, Basophils (%) (Auto) 0, Neutrophils # (Auto) 13.8H, Lymphocytes # (Auto) 0.9L, Monocytes # (Auto) 1.2H, Eosinophils # (Auto) 0.0, Basophils # (Auto) 0.0, Immature Granulocyte # (Auto) 0.1, Sodium Level 136, Potassium Level 3.9, Chloride Level 103, Carbon Dioxide Level 22, Anion Gap 11, Blood Urea Nitrogen 14, Creatinine 0.92, Estimat Glomerular Filtration Rate 84, BUN/Creatinine Ratio 15, Glucose Level 90, Calcium Level 8.2L Assessment/Plan Assessment/Plan Assessment/Plan Intra-abdominal abscess Enteritis. C. difficile colitis Recent diagnostic laparoscopy with washout and drain placement Plan: Surgery today for colon resection with possible colostomy. PT is NPO overnight and anticipating surgery. Discussed recovery to include rest today followed by gradual increasing activity and liquid diet as tolerated starting tomorrow. Continue ABX and pain control Medicine will also follow LANCE MORENO DO 02/03/21 0929: Subjective Time Seen by a Provider: 09:21 Subjective/Events-last exam Pt seen and examined, no acute distress. Review of Systems General: No Chills, No Night Sweats; Malaise Pulmonary: No Dyspnea, No Cough Cardiovascular: No: Chest Pain, Palpitations Gastrointestinal: Abdominal Pain; No: Nausea, Vomiting Genitourinary: No Dysuria, No Frequency Objective Exam General Appearance: No Apparent Distress, Chronically ill HEENT: PERRL/EOMI, Pharynx Normal Respiratory: Lungs Clear, Normal Breath Sounds, No Accessory Muscle Use, No Respiratory Distress Cardiovascular: Regular Rate, Rhythm, No Murmur Gastrointestinal: soft, distended, tenderness (There is no erythema of the abdominal wall to suggest cellulitis. The most inferior of the 2 Warren-Sotelo drains (1) has foamy serous fluid in it. The most superior drain (2) does have purulent material in it.) Assessment/Plan Assessment/Plan Assessment/Plan Intra-abdominal abscess Enteritis. C. difficile colitis Recent diagnostic laparoscopy with washout and drain placement Plan: Surgery today for colon resection with end colostomy; possible small bowel resection. PT is NPO overnight and anticipating surgery. Discussed recovery to include rest today followed by gradual increasing activity and liquid diet as tolerated starting tomorrow. Continue ABX and pain control Supervisory-Addendum Brief Verification & Attestation Participated in pt care: history, MDM, physical Personally performed: exam, history, MDM, supervision of care Care discussed with: Medical Student Procedures: n/a Verification and Attestation of Medical Student E/M Service A medical student performed and documented this service. I then reviewed and verified all information documented by the medical student and made modifications to such information, when appropriate. I personally performed a physical exam, medical decision making and then discussed any differences between the notes and made revisions as necessary to create one note. Lance Moreno , 02/03/21 , 09:29 AJAY STODDARD Feb 03, 2021 07:51 LANCE MORENO DO Feb 03, 2021 09:29
[2021-02-03] MEDS ORDERED: MEPERIDINE (DEMEROL) INJ 50 MG/ML IVP ONE (09:00)
[2021-02-03] MEDS ORDERED: fentaNYL INJ 100 MCG/2 ML AMP IVP ONE (09:00)
[2021-02-03] MEDS ORDERED: morphine INJ 10 MG/ML 1ML (SYR OR VIAL) IVP ONE (09:00)
[2021-02-03] MEDS ORDERED: ONDANSETRON 4 MG/2 ML (SDV) Z0FRAN IVP PRN (09:00)
[2021-02-03] MEDS ORDERED: MIDAZOLAM 2 MG/2 ML (VERSED) VIAL ONE (09:10)
[2021-02-03] MEDS ORDERED: LIDOCAINE PF 2% 5 ML (XYLOCAINE) VIAL ONE (09:10)
[2021-02-03] MEDS ORDERED: proPOfol 200 MG/20 ML (DIPRIVAN) VIAL IV ONE (09:10)
[2021-02-03] MEDS ORDERED: SEVOFLURANE (ULTANE) 15 ML INHAL SOLN ONE ×3 (09:10→11:37)
[2021-02-03] MEDS ORDERED: fentaNYL INJ 100 MCG/2 ML AMP ONE ×2 (09:10→11:37)
[2021-02-03] MEDS ORDERED: ONDANSETRON 4 MG/2 ML (SDV) Z0FRAN ONE (09:10)
[2021-02-03] MEDS ORDERED: ROCURONIUM 50 MG/5 ML (ZEMURON) VIAL IV ONE (10:01)
[2021-02-03] MEDS ORDERED: ROPIVACAINE 5MG/ML 30ML VIAL ONE (10:02)
[2021-02-03] MEDS ORDERED: SUCCINYLCHOLINE INJ 100 MG/5 ML SYR/VIAL ONE (10:02)
[2021-02-03] MEDS: LACTATED RINGERS 1,000 ML IV PRN ×2 (10:30→11:41)
[2021-02-03] MEDS ORDERED: morphine INJ 10 MG/ML 1ML (SYR OR VIAL) ONE (10:48)
[2021-02-03] MEDS ORDERED: GLYCOPYRROLATE 0.2 MG/ML (ROBINUL) 2 ML VIAL ONE (11:42)
[2021-02-03] MEDS ORDERED: NEOSTIGMINE 3 MG/3 ML VIAL ONE (11:42)
--- NOTE | 2021-02-03 11:45 | Progress Note-Post Operative ---
Post-Operative Progess Note Surgeon (s)/Business Team Leader (s) Surgeon LANCE BELTRE DO Business Team Leader: Uzma Pre-Operative Diagnosis Intestinal perforation, Diffuse peritonitis, Hyponatremia Post-Operative Diagnosis Sigmoid colon perforation Necrotic Small bowel Multiple intra-abdominal abscesses Procedure & Operative Findings Date of Procedure 02/03/21 Procedure Performed/Findings 1) Hartmans procedure with end colostomy, sigmoid colon resection 2) Extended Right hemicolectomy Anesthesia Type GET Estimated Blood Loss Estimated blood loss (mL): 150ml Specimens/Packing Specimens Removed sigmoid colon TI, right colon and portion of transverse colon LANCE BELTRE DO Feb 03, 2021 11:45
[2021-02-03] MEDS ORDERED: PROMETHAZINE INJ 25 MG/ML (PHENERGAN) AMP ONE (12:24)
[2021-02-03] MEDS ORDERED: HYDROmorphone 2 MG/ML VIAL (DILAUDID) ONE (12:25)
[2021-02-03] MEDS ORDERED: HYDROmorphone 2 MG/ML VIAL (DILAUDID) IV ONE (13:00)
--- NOTE | 2021-02-03 16:47 | OPERATIVE REPORT ---
DATE OF SERVICE: 02/03/2021 PREOPERATIVE DIAGNOSES: Intraabdominal abscess, probable intestinal perforation, C. diff, and abdominal pain. POSTOPERATIVE DIAGNOSES: 1. Sigmoid colon perforation. 2. Necrotic small bowel. 3. Multiple intraabdominal abscesses. PROCEDURES PERFORMED: 1. Baudilio's end colostomy with sigmoid colon resection. 2. Extended right hemicolectomy. SURGEON: Lorenzo Moreno DO. PHARMACY CLERK: Amilcar Gusman DO. ANESTHESIA: General endotracheal tube. SPECIMENS: Sigmoid colon and terminal ileum, extended right colon and a portion of transverse colon. ESTIMATED BLOOD LOSS: 150 mL. FLUIDS: Per anesthesia. POSTOPERATIVE CONDITION: Stable. INDICATION FOR PROCEDURE: The patient is a 60-year-old male, who had previous visit to the hospital, C. diff with possible perforation, but diagnostic laparoscopy and washout did not show anything. No fecal material. He had been in the hospital, doing well, for about 5 or 6 days, home and then this was about week and a half later, came back in with abdominal pain. CT showed abscesses. FINDINGS: The patient had multiple intraabdominal abscesses, one in the right upper quadrant, couple in the pelvis, he had some necrotic small bowel, look like he have a perforation of the sigmoid colon. PROCEDURE NOTE: After informed consent was obtained, the patient was brought to the operating room, placed on the operating table in supine position, and sterilely prepped and draped in a normal fashion. A midline incision made with a #10 blade starting from just above the umbilicus, carried down suprapubically, carried down through the skin into subcutaneous tissue, deepened down to subcutaneous tissue with Bovie electrocautery down to fascia. The fascia was incised with Bovie electrocautery and bluntly entered the abdomen. There were a lot of adhesions in the midline inferiorly. These were carefully broken up with blunt dissection and then continued to go along the fascia and peritoneum with a Bovie electrocautery. I also extended this superiorly and then actually during the case, had to extend it more superiorly to get to the right upper quadrant. Upon entry, I noted abscesses, suctioned these out, broke up the loculations, started freeing up the intestine, and could see a hole in the sigmoid colon, able to pull the sigmoid colon up to go down to the rectum, scored the mesentery of the rectum and then able to go under this bluntly and get a finger behind this and then placed a contour stapler across the rectum, clamped, held it for 30 seconds, fired, thereby transecting it and then started taking the sigmoid colon off with the LigaSure, clamping, coagulating, and transecting and carefully coming across this under, staying away from the right and left pelvis, avoiding the ureters, got up a little ways and then felt in the right colon and looked at the small bowel that was attached to the sigmoid colon, it looked necrotic. It did not look good. The necrotic and inflamed area was right at the ileo-cecal valve and therefore couldn't resection just the small bowel. I elected to do a right ed- colectomy. I made a defect in the good portion under the terminal ileum in the mesentery and then used a AJITH to clamp across, fired and then came across this with the LigaSure, clamping, coagulating, and transecting, coming across the terminal ileum to the cecum and then taking the cecum off. Unfortunately, the cecum started looking dusky, had actually taken it off and passed this off table, then the rest of the ascending colon started to turn dusky, so then we removed the rest of the ascending colon. In order to do this, we came across the transverse colon and made a defect in the transverse colon along the tenia with a Bovie electrocautery and then along the antimesenteric border of the terminal ileum. Held these together with a AJITH-75, clamped and fired thereby creating a [id number] functional end-to-end anastomosis. I then used a AJITH-100 to clamp across the enterocolotomy to close this, clamped and closed this and then took the rest of this colon out, came across the mesentery with the LigaSure. I had already freed up along the white line of Toldt to be able to get this out. Once this was removed, we had copiously irrigated previously about 4 liters of normal saline and then irrigated another couple of liters on the right side, then freed up the descending colon along the white line of Toldt with the Bovie electrocautery and bringing this into the midline to be able to pull this up and pulled up nicely. We then cut off the bad portion of the sigmoid colon, removed the sigmoid colon, passed this off the table, again irrigated with saline and all this appeared good. The anastomosis appeared good. I then made a defect in the left lower quadrant, grasping the skin with a Janna, making a circular defect and then going down through the fat, taking out some of the fat down to the fascia, made a cruciate incision in the fascia and then went through the muscle, spread it apart bluntly, and then used Bovie electrocautery to cut on the peritoneum, got two fingers through here and then able to grasp to place a Highland through, grasped the descending colon, pulled this through the defect in the muscle and skin to begin our colostomy. Once this was pulled through, I made sure there was no twist and it looked good. There had been an abscess up in the right upper quadrant. This was taken down. We took out the right colon. At this point, there was no bleeding. There was no further abscess collection. There was no fecal material, irrigated again and suctioned this out. I believe a total of irrigation was 1600 of normal saline. At this point, I then brought the omentum down across the midline and then closed the midline incision closing the fascia with a #1 double stranded PDS suture running from the superior portion to the inferior portion tying to itself, irrigated incision, and then left it with wet to dries, elected not to close because of the abscesses. I then placed a 10/10 drape to cover this and then matured the colostomy, Laura type matured, cut off the staple line and then at the 3, 6, 9, and 12 o'clock positions, used a 3-0 Vicryl to go through the distal portion and then down further on the colon and then at the skin, doing a Laura type maturity of this colostomy and then in between each of these two more 3-0 Vicryl sutures to mature this colostomy, good color, looked viable and I then placed the colostomy device, cleaned the abdomen, and then placed a wet-to-dry in the midline incision. The patient tolerated the procedure. Sponge, instrument, and needle count correct at the end of the case. Dr. Gusman assisted on this case helping to make incisions, close incisions, identify anatomy, hold anatomy out of the way and mature the colostomy. Job ID: [id number] DocumentID: [id number] Dictated Date: 02/03/2021 11:55:18 Senior It Security Analyst Date: 02/03/2021 16:47:43 Dictated By: DO VASU GALINDO
[2021-02-04] MEDS: fentaNYL INJ 100 MCG/2 ML AMP IV PRN ×9 (01:49→21:43)
[2021-02-04] MEDS ORDERED: ANTACID SUSP 30 ML UDC (MYLANTA) ONE (01:59)
[2021-02-04] MEDS ORDERED: ANTACID SUSP 30 ML UDC (MYLANTA) PO PRN (02:00)
[2021-02-04 04:00] VITALS: BP 153/95
[2021-02-04] MEDS ORDERED: TROUGH ORDER-PHARMACY XX NR (04:00)
[2021-02-04] MEDS: PIPERACILLIN/TAZO 4.5 GM/NS 100 ML IV SCH ×6 (04:00→21:31)
[2021-02-04] MEDS: VANCOMYCIN 1 GM/NS 250 ML IVPB IV SCH ×2 (05:19)
[2021-02-04] MEDS: VANCOMYCIN 125 MG CAPSULE PO SCH ×3 (05:19→17:45)
[2021-02-04] MEDS: LACTATED RINGERS 1,000 ML IV SCH ×3 (06:03→21:32)
--- NOTE | 2021-02-04 06:27 | Progress Note - Surgery ---
MOISENILAY [facility] [place] 02/04/21 0627: Subjective Date Seen by a Provider: Feb 04, 2021 Time Seen by a Provider: 06:45 Subjective/Events-last exam POD 1 S/P Baudilio's end colostomy with sigmoid colon resection and extended right hemicolectomy SCAR, patient afebrile. Patient Banegas was discontinued Patient currently reports of abdominal pain, and burning on urination. serosanguineous output noted in colostomy bag, but no air or stool output INDU drain also contains serosanguineous fluid. Patient reports pain is otherwise well controlled and is tolerating ice chips Review of Systems General: No Chills; Other (Fevers/night sweats) Pulmonary: No Dyspnea, No Cough Cardiovascular: No: Chest Pain, Palpitations Gastrointestinal: Abdominal Pain; No: Nausea, Vomiting Genitourinary: Dysuria Focused Exam Lactate Level 02/02/21 13:45: Lactic Acid Level 1.13 Objective Exam Vital Signs Date Time Temp Pulse Resp B/P (MAP) Pulse Ox O2 Delivery O2 Flow Rate FiO2 02/04/21 04:00 36.8 85 23 153/95 (114) 95 Nasal Cannula 2.00 02/04/21 01:00 80 02/03/21 23:20 36.1 Nasal Cannula 2.00 02/03/21 20:07 35.8 02/03/21 20:00 87 24 131/83 (99) 96 Nasal Cannula 2.00 02/03/21 19:20 96 Nasal Cannula 2.00 02/03/21 19:00 87 02/03/21 19:00 Nasal Cannula 2.00 02/03/21 18:00 92 20 134/80 (98) 96 Nasal Cannula 2.00 02/03/21 17:00 92 25 125/75 (92) 97 Nasal Cannula 2.00 02/03/21 16:29 36.9 02/03/21 16:00 92 22 137/80 (99) 96 Nasal Cannula 2.00 02/03/21 15:44 97 Nasal Cannula 2.00 02/03/21 15:00 89 12 129/78 (95) 97 Nasal Cannula 2.00 02/03/21 14:00 85 10 122/69 (86) 96 Nasal Cannula 2.00 02/03/21 13:30 Nasal Cannula 2.00 02/03/21 13:10 36.4 18 126/78 (94) 95 Nasal Cannula 2 02/03/21 13:10 Nasal Cannula 2 02/03/21 13:10 80 29 129/76 (91) 95 Nasal Cannula 2.00 02/03/21 13:07 Nasal Cannula 2 02/03/21 13:00 82 26 123/73 (89) 96 Nasal Cannula 2.00 02/03/21 13:00 83 02/03/21 13:00 OxyMask 2 02/03/21 13:00 18 123/73 (90) 95 OxyMask 2 02/03/21 12:50 OxyMask 5 02/03/21 12:50 18 125/106 (112) 96 OxyMask 4 02/03/21 12:50 80 25 125/106 (112) 96 Nasal Cannula 2.00 02/03/21 12:40 18 125/76 (92) 99 OxyMask 5 02/03/21 12:40 80 20 125/76 (96) 95 Nasal Cannula 2.00 02/03/21 12:35 OxyMask 6 02/03/21 12:30 83 19 146/77 (99) 81 Nasal Cannula 2.00 02/03/21 12:30 18 146/77 (100) 93 OxyMask 6 02/03/21 12:27 83 19 127/80 (100) 90 Nasal Cannula 2.00 02/03/21 12:25 OxyMask 6 02/03/21 12:20 18 125/86 (99) 95 OxyMask 6 02/03/21 12:14 OxyMask 6 02/03/21 12:14 36.5 16 118/81 (93) 97 OxyMask 6 02/03/21 12:14 76 26 118/81 (97) Nasal Cannula 2.00 02/03/21 09:00 79 16 101/55 (70) 97 Nasal Cannula 2.00 02/03/21 08:29 37.6 02/03/21 08:15 93 Nasal Cannula 2.00 02/03/21 08:00 73 21 100/61 (71) 95 Nasal Cannula 2.00 02/03/21 07:00 79 02/03/21 07:00 80 17 100/53 (71) 93 Nasal Cannula 2.00 I & O 02/04/21 07:00 Intake Total 6485 ml Output Total 2495 ml Balance 3990 ml Capillary Refill : Less Than 3 Seconds General Appearance: No Apparent Distress, Chronically ill HEENT: No Pale Conjunctivae (L), No Pale Conjunctivae (R); Other (Dentition missing) Neck: Non Tender, Supple Respiratory: Chest Non Tender, No Accessory Muscle Use, No Respiratory Distress Cardiovascular: Regular Rate, Rhythm, No Murmur Peripheral Pulses: 2+ Radial Pulses (R), 2+ Radial Pulses (L) Gastrointestinal: soft, distended, tenderness (tenderness to light palpation. ), other (Ostomy located in LLQ, INDU drain located on R side) Extremity: Normal Capillary Refill, No Calf Tenderness, No Pedal Edema Neurologic/Psychiatric: Alert, Oriented x3, Normal Mood/Affect Skin: Normal Color, Warm/Dry Results Lab Laboratory Tests 02/04/21 04:07: Vancomycin Level Trough 9.5L Microbiology 02/02/21 MRSA Screen - Final, Complete MRSA not isolated 02/02/21 Blood Culture - Preliminary, Resulted No growth 02/02/21 Urine Culture - Final, Complete NO GROWTH Assessment/Plan Assessment/Plan Assessment/Plan S/P Baudilio's end colostomy with sigmoid colon resection with extended right hemicolectomy Dysuria Enteritis. C. difficile colitis Recent diagnostic laparoscopy with washout and drain placement Plan: UA for dysuria Continue pain management Advance diet to Clear liquid as long as it is well tolerated. Up out of bed as tolerated Continue to monitor colostomy output and INDU drain FLORESITA NELSON DO 02/04/21 1129: Subjective Subjective/Events-last exam Pain controlled. Tolerating clear liquids. No bowel function from colostomy. Denies n/v fever sweats chills shortness of breath or chest pain. INDU serosang. Objective Exam General Appearance: No Apparent Distress, Chronically ill HEENT: PERRL/EOMI Neck: Non Tender, Supple Respiratory: Chest Non Tender, No Accessory Muscle Use, No Respiratory Distress Cardiovascular: Regular Rate, Rhythm, No JVD Gastrointestinal: soft, distended (minimal), tenderness (incsional), other (Ostomy located in LLQ, INDU drain located on R side, open midline wound, no signs of infection) Extremity: Normal Capillary Refill, Non Tender, No Calf Tenderness Neurologic/Psychiatric: Alert, Oriented x3 Skin: Normal Color, Warm/Dry Lymphatic: No Adenopathy Assessment/Plan Assessment/Plan Assessment/Plan S/P Baudilio's and extended right hemicolectomy Dysuria- likely from banegas monitor Enteritis secondary to intraabdominal infection C. difficile colitis Recent diagnostic laparoscopy with washout and drain placement clears Lovenox for dvt prophylaxis continue abx encourage IS move to floor await bowel function to advance diet. labs in am likely wound vac tomorrow. Supervisory-Addendum Brief Verification & Attestation Participated in pt care: history, MDM, physical Personally performed: exam, history, MDM, supervision of care Care discussed with: Medical Student Procedures: n/a Results interpretation: Verified all documentation Verification and Attestation of Medical Student E/M Service A medical student performed and documented this service in my presence. I reviewed and verified all information documented by the medical student and made modifications to such information, when appropriate. I personally performed the physical exam and medical decision making. Floresita Nelson, Feb 04, 2021,11:29 NILAY PHIPPS [facility] Feb 04, 2021 06:27 FLORESITA NELSON DO Feb 04, 2021 11:29
[2021-02-04] MEDS ORDERED: VANCOMYCIN 500 MG/NS 100 ML IV ONE ×2 (07:30)
[2021-02-04 08:00] VITALS: BP 138/86
[2021-02-04] MEDS: ENOXAPARIN 40 MG/0.4 ML (LOVENOX) SYR SC SCH (11:35)
[2021-02-04 11:36] VITALS: BP 135/87
[2021-02-04 16:00] VITALS: BP 128/74
[2021-02-04] MEDS: VANCOMYCIN 1250 MG/NS 250 ML IVPB IV SCH ×2 (17:45)
[2021-02-04 19:35] VITALS: BP 122/69
[2021-02-05 00:45] VITALS: BP 121/70
[2021-02-05] MEDS: fentaNYL INJ 100 MCG/2 ML AMP IV PRN ×7 (01:24→23:32)
[2021-02-05] MEDS: VANCOMYCIN 125 MG CAPSULE PO SCH ×5 (01:25→23:34)
[2021-02-05] MEDS: PIPERACILLIN/TAZO 4.5 GM/NS 100 ML IV SCH ×6 (04:11→21:36)
[2021-02-05 04:40] VITALS: BP 131/71
[2021-02-05] MEDS: VANCOMYCIN 1250 MG/NS 250 ML IVPB IV SCH ×2 (05:12)
[2021-02-05] MEDS: LACTATED RINGERS 1,000 ML IV SCH ×2 (05:13→10:57)
[2021-02-05 06:14] LABS: HEMATOCRIT 30 % (40-54); HEMOGLOBIN 10.1 g/dL (13.3-17.7); MEAN CORPUSCULAR HEMOGLOBIN 31 pg (25-34); MEAN CORPUSCULAR HGB CONC 34 g/dL (32-36); MEAN CORPUSCULAR VOLUME 91 fL (80-99); PLATELET COUNT 281 10^3/uL (130-400); WHITE BLOOD COUNT 9.9 10^3/uL (4.3-11.0)
[2021-02-05 06:27] LABS: ALBUMIN 2.2 GM/DL (3.2-4.5); POTASSIUM 3.8 MMOL/L (3.6-5.0)
[2021-02-05 06:28] LABS: CALCIUM 7.6 MG/DL (8.5-10.1)
[2021-02-05 06:31] LABS: BILIRUBIN,TOTAL 0.4 MG/DL (0.1-1.0)
[2021-02-05 06:33] LABS: CREATININE SERUM 0.67 MG/DL (0.60-1.30)
--- NOTE | 2021-02-05 07:12 | Progress Note - Surgery ---
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 Pt was comfortably laying in bed watching TV upon entering the room. He stated that his pain is better controlled today and put it at a 2/10. Pt states that there is still significant pain with movement and palpation. He describes getting up to sit in the chair yesterday but ended up bleeding through his dressings and hospital gown. Pt is concerned with loss of blood from incision site. He is on a clear liquid diet. Pt is urinating well but still complains of improving dysuria. INDU drain contained about 30ml of bloody serous fluid. Colostomy was viable. Review of Systems General: Appetite (increased, on clear liquid diet) Gastrointestinal: Abdominal Pain (diffuse, pain to palpation near incision site), Other (colostomy in place); No: Nausea, Vomiting Genitourinary: Dysuria (improving), Frequency (increased frequency, IV fliuds running ); No Hematuria; Other (550ml of urine emptied during examination) Focused Exam Lactate Level 02/02/21 13:45: Lactic Acid Level 1.13 Time of Focused Exam: 06:45 Respiratory: Chest Non Tender, No Accessory Muscle Use, No Respiratory Distress, Decreased Breath Sounds, Other (Pt on 2L N/C) Cardiovascular: Regular Rate, Rhythm, No Edema, No Gallop, No Murmur, Normal Peripheral Pulses Skin: normal color, warm/dry, other (abdomen covered in bloody dressings, difficult to visualize, colostomy viable) Objective Exam Vital Signs Date Time Temp Pulse Resp B/P (MAP) Pulse Ox O2 Delivery O2 Flow Rate FiO2 02/05/21 04:40 36.7 76 24 131/71 (91) 97 Nasal Cannula 2.00 02/05/21 00:45 36.6 76 22 121/70 (87) 96 Nasal Cannula 2.00 02/04/21 20:00 93 Room Air 0.00 02/04/21 19:35 36.0 70 18 122/69 (86) 94 Room Air 02/04/21 17:02 98 Nasal Cannula 1.00 02/04/21 16:00 36.1 69 22 128/74 (92) 93 Room Air 02/04/21 12:51 70 02/04/21 12:00 36.6 02/04/21 11:49 95 Room Air 02/04/21 11:37 36.2 02/04/21 11:36 78 20 135/87 (103) 95 Nasal Cannula 1.00 02/04/21 09:20 Nasal Cannula 1.00 02/04/21 08:00 78 13 138/86 (103) 95 Nasal Cannula 2.00 02/04/21 08:00 36.5 02/04/21 08:00 Nasal Cannula 2.00 I & O 02/05/21 07:00 Intake Total 2070 ml Output Total 2910 ml Balance -840 ml Capillary Refill : Less Than 3 Seconds General Appearance: No Apparent Distress, Chronically ill HEENT: PERRL/EOMI, Pharynx Normal Neck: Normal Inspection, Non Tender, Supple Respiratory: Chest Non Tender, No Accessory Muscle Use, No Respiratory Distress, Decreased Breath Sounds Cardiovascular: Regular Rate, Rhythm, No Edema, No Gallop, No Murmur Peripheral Pulses: 2+ Radial Pulses (R), 2+ Radial Pulses (L) Gastrointestinal: distended, tenderness (incsional to palpation), other (Ostomy located in LLQ, INDU drain located on R side, open midline wound) Extremity: Normal Capillary Refill, Non Tender, No Calf Tenderness, No Pedal Edema Neurologic/Psychiatric: Alert, Oriented x3, Normal Mood/Affect Skin: Normal Color, Warm/Dry, Other Lymphatic: No Adenopathy (cervical or supraclavicular) Results Lab Laboratory Tests 02/05/21 05:58: White Blood Count 9.9, Red Blood Count 3.27L, Hemoglobin 10.1L, Hematocrit 30L, Mean Corpuscular Volume 91, Mean Corpuscular Hemoglobin 31, Mean Corpuscular Hemoglobin Concent 34, Red Cell Distribution Width 13.2, Platelet Count 281, Mean Platelet Volume 9.0, Sodium Level 134L, Potassium Level 3.8, Chloride Level 104, Carbon Dioxide Level 24, Anion Gap 6, Blood Urea Nitrogen 6L, Creatinine 0.67, Estimat Glomerular Filtration Rate 121, BUN/Creatinine Ratio 9, Glucose Level 96, Calcium Level 7.6L, Corrected Calcium 9.0, Magnesium Level 2.0, Total Bilirubin 0.4, Aspartate Amino Transf (AST/SGOT) 19, Alanine Aminotransferase (ALT/SGPT) 18, Alkaline Phosphatase 43, Total Protein 5.0L, Albumin 2.2L Microbiology 02/02/21 MRSA Screen - Final, Complete MRSA not isolated 02/02/21 Blood Culture - Preliminary, Resulted No growth 02/02/21 Urine Culture - Final, Complete NO GROWTH Assessment/Plan Assessment/Plan Assessment/Plan Assessment: S/P Baudilio's and extended right hemicolectomy performed 02/03 Dysuria- improving Enteritis secondary to intraabdominal infection Recent diagnostic laparoscopy with washout and drain placement right sided INDU drain containing 30 ml of bloody serous fluid colostomy in place- viable open midline wound leukocytosis- resolved at 9.9 on 02/05, down from 16.0 on 02/04 anemia- Hgb of 10.1 on 02/05, downtrending from 11.3 on 02/04 Plan: continue clear liquid diet Lovenox for dvt prophylaxis continue IV abx continue pain medication as needed encourage IS use encourage ambulation await bowel function to advance diet. likely wound vac placement today on midline incision continued wound care LANCE BELTRE DO 02/05/21 1640: Subjective Time Seen by a Provider: 16:31 Subjective/Events-last exam Pt seen and examined, sitting up in chair. Tolerating diet. Review of Systems General: Appetite (increased, on clear liquid diet) Pulmonary: No Dyspnea, No Cough Cardiovascular: No: Chest Pain, Palpitations Gastrointestinal: Other (colostomy in place); No: Nausea, Vomiting, Abdominal Pain (diffuse, pain to palpation near incision site) Genitourinary: Dysuria (improving), Frequency (increased frequency, IV fliuds running ), Other (550ml of urine emptied during examination) Focused Exam Skin: other (abdomen covered in bloody dressings, difficult to visualize, c olostomy viable) Objective Exam General Appearance: No Apparent Distress, Chronically ill Respiratory: Chest Non Tender, No Accessory Muscle Use, No Respiratory Distress, Decreased Breath Sounds Cardiovascular: Regular Rate, Rhythm, No Murmur Gastrointestinal: tenderness (incisional to palpation), other (Ostomy located in LLQ viable with fecal material in bag, INDU drain located on R side serosangui nous fluid, open midline wound) Assessment/Plan Assessment/Plan Assessment/Plan S/P Baudilio's and extended right hemicolectomy performed 02/03 Dysuria- improving leukocytosis- resolved at 9.9 on 02/05, down from 16.0 on 02/04 anemia- Hgb of 10.1 on 02/05, downtrending from 11.3 on 02/04 Plan: Start soft diet, Lovenox for dvt prophylaxis, continue IV and oral abx, switch to oral pain medication as needed, decrease IV fluids to KVO encourage IS use, encourage ambulation. Wound care to place wound vac placement today on midline incision Supervisory-Addendum Brief Verification & Attestation Participated in pt care: history, MDM, physical Personally performed: exam, history, MDM, supervision of care Care discussed with: Medical Student Procedures: n/a Verification and Attestation of Medical Student E/M Service A medical student performed and documented this service. I then reviewed and verified all information documented by the medical student and made modifications to such information, when appropriate. I personally performed a physical exam, medical decision making and then discussed any differences between the notes and made revisions as necessary to create one note. Lance Beltre , 02/05/21 , 16:42 KOLBY FRANCO MED STUDENT Feb 05, 2021 07:12 LANCE BELTRE DO Feb 05, 2021 16:40
[2021-02-05 08:00] VITALS: BP 137/78
[2021-02-05] MEDS: ENOXAPARIN 40 MG/0.4 ML (LOVENOX) SYR SC SCH (10:58)
[2021-02-05 11:33] VITALS: BP 128/75
[2021-02-05] MEDS ORDERED: IBUP-2473 PO (11:47)
--- NOTE | 2021-02-05 14:09 | Anesthesia-General Post-Op ---
General Patient Condition Mental Status/LOC: Same as Preop Cardiovascular: Satisfactory Nausea/Vomiting: Absent Respiratory: Satisfactory Pain: Controlled Complications: Absent Post Op Complications Complications None Follow Up Care/Instructions Patient Instructions None needed. Anesthesia/Patient Condition Patient Condition Patient is doing well, no complaints, stable vital signs, no apparent adverse anesthesia problems. No complications reported per nursing. ELIZABETH TOMPKINS CRNA Feb 05, 2021 14:09
[2021-02-05 15:46] VITALS: BP 118/68
[2021-02-05 19:04] VITALS: BP 130/74
[2021-02-06] VITALS (7 sets, daily range): BP systolic 121–162; BP diastolic 70–91
[2021-02-06] MEDS ORDERED: TROUGH ORDER-PHARMACY XX NR (05:00)
[2021-02-06] MEDS: fentaNYL INJ 100 MCG/2 ML AMP IV PRN ×6 (05:21→23:49)
[2021-02-06] MEDS: VANCOMYCIN 125 MG CAPSULE PO SCH ×4 (05:29→23:48)
--- NOTE | 2021-02-06 07:56 | Progress Note - Surgery ---
KOLBY FRANCO MED STUDENT 02/06/21 0756: Subjective Date Seen by a Provider: Feb 06, 2021 Time Seen by a Provider: 07:00 Subjective/Events-last exam This is Shantanu a 60 yo male with S/P Baudilio's and extended right hemicolectomy. He appeared anxious laying in bed watching TV. He stated that his pain was improving and put it at a 1/10 on the pain scale. Upon questioning he became paranoid about the nursing staff. He stated that the nurse is "hiding from him" and that he has "feared for his life last night". He is very concerned about IV fluids and what the bags contain. Pt refused Lovenox stating that he is concerned with bleeding from incision site. Wound vac was placed yesterday. Pt is on a soft diet and eating well. Review of Systems General: Appetite (eating soft diet well, increased appetite) Pulmonary: No Dyspnea, No Cough, No Pleuritic Chest Pain Cardiovascular: No: Chest Pain, Palpitations, Edema Gastrointestinal: Abdominal Pain (incisional ), Other (colostomy in place); No: Nausea, Vomiting Genitourinary: No Dysuria; Frequency (increased- on IV fliuds); No Hematuria Neurological: Other (paranoid/anxiety) Focused Exam Time of Focused Exam: 06:45 Respiratory: Chest Non Tender, Lungs Clear, Normal Breath Sounds, No Accessory Muscle Use, No Respiratory Distress Cardiovascular: Regular Rate, Rhythm, No Edema, No Gallop, No Murmur Skin: normal color, warm/dry, other (wound vac in place) Objective Exam Vital Signs Date Time Temp Pulse Resp B/P (MAP) Pulse Ox O2 Delivery O2 Flow Rate FiO2 02/06/21 05:10 36.5 66 20 162/77 (105) 93 Room Air 02/06/21 04:50 36.5 66 18 162/77 (105) 94 Room Air 02/06/21 02:25 70 02/06/21 00:29 36.8 73 23 122/82 (95) Room Air 02/05/21 20:15 Room Air 02/05/21 19:04 36.9 73 20 130/74 (92) 94 Room Air 02/05/21 15:46 36.5 67 18 118/68 (85) 96 Room Air 02/05/21 11:33 36.5 67 20 128/75 (92) 95 Room Air 02/05/21 08:00 36.7 67 20 137/78 (97) 93 Room Air 02/05/21 08:00 Room Air I & O 02/06/21 07:00 Intake Total 3250 ml Output Total 4565 ml Balance -1315 ml Capillary Refill : Less Than 3 Seconds General Appearance: Anxious, Chronically ill HEENT: PERRL/EOMI, Pharynx Normal Neck: Normal Inspection, Non Tender, Supple Respiratory: Chest Non Tender, Lungs Clear, Normal Breath Sounds, No Accessory Muscle Use, No Respiratory Distress Cardiovascular: Regular Rate, Rhythm, No Edema, No Gallop, No Murmur Peripheral Pulses: 2+ Radial Pulses (R), 2+ Radial Pulses (L) Gastrointestinal: tenderness (incisional to palpation- minimal), other (Ostomy located in LLQ viable with fecal material in bag, INDU drain located on R side 50 ml of bloody serosanguinous fluid, midline wound with wound vac containing minimal dried blood) Extremity: Normal Capillary Refill, Non Tender, No Calf Tenderness, No Pedal Edema Neurologic/Psychiatric: Alert, Oriented x3, Other (anxious/paranoid) Skin: Normal Color, Warm/Dry Lymphatic: No Adenopathy (cervical or supraclavicular) Results Lab Laboratory Tests 02/06/21 05:15: Vancomycin Level Trough 5.0L Microbiology 02/02/21 MRSA Screen - Final, Complete MRSA not isolated 02/02/21 Blood Culture - Preliminary, Resulted No growth 02/02/21 Urine Culture - Final, Complete NO GROWTH Assessment/Plan Assessment/Plan Assessment/Plan Assessment: S/P Baudilio's and extended right hemicolectomy performed 02/03 leukocytosis- resolved at 9.9 on 02/05, down from 16.0 on 02/04- no labs for 02/06 anemia- Hgb of 10.1 on 02/05, downtrending from 11.3 on 02/04 wound vac on midline incision containing minimal dried blood- wound appeared clean and dry INDU drain on right side containing 50ml of bloody serosanguinous fluid colostomy on left contains fecal matter and is viable Plan: increase diet to regular diet Lovenox for dvt prophylaxis- patient refusal continue abx- move to oral oral pain medication as needed discontinue IV fluids encourage IS use encourage ambulation Wound care LANCE BELTRE DO 02/06/21 1331: Subjective Time Seen by a Provider: 11:32 Subjective/Events-last exam Pt seen and examined, states he is doing ok. Nursing states he is anxious. He is not ambulating much and wants to stop IV fluids and Lovenox. Review of Systems Pulmonary: No Dyspnea, No Cough Cardiovascular: No: Chest Pain, Palpitations Gastrointestinal: Abdominal Pain (incisional ), Other (colostomy in place); No: Nausea, Vomiting Objective Exam General Appearance: Anxious, Chronically ill Respiratory: Lungs Clear, Normal Breath Sounds, No Accessory Muscle Use, No Respiratory Distress Cardiovascular: Regular Rate, Rhythm, No Murmur Gastrointestinal: soft, tenderness (incisional to palpation- minimal), other (Ostomy located in LLQ viable with fecal material in bag, INDU drain located on R side 50 ml of bloody serosanguinous fluid, midline wound with wound vac co ntaining minimal dried blood) Assessment/Plan Assessment/Plan Assessment/Plan S/P Baudilio's and extended right hemicolectomy performed 02/03 Anemia Plan: increase diet to regular diet, Lovenox for dvt prophylaxis- patient refused, as long as he walks this will be OK continue abx- pt agrees to IV Zosyn, oral pain medication as needed, Heplok IV fluids, encourage IS use, encourage ambulation Wound care plan to change VAC on Friday, pt has no income and therefore cannot get home wound VAC. Will assess wound VAC on , take down and then determine if we can send pt home without it. Supervisory-Addendum Brief Verification & Attestation Participated in pt care: history, MDM, physical Personally performed: exam, history, MDM, supervision of care Care discussed with: Medical Student Procedures: n/a Verification and Attestation of Medical Student E/M Service A medical student performed and documented this service. I then reviewed and verified all information documented by the medical student and made modifications to such information, when appropriate. I personally performed a physical exam, medical decision making and then discussed any differences between the notes and made revisions as necessary to create one note. Lance Beltre , 02/06/21 , 13:31 KOLBY FRANCO MED STUDENT Feb 06, 2021 07:56 LANCE BELTRE DO Feb 06, 2021 13:31
[2021-02-06] MEDS: ENOXAPARIN 40 MG/0.4 ML (LOVENOX) SYR SC SCH ×2 (11:31→12:00)
[2021-02-06] MEDS: PIPERACILLIN/TAZO 4.5 GM/NS 100 ML IV SCH ×4 (12:53→20:07)
--- NOTE | 2021-02-06 14:35 | Physical Therapy Evaluation ---
PT Evaluation-General Medical Diagnosis Admission Date Feb 02, 2021 at 14:53 Medical Diagnosis: Intra-abdominal abscess Onset Date: Feb 05, 2021 Therapy Diagnosis Therapy Diagnosis: Gait deficit, strength deficit Precautions Precautions/Isolations: Contact Isolation, Fall Prevention Weight Bear Status Right Lower Extremity: Right Weight Bearing/Tolerated Left Lower Extremity: Left Weight Bearing/Tolerated Referral Physician: Dr. Moreno Reason for Referral: Evaluation/Treatment Medical History Pertinent Medical History: Smoking Social History Home: Patient reports he lives in an old bus. Current Living Status: Alone Entry Into Home: Stairs With Railing PT Steps Into Home: 3 Prior Prior Level of Function SCALE: Activities may be completed with or without assistive devices. 1-Gjgtavixia-fadflkq completes the activity by him/herself with no assistance from a helper. 5-Set-up or Clean-up Assistance-helper sets up or cleans up; patient completes activity. [place] assists only prior to or following the activity. 4-Supervision or Touching Assistance-helper provides verbal cues and/or touching/steadying and/or contact guard assistance as patient completes activity. Assistance may be provided throughout the activity or intermittently. 3-Partial/Moderate Assistance-helper does LESS THAN HALF the effort. [place] lifts, holds or supports trunk or limbs, but provides less than half the effort. 2-Substantial/Maximal Assistance-helper does MORE THAN HALF the effort. [place] lifts or holds trunk or limbs and provides more than half the effort. 2-Fwsdgsyjv-xcvmbv does ALL the effort. Patient does none of the effort to complete the activity. Or, the assistance of 2 or more helpers is required for the patient to complete the activity. If activity was not attempted, code reason: 7-Patient Refused. 9-Not Applicable-not attempted and the patient did not perform the activity before the current illness, exacerbation or injury. 10-Not Attempted due to Environmental Limitations-(lack of equipment, weather restraints, etc.). 88-Not Attempted due to Medical Conditions or Safety Concerns. Bed Mobility: 6 Transfers (B,C,W/C): 6 Gait: 6 Stairs: 6 Indoor Mobility (Ambulation): Independent Stairs: Independent Prior Device Use: Cane prn PT Evaluation-Current Subjective Patient reports 6/10 pain currently in his abdomen. Patient sitting in chair upon PT arrival, agreeable to treatment. Objective Patient Orientation: Person, Place, Time, Situation ROM/Strength ROM Lower Extremities WFLs to AROM all planes bilaterally. Strength Lower Extremities 5/5 bilaterally all hip, knee, and ankle joints. Sensory Vision: Functional Hearing: Functional Sensation Right Lower Extremit: Intact Sensation Left Lower Extremity: Intact Transfers Roll Left to Right (QC): 3 Sit to Lying (QC): 3 Lying to Sitting/Side of Bed(Q: 3 Sit to Stand (QC): 4 Chair/Map-xa-Vodox Xfer(QC): 4 Toilet Transfer (QC): 4 Patient performed bed mobility prior to PT, with nursing. Gait Does the Patient Walk?: Yes Mode of Locomotion: Walk Anticipated Mode of Locomotion: Walk Walk 10 feet (QC): 4 Walk 50 ft with 2 Turns(QC): 4 Distance: 120 feet Gait Assistive Device: FWW Balance Sitting Static: Normal Sitting Dynamic: Normal Standing Static: Good Standing Dynamic: Good Assessment/Needs Patient tolerated treatment well. Reports he ambulated ~ 120 feet with FWW with JUNIOR ARCHITECT prior to PT arrival. Patient performs all observed transfers with SBA. Patient performs LE therapeutic exercise of AP, LAQ, hamstring curls, hiop abduction, hip adduction, marching x 20 each LE. Patient in chair post treatment with all needs met, nursing notified, call light in hand. Rehab Potential: Good PT Sleep Manager Goals [facility] Goals PT Sleep Manager Goals Time Frame: Feb 23, 2021 Roll Left & Right (QC): 6 Sit to Lying (QC): 6 Lying-Sitting on Side/Bed(QC): 6 Sit to Stand (QC): 6 Chair/Fuw-yg-Uskmy Xfer(QC): 6 Toilet Transfer (QC): 6 Does the Patient Walk: Yes Walk 10 feet (QC): 6 Walk 50ft with 2 Turns (QC): 6 Walk 150 ft (QC): 6 1 Step (curb) (QC): 4 4 Steps (QC): 4 12 Steps (QC): 4 PT Plan Problem List Problem List: Activity Tolerance, Functional Strength, Safety, Balance, Gait, Transfer, Bed Mobility, ROM Treatment/Plan Treatment Plan: Continue Plan of Care Treatment Plan: Bed Mobility, Education, Functional Activity [place], Functional Strength, Group Therapy, Gait, Safety, Therapeutic Exercise, Transfers Treatment Duration: Feb 23, 2021 Frequency: 6 times per week Estimated Hrs Per Day: .25 hour per day Patient and/or Family Agrees t: Yes Safety Risks/Education Patient Education: Gait Training, Transfer Techniques Teaching Recipient: Patient Teaching Methods: Demonstration, Discussion Response to Teaching: Verbalize Understanding, Return Demonstration Discharge Recommendations Target Placement Home Time/GCodes Time In: 1400 Time Out: 1430 Total Billed Treatment Time: 30 Total Billed Treatment Visit, mimi Tuttle JOHN A PT Feb 06, 2021 14:35
[2021-02-07] VITALS: BP 146/77
[2021-02-07 04:40] VITALS: BP 139/76
[2021-02-07] MEDS: PIPERACILLIN/TAZO 4.5 GM/NS 100 ML IV SCH ×4 (05:23→13:08)
[2021-02-07] MEDS: fentaNYL INJ 100 MCG/2 ML AMP IV PRN ×3 (05:34→18:14)
[2021-02-07] MEDS: VANCOMYCIN 125 MG CAPSULE PO SCH ×3 (05:49→17:31)
[2021-02-07 07:27] VITALS: BP 127/79
--- NOTE | 2021-02-07 07:30 | Progress Note - Surgery ---
KOLBY FRANCO MED STUDENT 02/07/21 0730: Subjective Date Seen by a Provider: Feb 07, 2021 Time Seen by a Provider: 07:00 Subjective/Events-last exam This is Shantanu causey 60 yo with S/P Baudilio's and extended right hemicolectomy. He was laying in bed comfortable. Pt was calm, cooperative, and engaged during questioning this morning. He stated that his abdominal pain was at a 1/10. He is on a regular diet and eating well without issue. Frequency of urination has decreased after IV fluids were discontinued. Only concern was pain on the back o f his right hand where IV port was previously located. Review of Systems General: No Chills, No Night Sweats, No Fatigue; Appetite (increased- pt reports eating well) Pulmonary: No Dyspnea, No Cough, No Pleuritic Chest Pain Cardiovascular: No: Chest Pain, Palpitations, Edema Gastrointestinal: Abdominal Pain (minimal around incision- 1/10), Other (Ostomy located in LLQ viable with fecal material in bag, INDU drain located on R side 75ml of bloody serosanguinous fluid, midline wound with wound vac containing minimal dried blood); No: Nausea, Vomiting, Diarrhea, Constipation Genitourinary: No Dysuria; Frequency (decreased frequency after IV fliuds stopped); No Hematuria Neurological: No: Weakness, Confusion Focused Exam Time of Focused Exam: 06:45 Respiratory: Chest Non Tender, Lungs Clear, Normal Breath Sounds, No Accessory Muscle Use, No Respiratory Distress Cardiovascular: Regular Rate, Rhythm, No Edema, No Gallop, No Murmur, Normal Peripheral Pulses Skin: normal color, warm/dry, other Objective Exam Vital Signs Date Time Temp Pulse Resp B/P (MAP) Pulse Ox O2 Delivery O2 Flow Rate FiO2 02/07/21 04:40 37.0 72 20 139/76 (97) 94 Room Air 0.00 02/07/21 01:00 72 02/07/21 00:00 36.5 75 18 146/77 (100) 95 Room Air 02/06/21 20:37 36.6 78 18 144/91 (108) 96 Room Air 02/06/21 20:00 95 Room Air 0.00 02/06/21 19:00 72 02/06/21 16:00 36.1 76 18 121/73 (89) 96 Room Air 02/06/21 13:00 81 12/14/21 11:44 36.8 69 20 131/72 (91) 95 Room Air 02/06/21 08:01 36.8 76 22 129/70 (89) 95 Room Air 02/06/21 08:00 Room Air I & O 02/07/21 07:00 Intake Total 3531 ml Output Total 4830 ml Balance -1299 ml Capillary Refill : Less Than 3 Seconds General Appearance: No Apparent Distress, Chronically ill HEENT: PERRL/EOMI, Pharynx Normal Neck: Normal Inspection, Non Tender, Supple Respiratory: Chest Non Tender, Lungs Clear, Normal Breath Sounds, No Accessory Muscle Use, No Respiratory Distress Cardiovascular: Regular Rate, Rhythm, No Edema, No Gallop, No Murmur, Normal Peripheral Pulses Peripheral Pulses: 2+ Radial Pulses (R), 2+ Radial Pulses (L) Gastrointestinal: soft, tenderness (incisional to palpation- minimal), other (Ostomy located in LLQ viable with fecal material in bag, INDU drain located on R side 75ml of bloody serosanguinous fluid, midline wound with wound vac containing minimal dried blood) Extremity: Normal Capillary Refill, Normal Inspection, No Calf Tenderness, No Pedal Edema, Other (pain in dorsal right hand) Neurologic/Psychiatric: Alert, Oriented x3, Normal Mood/Affect Skin: Normal Color, Warm/Dry Lymphatic: No Adenopathy (cervical or supraclavicular) Results Lab Microbiology 02/02/21 MRSA Screen - Final, Complete MRSA not isolated 02/02/21 Blood Culture - Preliminary, Resulted No growth 02/02/21 Urine Culture - Final, Complete NO GROWTH Assessment/Plan Assessment/Plan Assessment/Plan Assessment: S/P Baudilio's and extended right hemicolectomy performed 02/03 right dorsal hand pain- most likely from previous IV port Ostomy located in LLQ viable with fecal material in bag INDU drain located on R side 75ml of bloody serosanguinous fluid midline wound with wound vac containing minimal dried blood no new labs/imaging Plan: continue egular diet Lovenox for dvt prophylaxis- patient refused, as long as he walks this will be OK continue abx- pt agrees to IV Zosyn oral pain medication as needed Heplok IV fluid encourage IS use encourage ambulation continue PT/OT Wound care plan to change VAC on Friday, pt has no income and therefore cannot get home wound VAC. Will assess wound VAC on , take down and then determine if we can send pt home without it. LANCE MORENO DO 02/07/21 1415: Subjective Time Seen by a Provider: 13:19 Subjective/Events-last exam Pt seen and examined, denies pain and is doing well. Review of Systems General: No Chills, No Night Sweats Pulmonary: No Dyspnea, No Cough Cardiovascular: No: Chest Pain, Palpitations Gastrointestinal: Abdominal Pain (minimal around incision- 03/05), Other (Ostomy located in LLQ viable with fecal material in bag, INDU drain located on R side 75ml of bloody serosanguinous fluid, midline wound with wound vac containing minimal dried blood); No: Nausea, Vomiting, Diarrhea, Constipation Genitourinary: No Dysuria; Frequency (decreased frequency after IV fliuds stopped); No Hematuria Assessment/Plan Assessment/Plan Assessment/Plan S/P Baudilio's and extended right hemicolectomy performed 02/03 right dorsal hand pain- most likely from previous IV port Ostomy located in LLQ viable with fecal material in bag INDU drain located on R side 75ml of bloody serosanguinous fluid midline wound with wound vac containing minimal dried blood no new labs/imaging Plan: continue regular diet Lovenox for dvt prophylaxis- patient refused, as long as he walks this will be OK continue abx- pt agrees to IV Zosyn oral pain medication as needed Heplok IV fluid encourage IS use encourage ambulation continue PT/OT Plan to take VAC off and assess wound, take down and then determine if we can send pt home without it. Supervisory-Addendum Brief Verification & Attestation Participated in pt care: history, MDM, physical Personally performed: exam, history, MDM, supervision of care Care discussed with: Medical Student Procedures: n/a Verification and Attestation of Medical Student E/M Service A medical student performed and documented this service. I then reviewed and verified all information documented by the medical student and made modifications to such information, when appropriate. I personally performed a physical exam, medical decision making and then discussed any differences between the notes and made revisions as necessary to create one note. Lance Moreno , 02/07/21 , 14:15 KOLBY FRANCO MED STUDENT Feb 07, 2021 07:30 LANCE MORENO DO Feb 07, 2021 14:15
--- NOTE | 2021-02-07 10:39 | Physical Therapy Daily Note ---
PT Daily Note-Current Subjective Pt laying in bed upon arrival and initial states that he doesn't want to do therapy until her has had his shot for pain. CAREER DEVELOPMENT COORDINATOR/TEACHER asks nurse and nurse convinces pt to do PT first and then she will give him the shot afterwards. Pt then agrees to PT. Pain Numeric Pain Scale: 4 Location Body Site: Abdomen Comment: 06/03 prior to tx and 11/03 following tx Mental Status Patient Orientation: Normal For Age Wound Vac Transfers SCALE: Activities may be completed with or without assistive devices. 3-Tnbgqpjama-olhguzp completes the activity by him/herself with no assistance from a helper. 5-Set-up or Clean-up Assistance-helper sets up or cleans up; patient completes activity. [place] assists only prior to or following the activity. 4-Supervision or Touching Assistance-helper provides verbal cues and/or touching/steadying and/or contact guard assistance as patient completes activity. Assistance may be provided throughout the activity or intermittently. 3-Partial/Moderate Assistance-helper does LESS THAN HALF the effort. [place] lifts, holds or supports trunk or limbs, but provides less than half the effort. 2-Substantial/Maximal Assistance-helper does MORE THAN HALF the effort. [place] lifts or holds trunk or limbs and provides more than half the effort. 9-Ueljfqwgo-oknpqx does ALL the effort. Patient does none of the effort to complete the activity. Or, the assistance of 2 or more helpers is required for the patient to complete the activity. If activity was not attempted, code reason: 7-Patient Refused. 9-Not Applicable-not attempted and the patient did not perform the activity before the current illness, exacerbation or injury. 10-Not Attempted due to Environmental Limitations-(lack of equipment, weather restraints, etc.). 88-Not Attempted due to Medical Conditions or Safety Concerns. Roll Left & Right (QC): 4 Lying to Sitting/Side of Bed(Q: 3 Sit to Stand (QC): 5 Weight Bearing Right Lower Extremity: Right Weight Bearing/Tolerated Left Lower Extremity: Left Weight Bearing/Tolerated Gait Training Does the Patient Walk?: Yes Distance: 200' Walk 10 feet (QC): 5 Walk 50 ft with 2 Turns(QC): 4 Walk 150 ft (QC): 4 Gait Assistive Device: FWW Pt starts groaning w/ pain the last 30' d/t abdomen pain Exercises Seated Therapy Exercises: Ankle pumps, Long arc quads, Hip flexion, Hip abd/add Seated Reps: 15 Standing: Sit to Stand Standing Reps: 3 Treatments Pt requires Ryan/modA to in order to go from lying to sitting d/t abdomen pain. Pt then uses urinal to go to BR. Pt then performs sit to stand w/ SBA. Pt then amb 200' into jacobs and then requests to sit in recliner so pt TFs to recliner. Pt then performs all seated exs. All needs met and call light nearby as PT departs. Assessment Current Status: Good Progress Pt requires cues for hand and foot placement while performing TFs. Requires cues for body position within FWW and cues for energy conservation. PT Group Home Goals Color Paste Mixing Supervisor Goals PT Group Home Goals Time Frame: Feb 23, 2021 Roll Left & Right (QC): 6 Sit to Lying (QC): 6 Lying-Sitting on Side/Bed(QC): 6 Sit to Stand (QC): 6 Chair/Uss-oi-Uqtac Xfer(QC): 6 Toilet Transfer (QC): 6 Does the Patient Walk: Yes Walk 10 feet (QC): 6 Walk 50ft with 2 Turns (QC): 6 Walk 150 ft (QC): 6 1 Step (curb) (QC): 4 4 Steps (QC): 4 12 Steps (QC): 4 PT Plan Problem List Problem List: Activity Tolerance, Safety, Transfer Treatment/Plan Treatment Plan: Continue Plan of Care Treatment Plan: Bed Mobility, Education, Functional Activity Chacha, Functional Strength, Group Therapy, Gait, Safety, Therapeutic Exercise, Transfers Treatment Duration: Feb 23, 2021 Frequency: 6 times per week Estimated Hrs Per Day: .25 hour per day Patient and/or Family Agrees t: Yes Safety Risks/Education Patient Education: Transfer Techniques, Correct Positioning, Safety Issues Teaching Recipient: Patient Teaching Methods: Discussion Response to Teaching: Return Demonstration Time/GCodes Time In: 944 Time Out: 1008 Total Billed Treatment Time: 24 Total Billed Treatment 1, GT (15'), Ex (9') AUNDREA GAUTAM CAREER DEVELOPMENT COORDINATOR/TEACHER Feb 07, 2021 10:39
[2021-02-07 11:16] VITALS: BP 121/73
[2021-02-07] MEDS: ENOXAPARIN 40 MG/0.4 ML (LOVENOX) SYR SC SCH (13:08)
[2021-02-07 16:00] VITALS: BP 119/80
[2021-02-07 20:00] VITALS: BP 141/72
[2021-02-08] VITALS (7 sets, daily range): BP systolic 125–134; BP diastolic 75–88
[2021-02-08] MEDS: VANCOMYCIN 125 MG CAPSULE PO SCH ×4 (00:39→18:23)
[2021-02-08] MEDS: fentaNYL INJ 100 MCG/2 ML AMP IV PRN (04:05)
--- NOTE | 2021-02-08 07:03 | Progress Note - Surgery ---
YOSI ARTEAGA 02/08/21 0703: Subjective Date Seen by a Provider: Feb 08, 2021 Time Seen by a Provider: 06:05 Subjective/Events-last exam Pt states that he is doing well. His pain is under control at the moment. Tolerating normal diet well. State that his INDU drains are still collecting fluid. Denies seeing any flood or fecal material in the drains. He is passing stool into his colostomy bag. Denies having any other concerns. Has been getting up and walking. Review of Systems General: No Chills, No Night Sweats HEENT: No Head Aches, No Visual Changes Pulmonary: No Dyspnea, No Cough Cardiovascular: No: Chest Pain, Palpitations Gastrointestinal: Abdominal Pain; No: Nausea, Vomiting Musculoskeletal: No: shoulder pain, back pain, leg pain Neurological: No: Weakness, Numbness Focused Exam Time of Focused Exam: 06:45 Objective Exam Vital Signs Date Time Temp Pulse Resp B/P (MAP) Pulse Ox O2 Delivery O2 Flow Rate FiO2 02/08/21 04:42 35.5 72 18 134/75 (94) 96 Room Air 02/08/21 01:00 70 02/08/21 00:16 36.2 77 18 125/75 (92) 95 Room Air 02/07/21 20:00 36.2 81 20 141/72 (95) 95 Room Air 02/07/21 19:30 Room Air 02/07/21 19:00 83 02/07/21 16:00 36.1 75 18 119/80 (93) 96 Room Air 02/07/21 13:00 71 02/07/21 11:16 35.2 77 18 121/73 (89) 94 Room Air 02/07/21 08:00 Room Air 02/07/21 07:27 35.5 62 20 127/79 (95) 95 Room Air 02/07/21 07:00 68 I & O 02/08/21 07:00 Intake Total 1860 ml Output Total 3855 ml Balance -1995 ml Capillary Refill : Less Than 3 Seconds General Appearance: No Apparent Distress, Chronically ill HEENT: PERRL/EOMI; No Photophobia Neck: Non Tender, Supple Respiratory: Lungs Clear, Normal Breath Sounds, No Accessory Muscle Use, No Respiratory Distress Cardiovascular: Regular Rate, Rhythm, No Murmur, Normal Peripheral Pulses Gastrointestinal: soft, tenderness (mild tenderness over incision site), other (colostomy located in LLQ viable with fecal material in bag, INDU drain located on R side w/ serosanguinous fluid in drain, midline wound with wound vac containing dried blood) Extremity: Normal Capillary Refill, No Calf Tenderness, No Pedal Edema Neurologic/Psychiatric: Alert, Oriented x3, Normal Mood/Affect Skin: Normal Color, Warm/Dry Lymphatic: No Adenopathy (cervical ) Results Lab Microbiology 02/02/21 MRSA Screen - Final, Complete MRSA not isolated 02/02/21 Blood Culture - Final, Complete No growth 02/02/21 Urine Culture - Final, Complete NO GROWTH Assessment/Plan Assessment/Plan Assessment/Plan Assessment S/P Baudilio's and extended right hemicolectomy performed 02/03 Colostomy located in LLQ, viable INDU drain located on R side midline wound with wound vac Plan: Continue to monitor colostomy output and for change of appearance Continue to monitor INDU drains and wound vac. Plan to take VAC off today and assess wound, take down, and then determine if we can send pt home without it Continue antibiotics Continue oral pain medication as needed Encourage IS use and ambulation LANCE MORENO DO 02/08/21 0953: Subjective Time Seen by a Provider: 09:09 Subjective/Events-last exam Pt seen and examined, is complaining of some abd pain. He ate all of his breakfast though. Review of Systems General: No Chills, No Night Sweats Pulmonary: No Dyspnea, No Cough Cardiovascular: No: Chest Pain, Palpitations Gastrointestinal: Abdominal Pain; No: Nausea, Vomiting Objective Exam General Appearance: No Apparent Distress HEENT: PERRL/EOMI Respiratory: Lungs Clear, Normal Breath Sounds, No Accessory Muscle Use, No Respiratory Distress Cardiovascular: Regular Rate, Rhythm, No Murmur Gastrointestinal: soft, tenderness (mild tenderness over incision site), other (colostomy located in LLQ viable with fecal material in bag, INDU drain located on R side w/ serosanguinous fluid in drain, midline wound took wound vac down and saw good tisue) Assessment/Plan Assessment/Plan Assessment/Plan S/P Baudilio's and extended right hemicolectomy performed 02/03 Plan: Midline wound looks good, will switch to wet to dry dressing changes and send pt home. Continue oral pain medication as needed, Encourage IS use and ambulation Supervisory-Addendum Brief Verification & Attestation Participated in pt care: history, MDM, physical Personally performed: exam, history, MDM, supervision of care Care discussed with: Medical Student Procedures: n/a Verification and Attestation of Medical Student E/M Service A medical student performed and documented this service. I then reviewed and verified all information documented by the medical student and made modifications to such information, when appropriate. I personally performed a physical exam, medical decision making and then discussed any differences between the notes and made revisions as necessary to create one note. Lance Moreno , 02/08/21 , 09:53 YOSI ARTEAGA Feb 08, 2021 07:03 LANCE MORENO DO Feb 08, 2021 09:53
[2021-02-08] MEDS ORDERED: ACHYD1T PO (09:56)
--- NOTE | 2021-02-08 09:59 | Discharge Inst-Surgical ---
Discharge Inst-Surgical Depart Medication/Instructions New, Converted or Re-Newed RX: Transmitted to Pharmacy Patient Instructions Follow up Appt: Make appointment for 1 week. [phone] Instructions: No lifting greater than 20 pounds. No strenuous activity. May shower in 24 hours, no tub bath or soaking. Use incentive spirometer at home as directed. No Smoking Skin/Wound Care: May remove bandages in am. You need to have dressing changed daily and Ostomy teaching. Symptoms to Report: Appetite Changes, Extremity Discoloration, Numbness/Tingling, Swelling Increased, Bleeding Excessive, Eyesight Changes, Pain Increased, Urine Color Change, Constipation(Persistent), Fever over 101 degree F, Pain/Pressure in chest, Urinating Difficulty, Cough Up/Vomit Blood, Heart Beat Irreg/Pounding, Pain/Pressure in jaw, Cramps in feet or legs, Lightheadedness, Pain/Pressure in shoulder, Diarrhea(Persistent), Memory Changes Suddenly, Questions/Concerns, Weight gain consecutive days, Dizziness/Fainting, Nausea/Vomiting, Shortness of Breath, Weight gain over 2 pounds If questions or concerns contact your physician Or seek help at emergency department. Activity Activity as Tolerated: Yes Activity Instructions: Avoid Stress to Incision Driving Instructions: No Driving/Refer to Dr. Casey Discharge Diet: No Restrictions Diet After 24 Hours: Clear Liquid if Nauseous If Any Problems/Questions/Issu: Contact Your Physician, Go to Emergency Room Skin/Wound Care Infection Signs and Symptoms: Increased Redness, Foul Odor of Wound, Increased Drainage, Skin Itchy or Has a Rash, Increased Swelling, Temperature Above 101 F Wound Care Comment: wet to dry dressing changes daily Bathing Instructions: LANCE Rivera DO Feb 08, 2021 09:59
--- NOTE | 2021-02-08 11:39 | Physical Therapy Daily Note ---
PT Daily Note-Current Subjective Pt is in bed, preparing for discharge to his sister's home. Pain Numeric Pain Scale: 0-No Pain Location: No Pain Reported Mental Status Patient Orientation: Person, Place, Time, Situation Attachments: Colostomy/Ileostomy, Drains Transfers SCALE: Activities may be completed with or without assistive devices. 6-Aechftbsax-luifzze completes the activity by him/herself with no assistance from a helper. 5-Set-up or Clean-up Assistance-helper sets up or cleans up; patient completes activity. [place] assists only prior to or following the activity. 4-Supervision or Touching Assistance-helper provides verbal cues and/or touching/steadying and/or contact guard assistance as patient completes activity. Assistance may be provided throughout the activity or intermittently. 3-Partial/Moderate Assistance-helper does LESS THAN HALF the effort. [place] lifts, holds or supports trunk or limbs, but provides less than half the effort. 2-Substantial/Maximal Assistance-helper does MORE THAN HALF the effort. [place] lifts or holds trunk or limbs and provides more than half the effort. 2-Yfannuugg-taqxqp does ALL the effort. Patient does none of the effort to complete the activity. Or, the assistance of 2 or more helpers is required for the patient to complete the activity. If activity was not attempted, code reason: 7-Patient Refused. 9-Not Applicable-not attempted and the patient did not perform the activity before the current illness, exacerbation or injury. 10-Not Attempted due to Environmental Limitations-(lack of equipment, weather restraints, etc.). 88-Not Attempted due to Medical Conditions or Safety Concerns. Roll Left & Right (QC): 6 Sit to Lying (QC): 6 Lying to Sitting/Side of Bed(Q: 6 Sit to Stand (QC): 6 Chair/Mhv-yz-Mxrnb Xfer(QC): 6 Toilet Transfer (QC): 6 Weight Bearing Right Lower Extremity: Right Weight Bearing/Tolerated Left Lower Extremity: Left Weight Bearing/Tolerated Gait Training Does the Patient Walk?: Yes Distance: 400ft Walk 10 feet (QC): 6 Walk 50 ft with 2 Turns(QC): 6 Walk 150 ft (QC): 6 Walking 10ft/uneven surface-QC: 6 Gait Persons Needed: 1 Gait Assistive Device: None Wheelchair Training Does the Pt Use a Wheelchair?: No Stair Training Stair Training: Handrails/: 1 handrail #of Steps: 12 1 Step (curb) (QC): 6 4 Steps (QC): 6 12 Steps (QC): 6 Stairs: Pattern: Reciprocal Assessment Current Status: Excellent Progress Pt is able to ambulate (I) in the hallway, bathroom, and in the stairwell. Good safety with ambulation and stairs. PT Residential Goals Fine Arts Teacher Goals PT Residential Goals Time Frame: Feb 23, 2021 Roll Left & Right (QC): 6 Sit to Lying (QC): 6 Lying-Sitting on Side/Bed(QC): 6 Sit to Stand (QC): 6 Chair/Hdv-gb-Yfumr Xfer(QC): 6 Toilet Transfer (QC): 6 Does the Patient Walk: Yes Walk 10 feet (QC): 6 Walk 50ft with 2 Turns (QC): 6 Walk 150 ft (QC): 6 1 Step (curb) (QC): 4 4 Steps (QC): 4 12 Steps (QC): 4 PT Plan Treatment/Plan Treatment Plan: Continue Plan of Care Treatment Plan: Bed Mobility, Education, Functional Activity Chacha, Functional Strength, Group Therapy, Gait, Safety, Therapeutic Exercise, Transfers Treatment Duration: Feb 23, 2021 Frequency: 6 times per week Estimated Hrs Per Day: .25 hour per day Patient and/or Family Agrees t: Yes Discharge Recommendations Plan Discharge to his sister's home. Equpiment Recommendations-D/C: None Time/GCodes Time In: 1115 Time Out: 1130 Total Billed Treatment Time: 15 Total Billed Treatment 1, gt 15 CHRISTY MUNOZ PT Feb 08, 2021 11:39
[2021-02-08] MEDS: ENOXAPARIN 40 MG/0.4 ML (LOVENOX) SYR SC SCH (12:12)
[2021-02-09] MEDS: VANCOMYCIN 125 MG CAPSULE PO SCH ×3 (00:18→11:55)
[2021-02-09 04:01] VITALS: BP 122/81
[2021-02-09 08:00] VITALS: BP 125/82
--- NOTE | 2021-02-09 10:05 | Physical Therapy Daily Note ---
PT Daily Note-Current Subjective Pt in bed upon arrival and agrees to PT. Reports he is ready to get out of better and that he is getting better everyday. Says he doesn't know where he'll be going now because his sister will no longer let him go to her house. Pain Numeric Pain Scale: 2 Location Body Site: Abdomen Mental Status Patient Orientation: Normal For Age Attachments: Colostomy/Ileostomy Transfers SCALE: Activities may be completed with or without assistive devices. 7-Uozivcuihr-odcyjol completes the activity by him/herself with no assistance from a helper. 5-Set-up or Clean-up Assistance-helper sets up or cleans up; patient completes activity. [place] assists only prior to or following the activity. 4-Supervision or Touching Assistance-helper provides verbal cues and/or touching/steadying and/or contact guard assistance as patient completes activity. Assistance may be provided throughout the activity or intermittently. 3-Partial/Moderate Assistance-helper does LESS THAN HALF the effort. [place] lifts, holds or supports trunk or limbs, but provides less than half the effort. 2-Substantial/Maximal Assistance-helper does MORE THAN HALF the effort. [place] lifts or holds trunk or limbs and provides more than half the effort. 6-Pzhbnbyhg-pqcwpu does ALL the effort. Patient does none of the effort to complete the activity. Or, the assistance of 2 or more helpers is required for the patient to complete the activity. If activity was not attempted, code reason: 7-Patient Refused. 9-Not Applicable-not attempted and the patient did not perform the activity before the current illness, exacerbation or injury. 10-Not Attempted due to Environmental Limitations-(lack of equipment, weather restraints, etc.). 88-Not Attempted due to Medical Conditions or Safety Concerns. Roll Left & Right (QC): 6 Sit to Lying (QC): 6 Lying to Sitting/Side of Bed(Q: 6 Sit to Stand (QC): 6 Chair/Xrz-ki-Mknwo Xfer(QC): 6 Weight Bearing Right Lower Extremity: Right Weight Bearing/Tolerated Left Lower Extremity: Left Weight Bearing/Tolerated Gait Training Does the Patient Walk?: Yes Distance: 500' Walk 10 feet (QC): 6 Walk 50 ft with 2 Turns(QC): 6 Walk 150 ft (QC): 6 Gait Persons Needed: 1 Pt does not require FWW and able to amb (I) w/ SBA for safety Stair Training Stair Training: Handrails/: 2 handrails #of Steps: 8 1 Step (curb) (QC): 6 4 Steps (QC): 6 Stairs: Pattern: Reciprocal Pt has reciprocal gait pattern when ascending stairs and step to while descending stairs Exercises Standing: Sit to Stand Standing Reps: 3 Treatments Pt ambulates into jacobs and to stairs and does stairs training w/ CGA for safety then amb back to room 500' TFs to recliner upon patient request. Call light nearby and all needs met as PT departs. Assessment Current Status: Good Progress Pt requires cues for safety and energy conservation during ambulation. Requires cues for hand and foot placement while ascending and descending stairs. PT Nursing Home Goals [employer] Goals PT Nursing Home Goals Time Frame: Feb 23, 2021 Roll Left & Right (QC): 6 Sit to Lying (QC): 6 Lying-Sitting on Side/Bed(QC): 6 Sit to Stand (QC): 6 Chair/Fgq-jq-Pfeiz Xfer(QC): 6 Toilet Transfer (QC): 6 Does the Patient Walk: Yes Walk 10 feet (QC): 6 Walk 50ft with 2 Turns (QC): 6 Walk 150 ft (QC): 6 1 Step (curb) (QC): 4 4 Steps (QC): 4 12 Steps (QC): 4 PT Plan Problem List Problem List: Activity Tolerance, Safety Treatment/Plan Treatment Plan: Continue Plan of Care Treatment Plan: Bed Mobility, Education, Functional Activity Chacha, Functional Strength, Group Therapy, Gait, Safety, Therapeutic Exercise, Transfers Treatment Duration: Feb 23, 2021 Frequency: 6 times per week Estimated Hrs Per Day: .25 hour per day Patient and/or Family Agrees t: Yes Safety Risks/Education Patient Education: Correct Positioning Teaching Recipient: Patient Teaching Methods: Discussion Response to Teaching: Return Demonstration Time/GCodes Time In: 819 Time Out: 833 Total Billed Treatment Time: 14 Total Billed Treatment 1, GT AUNDREA GAUTAM PTA Feb 09, 2021 10:05
[2021-02-09] MEDS: ENOXAPARIN 40 MG/0.4 ML (LOVENOX) SYR SC SCH (12:15)
== END 2021-02-09 14:00 | disposition home or self-care (01) | DRG 329 ==
LOC: EDUNIT# 13:10 → ER 13:11 → ICU 14:53 → 4TH 02-04 14:51
PROVIDERS: ADMIT Surgery; ATTEND Surgery
PROC: 0DBN0ZZ Excision of Sigmoid Colon, Open Approach (ICD-10-PCS; 2021-02-03)
PROC: 0D1M0Z4 Bypass Descending Colon to Cutaneous, Open Approach (ICD-10-PCS; 2021-02-03)
PROC: 0DTF0ZZ Resection of Right Large Intestine, Open Approach (ICD-10-PCS; principal; 2021-02-03 09:32)
DX: K63.1 Perforation of intestine (nontraumatic) (principal); K65.1 Peritoneal abscess; K55.029 Acute infarction of small intestine, extent unspecified; A04.72 Enterocolitis due to Clostridium difficile, not specified as recurrent; E87.1 Hypo-osmolality and hyponatremia; K52.9 Noninfective gastroenteritis and colitis, unspecified; F17.210 Nicotine dependence, cigarettes, uncomplicated; F17.220 Nicotine dependence, chewing tobacco, uncomplicated; F12.90 Cannabis use, unspecified, uncomplicated; R30.0 Dysuria; J43.9 Emphysema, unspecified; G56.93 Unspecified mononeuropathy of bilateral upper limbs; T14.8XXS Other injury of unspecified body region, sequela; Z89.021 Acquired absence of right finger(s)
CPT/HCPCS: 36415; 71045; 74177; 80048; 80053; 80202; 81000; 83605; 83735; 85007; 85025; 85027; 85610; 85730; 87040; 87081; 87088; 88307; 96374; 96375

== ENCOUNTER 2021-05-23 05:28 | Outpatient (CLI) | payer SELFPAY ==
[~2021-05-23] VITALS: Ht 170.2 cm; Wt 68.2 kg
[~2021-05-23 05:28] MED LIST changes: +IBUP-2473 PO
== END 2021-05-24 14:06 ==
LOC: PREOP 05:28
PROVIDERS: ATTEND Surgery
DX: Z01.818 Encounter for other preprocedural examination (principal)

== ENCOUNTER → 2021-06-04 | Outpatient (CLI) | payer SELFPAY | LOC: PREOP 05:31 | PROVIDERS: ATTEND Surgery | DX: Z01.818 Encounter for other preprocedural examination (principal) ==

== ENCOUNTER 2021-06-06 06:51 | Inpatient (IN) | payer OTHER ==
[~2021-06-06] VITALS: Ht 170.2 cm; Wt 68.2 kg
[2021-06-06] VITALS (12 sets, daily range): BP systolic 94–154; BP diastolic 55–91
[2021-06-06] MEDS: LACTATED RINGERS 1,000 ML IV PRN ×3 (07:20→11:26)
[2021-06-06] MEDS ORDERED: LIDOCAINE PF 2% 5 ML (XYLOCAINE) VIAL ONE (07:57)
[2021-06-06] MEDS ORDERED: MIDAZOLAM 2 MG/2 ML (VERSED) VIAL ONE (07:57)
[2021-06-06] MEDS ORDERED: fentaNYL INJ 100 MCG/2 ML AMP ONE ×2 (07:57→11:37)
[2021-06-06] MEDS ORDERED: SEVOFLURANE (ULTANE) 15 ML INHAL SOLN ONE ×3 (07:57→10:30)
[2021-06-06] MEDS ORDERED: ONDANSETRON 4 MG/2 ML (SDV) Z0FRAN ONE (07:57)
[2021-06-06] MEDS ORDERED: proPOfol 200 MG/20 ML (DIPRIVAN) VIAL IV ONE (07:57)
[2021-06-06] MEDS ORDERED: ROCURONIUM 10 MG/ML 5 ML SYRINGE IV ONE ×2 (07:57→10:18)
[2021-06-06] MEDS ORDERED: LIDOCAINE/EPI 2% 1:100,00 (XYLOCAINE) 20 ML VIAL ONE (08:02)
[2021-06-06] MEDS ORDERED: metroNIDAZOLE 500MG/100ML IVPB 100 ML IV ONE (08:15)
[2021-06-06] MEDS ORDERED: ceFAZolin 2 GM IV Premixed 50 ML IV ONE (08:15)
--- NOTE | 2021-06-06 08:18 | Progress Note-Pre Operative ---
Pre-Operative Progress Note H&P Reviewed The H&P was reviewed, patient examined and no changes noted. Time Seen by Provider: 08:15 Date H&P Reviewed: Jun 06, 2021 Time H&P Reviewed: 08:15 Pre-Operative Diagnosis: Colostomy status plan for takedown and reanastomosis LANCE BELTRE DO Jun 06, 2021 08:18
[2021-06-06] MEDS ORDERED: metroNIDAZOLE 500MG/100ML IVPB 100 ML ONE (08:20)
[2021-06-06] MEDS ORDERED: ceFAZolin 2 GM IV Premixed 50 ML ONE (08:20)
[2021-06-06] MEDS ORDERED: LACTATED RINGERS 1,000 ML IV PRN (08:30)
[2021-06-06] MEDS ORDERED: PHENYLEPHRINE 100 MCG/ML 10 ML (ANESTHESIA) SYR ONE (09:04)
[2021-06-06] MEDS ORDERED: NEOSTIGMINE 3 MG/3 ML VIAL ONE (10:58)
[2021-06-06] MEDS ORDERED: GLYCOPYRROLATE 0.2 MG/ML (ROBINUL) 2 ML VIAL ONE (10:58)
--- NOTE | 2021-06-06 11:02 | Progress Note-Post Operative ---
Post-Operative Progess Note Surgeon (s)/Supervisor [employer] (s) Surgeon LANCE BELTRE DO Supervisor [employer]: Uzma Pre-Operative Diagnosis Colostomy status plan for takedown and reanastomosis Post-Operative Diagnosis same Procedure & Operative Findings Date of Procedure 06/06/21 Procedure Performed/Findings Partial Colon resection with primary colocolotomy and takedown of colostomy Anesthesia Type GET Estimated Blood Loss Estimated blood loss (mL): 50ml Specimens/Packing Specimens Removed portion of colon, anastomotic rings LANCE BELTRE DO Jun 06, 2021 11:02
[2021-06-06] MEDS ORDERED: morphine INJ 10 MG/ML 1ML (SYR OR VIAL) ONE (11:03)
[2021-06-06] MEDS ORDERED: ACETAMINOPHEN 500 MG TAB (TYLENOL) PO SCH (11:15)
[2021-06-06] MEDS ORDERED: ONDANSETRON 4 MG/2 ML (SDV) Z0FRAN IVP PRN ×2 (11:15→11:30)
[2021-06-06] MEDS ORDERED: ROPIVACAINE 5MG/ML 30ML VIAL ONE (11:19)
[2021-06-06] MEDS ORDERED: morphine INJ 10 MG/ML 1ML (SYR OR VIAL) IVP ONE (11:30)
[2021-06-06] MEDS ORDERED: MEPERIDINE (DEMEROL) INJ 50 MG/ML IVP ONE (11:30)
[2021-06-06] MEDS ORDERED: fentaNYL INJ 100 MCG/2 ML AMP IVP ONE (11:30)
[2021-06-06] MEDS: LACTATED RINGERS 1,000 ML IV SCH ×2 (12:50→18:14)
[2021-06-06] MEDS: KETOROLAC 30 MG/ML VIAL IVP SCH ×2 (12:50→18:14)
[2021-06-06] MEDS: morphine INJ 4 MG/ML 1 ML (VIAL/SYRINGE) IVP PRN ×2 (14:10→16:42)
[2021-06-06] MEDS: ceFAZolin 2 GM IV Premixed 50 ML IV SCH (16:38)
[2021-06-06] MEDS: metroNIDAZOLE 500MG/100ML IVPB 100 ML IV SCH ×2 (16:41→23:18)
[2021-06-06] MEDS: ACETAMINOPHEN 500 MG TAB (TYLENOL) PO SCH (21:58)
[2021-06-07] MEDS: ceFAZolin 2 GM IV Premixed 50 ML IV SCH (00:45)
[2021-06-07] MEDS: KETOROLAC 30 MG/ML VIAL IVP SCH ×5 (00:46→23:39)
[2021-06-07] MEDS: morphine INJ 4 MG/ML 1 ML (VIAL/SYRINGE) IVP PRN ×5 (00:54→19:58)
[2021-06-07] MEDS: LACTATED RINGERS 1,000 ML IV SCH ×3 (02:07→12:06)
--- NOTE | 2021-06-07 02:59 | OPERATIVE REPORT ---
DATE OF SERVICE: 06/06/2021 PREOPERATIVE DIAGNOSES: Colostomy status, plan for takedown and reanastomosis. POSTOPERATIVE DIAGNOSES: Colostomy status, plan for takedown and reanastomosis. PROCEDURE: Partial colon resection with primary colocolostomy and takedown of colostomy. SURGEON: Lance Moreno DO FIRE INSPECTOR: Amilcar Gusman DO. ANESTHESIA: General endotracheal tube. SPECIMEN: Portion of colon and anastomotic rings. BLOOD LOSS: Approximately 50 mL. FLUIDS: Per anesthesia. POSTOPERATIVE CONDITION: Stable. INDICATION FOR PROCEDURE: The patient is a 61-year-old male, who has a colostomy wants this taken down and reanastomosed. FINDINGS: The patient had a colostomy takedown and reanastomosis was performed without any difficulty. PROCEDURE NOTE: After informed consent was obtained, the patient was brought to the operating room, placed on the operating table in lithotomy position. He was sterilely prepped and draped in normal fashion. Started by infiltrating the left upper quadrant with local lidocaine. Incision with 11 blade, carried down through the skin and subcutaneous tissue, deepened down to subcutaneous tissue with Bovie electrocautery down to fascia. Fascia was incised with Bovie electrocautery, then bluntly spread the muscle apart, went to the posterior fascia and then the posterior muscle and into the abdomen, placed 11 mm trocar port under direct visualization. Created pneumoperitoneum. Upon entry, noted multiple adhesions in the midline could see the colostomy appeared to be in good shape. Placed a 5 mm port in the left upper quadrant using local lidocaine, 11 blade for stab incision and VersaStep system, all done under direct visualization. I then started taking down the adhesions with a LigaSure as well as some blunt dissection, taking these adhesions down, so we could see and then adhesions down in the midline. I elected to place a hand port in the lower abdomen. Using #10 blade, carried down through the skin and subcutaneous tissue, deepened down to subcutaneous tissue with Bovie electrocautery down to the fascia. Fascia incised and then placed the wound protector and then placed my hand and then carefully started taking down the adhesions of small intestine was stuck down in the pelvis. Once this was freed, patient was placed in Trendelenburg. These then fell out of the way, then able to find the rectal stump. At this point, then made an elliptical incision around the colostomy and then with a #15 blade, carried down through skin and subcutaneous tissue, deepened down to subcutaneous tissue with Bovie electrocautery down to the fascia going around the colostomy, freeing this up, so it was able to be pulled up, then placed a 29 ILS anvil into the colon, used a AJITH to cut off the distal portion of the colon, clamped and fired and transected, passed this off table, then brought the trocar on the anvil through the end of the colon. This was then dropped back into place into the abdomen. I then went down below and dilated with a 25, 28 and then 31 rectal dilator. Then, placed a 29 ILS stapling device into the rectum, opened the trocar through the distal portion and then attached the anvil to the trocar, tightened this down until it was in the green position, held for 30 seconds and then fired the gun, good firing, did turn counterclockwise and then easily removed the stapler. Dr. Gusman held above the anastomosis. I then injected air with a rigid sigmoidoscopy and he had placed some fluid in the pelvis, did not see any air leak and at this point, then allowed the air to escape. At this point, then closed the colostomy incision, closing the fascia with #1 double stranded PDS suture, then closing the midline incision with #1 double stranded PDS suture running from superior portion to inferior portion tying to itself, closing all incisions with lucinda. Area was cleaned and dried, dressings placed. The patient tolerated the procedure. Sponge, instrument and needle count correct at the end of the case. He was transferred to recovery room in stable condition. Dr. Gusman assisted in this case helping to make incisions, close incisions, identify anatomy and hold anatomy out of the way. Job ID: [id number] DocumentID: [id number] Dictated Date: 06/06/2021 23:24:29 Pneumatic Hoist Operator Date: 06/07/2021 02:58:46 Dictated By: LANCE MORENO DO
[2021-06-07 03:38] VITALS: BP 104/52
[2021-06-07] MEDS: ACETAMINOPHEN 500 MG TAB (TYLENOL) PO SCH ×4 (06:15→23:56)
[2021-06-07 08:22] VITALS: BP 115/61
[2021-06-07] MEDS: PANTOPRAZOLE 40 MG (PROTONIX) VIAL IVP SCH (09:15)
--- NOTE | 2021-06-07 10:38 | Progress Note - Surgery ---
NICKI SKINNER 06/07/21 1038: Subjective Date Seen by a Provider: Jun 07, 2021 Time Seen by a Provider: 07:40 Subjective/Events-last exam Patient resting comfortably in bed upon entering the room. States he has some mild discomfort, but that his pain is mainly controlled by his pain medication r egimen. Patient has no major complaints and was excited to be told he can progress to eating "actual food". His incisions look well approximated, clean, and dry. RN states that he has been having some serosenginous leakage from his midline lesion. Review of Systems General: No Chills, No Night Sweats HEENT: Head Aches; No Visual Changes Pulmonary: No Dyspnea, No Cough Cardiovascular: No: Chest Pain, Palpitations Gastrointestinal: Abdominal Pain; No: Nausea, Vomiting Objective Exam Vital Signs Date Time Temp Pulse Resp B/P (MAP) Pulse Ox O2 Delivery O2 Flow Rate FiO2 06/07/21 10:12 Room Air 06/07/21 08:22 36.8 68 18 115/61 (79) 94 Room Air 06/07/21 08:00 Room Air 06/07/21 03:38 36.6 65 16 104/52 (69) 96 Room Air 06/06/21 23:20 36.5 74 16 102/59 (73) 96 Room Air 06/06/21 20:10 Room Air 06/06/21 20:00 36.1 84 18 112/61 (78) 96 Room Air 06/06/21 16:00 36.2 84 18 134/81 (98) 97 Room Air 06/06/21 12:49 36.1 62 16 143/85 (104) 98 Room Air 06/06/21 12:28 Room Air 06/06/21 12:15 36.9 14 154/91 (112) 100 Room Air 06/06/21 12:15 Room Air 06/06/21 12:10 10 147/90 (109) 99 Room Air 06/06/21 12:04 Room Air 06/06/21 12:00 17 138/82 (100) 100 OxyMask 1 06/06/21 11:55 OxyMask 1 06/06/21 11:50 14 138/82 (100) 99 OxyMask 3 06/06/21 11:40 OxyMask 3 06/06/21 11:40 14 132/77 (95) 99 OxyMask 3 06/06/21 11:30 16 133/75 (94) 99 OxyMask 6 06/06/21 11:25 OxyMask 6 06/06/21 11:25 36.7 16 111/69 (83) 100 OxyMask 6 I & O 06/07/21 07:00 Intake Total 4440 ml Output Total 1650 ml Balance 2790 ml Capillary Refill : Less Than 3 Seconds General Appearance: No Apparent Distress, WD/WN Neck: Supple Respiratory: Lungs Clear, Normal Breath Sounds (anterior listening posts only), No Accessory Muscle Use, No Respiratory Distress Cardiovascular: Regular Rate, Rhythm, Normal Peripheral Pulses Gastrointestinal: soft, tenderness, other (midline inscision and previous ostomy site closure look well approximated and clean) Extremity: Non Tender, No Calf Tenderness, No Pedal Edema Neurologic/Psychiatric: Alert, Oriented x3, Normal Mood/Affect Skin: Normal Color, Warm/Dry Results Lab Microbiology 06/06/21 MRSA Screen - Final, Complete MRSA not isolated Assessment/Plan Assessment/Plan Admission Diagonsis Colostomy reversal surgery Assessment/Plan Assessment S/P Colostomy reversal Day 1 Plan Progress diet Attempt to transition to oral fluids Pain control Up and out of bed and ambulating PT Incentive spirometer Restart home meds Discussed surgery with patient. Told him if everything continues to go well we could probably send him home tomorrow. He seemed okay with this. Patient's diet is progressing to whole foods, will continue to monitor his tolerance to food/pain. LORENZO MORENO DO 06/07/21 1200: Subjective Time Seen by a Provider: 10:24 Subjective/Events-last exam Pt seen and examined, states he is wdoing pretty well. Pain mostly controlled and he wants to eat. Review of Systems General: No Chills, No Night Sweats HEENT: Head Aches Pulmonary: No Dyspnea, No Cough Cardiovascular: No: Chest Pain, Palpitations Gastrointestinal: Abdominal Pain; No: Nausea, Vomiting Objective Exam General Appearance: No Apparent Distress, WD/WN Respiratory: Lungs Clear, Normal Breath Sounds (anterior listening posts only), No Accessory Muscle Use, No Respiratory Distress Cardiovascular: Regular Rate, Rhythm, No Murmur Gastrointestinal: soft, tenderness, other (midline inscision and previous ostom y site closure look well approximated and clean) Assessment/Plan Assessment/Plan Assessment/Plan S/P Colostomy reversal Day 1 Plan Progress diet Attempt to transition to oral fluids Pain control Up and out of bed and ambulating PT Incentive spirometer Restart home meds Discussed surgery with patient. Told him if everything continues to go well we could probably send him home tomorrow. He seemed okay with this. Patient's diet is progressing to whole foods, will continue to monitor his tolerance to food/pain. Will start him on a regular diet. Supervisory-Addendum Brief Verification & Attestation Participated in pt care: history, MDM, physical Personally performed: exam, history, MDM, supervision of care Care discussed with: Medical Student Procedures: n/a Verification and Attestation of Medical Student E/M Service A medical student performed and documented this service. I then reviewed and verified all information documented by the medical student and made modifications to such information, when appropriate. I personally performed a physical exam, medical decision making and then discussed any differences between the notes and made revisions as necessary to create one note. Lorenzo Moreno , 06/07/21 , 12:00 NICKI SKINNER Jun 07, 2021 10:38 LORENZO MORENO DO Jun 07, 2021 12:00
[2021-06-07] MEDS: ENOXAPARIN 40 MG/0.4 ML (LOVENOX) SYR SC SCH ×2 (12:00→12:05)
[2021-06-07 12:43] VITALS: BP 114/66
--- NOTE | 2021-06-07 13:13 | Anesthesia-General Post-Op ---
General Patient Condition Mental Status/LOC: Same as Preop Cardiovascular: Satisfactory Nausea/Vomiting: Absent Respiratory: Satisfactory Pain: Controlled Complications: Absent Post Op Complications Complications None Follow Up Care/Instructions Patient Instructions None needed. Anesthesia/Patient Condition Patient Condition Patient is doing well, no complaints, stable vital signs, no apparent adverse anesthesia problems. No complications reported per nursing. ELIZABETH TOMPKINS CRNA Jun 07, 2021 13:13
[2021-06-07 16:00] VITALS: BP 129/68
[2021-06-07 19:33] VITALS: BP 117/61
[2021-06-08] VITALS: BP 117/57
[2021-06-08 04:07] VITALS: BP 114/63
[2021-06-08] MEDS: KETOROLAC 30 MG/ML VIAL IVP SCH ×2 (05:25→12:19)
[2021-06-08] MEDS: ACETAMINOPHEN 500 MG TAB (TYLENOL) PO SCH (05:25)
[2021-06-08 08:54] VITALS: BP 117/64
[2021-06-08] MEDS: PANTOPRAZOLE 40 MG (PROTONIX) VIAL IVP SCH (09:15)
--- NOTE | 2021-06-08 09:18 | Progress Note - Surgery ---
NICKI SKINNER 06/08/21 0918: Subjective Date Seen by a Provider: Jun 08, 2021 Time Seen by a Provider: 07:45 Subjective/Events-last exam Patient resting in bed watching TV when I came into the room. States he is doing good today and feels slightly better than yesterday. Has been eating regular food with no issues. States he still hasn't had a bowel movement but has passed flatus. States he is hoping he gets to go home today if still okay with Dr. Moreno. Review of Systems General: No Chills, No Night Sweats HEENT: No Head Aches, No Visual Changes Pulmonary: No Dyspnea, No Cough Cardiovascular: No: Chest Pain, Palpitations Gastrointestinal: Abdominal Pain (mild tenderness over incision sites); No: Nausea, Vomiting Genitourinary: No Dysuria, No Frequency Objective Exam Vital Signs Date Time Temp Pulse Resp B/P (MAP) Pulse Ox O2 Delivery O2 Flow Rate FiO2 06/08/21 08:54 36.4 70 18 117/64 (81) 95 Room Air 06/08/21 04:07 36.6 67 17 114/63 (80) 95 Room Air 06/08/21 00:00 38.0 92 18 117/57 (77) 94 Room Air 06/07/21 23:56 38.0 06/07/21 19:50 Room Air 06/07/21 19:33 37.3 75 18 117/61 (79) 94 Room Air 06/07/21 16:00 36.9 73 20 129/68 (88) 93 Room Air 06/07/21 12:43 37.2 68 18 114/66 (82) 95 Room Air 06/07/21 10:50 Room Air 0.00 06/07/21 10:12 Room Air I & O 06/08/21 07:00 Intake Total 2020 ml Output Total 1700 ml Balance 320 ml Capillary Refill : Less Than 3 Seconds General Appearance: No Apparent Distress, WD/WN Neck: Supple Respiratory: Lungs Clear, Normal Breath Sounds (anterior listening posts only), No Accessory Muscle Use, No Respiratory Distress Cardiovascular: Regular Rate, Rhythm, No Murmur Gastrointestinal: soft, tenderness Extremity: Non Tender, No Calf Tenderness, No Pedal Edema Neurologic/Psychiatric: Alert, Oriented x3, Normal Mood/Affect Skin: Normal Color, Warm/Dry Results Lab Microbiology 06/06/21 MRSA Screen - Final, Complete MRSA not isolated Assessment/Plan Assessment/Plan Assessment/Plan S/P Colostomy reversal Day 2 Plan Pain control Up and out of bed and ambulating PT Incentive spirometer Restart home meds Discussed with patient about going home today. He says he is hopeful he can go home today, but will defer to our recommendations. Patient tolerating regular diet, hasn't had a bowel movement but is passing flatus. States his pain is well controlled. Plan on discharge today. LORENZO MORENO DO 06/08/21 1122: Subjective Time Seen by a Provider: 10:40 Subjective/Events-last exam Pt seen and examined, states he had a BM; he thinks it might have been maroon. He thinks he is ok to go home today. Review of Systems General: No Chills, No Night Sweats Pulmonary: No Dyspnea, No Cough Cardiovascular: No: Chest Pain, Palpitations Gastrointestinal: Abdominal Pain (mild tenderness over incision sites); No: Nausea, Vomiting Genitourinary: No Dysuria, No Frequency Objective Exam General Appearance: No Apparent Distress, WD/WN Respiratory: Lungs Clear, Normal Breath Sounds (anterior listening posts only), No Accessory Muscle Use, No Respiratory Distress Cardiovascular: Regular Rate, Rhythm, No Murmur Gastrointestinal: soft, tenderness (mild at incisions) Assessment/Plan Assessment/Plan Assessment/Plan S/P Colostomy reversal Day 2 Plan D/C IV and D/C home, f/u in one week, will send Rx for pain meds, can resume any home meds Supervisory-Addendum Brief Verification & Attestation Participated in pt care: history, MDM, physical Personally performed: exam, history, MDM, supervision of care Care discussed with: Medical Student Procedures: n/a Verification and Attestation of Medical Student E/M Service A medical student performed and documented this service. I then reviewed and verified all information documented by the medical student and made modifications to such information, when appropriate. I personally performed a physical exam, medical decision making and then discussed any differences between the notes and made revisions as necessary to create one note. Lorenzo Moreno , 06/08/21 , 11:21 NICKI SKINNER Jun 08, 2021 09:18 LORENZO MORENO DO Jun 08, 2021 11:22
[2021-06-08] MEDS: ENOXAPARIN 40 MG/0.4 ML (LOVENOX) SYR SC SCH (11:08)
[2021-06-08] MEDS ORDERED: ACHD5005 PO (11:22)
--- NOTE | 2021-06-08 11:23 | Discharge Inst-Surgical ---
Discharge Inst-Surgical Depart Medication/Instructions New, Converted or Re-Newed RX: Transmitted to Pharmacy Patient Instructions Follow up Appt: Make appointment for 1 week. [phone] Instructions: No lifting greater than 20 pounds. No strenuous activity. May shower in 24 hours, no tub bath or soaking. Use incentive spirometer at home as directed. No Smoking Skin/Wound Care: May remove bandages in am. You need to leave the Dermabond on incision it will fall off on it's own. Symptoms to Report: Appetite Changes, Extremity Discoloration, Numbness/Tingling, Swelling Increased, Bleeding Excessive, Eyesight Changes, Pain Increased, Urine Color Change, Constipation(Persistent), Fever over 101 degree F, Pain/Pressure in chest, Urinating Difficulty, Cough Up/Vomit Blood, Heart Beat Irreg/Pounding, Pain/Pressure in jaw, Cramps in feet or legs, Lightheadedness, Pain/Pressure in shoulder, Diarrhea(Persistent), Memory Changes Suddenly, Questions/Concerns, Weight gain consecutive days, Dizziness/Fainting, Nausea/Vomiting, Shortness of Breath, Weight gain over 2 pounds If questions or concerns contact your physician Or seek help at emergency department. Activity Activity as Tolerated: Yes Activity Instructions: Avoid Stress to Incision Driving Instructions: No Driving/Refer to Dr. Casey Discharge Diet: No Restrictions Diet After 24 Hours: Clear Liquid if Nauseous If Any Problems/Questions/Issu: Contact Your Physician, Go to Emergency Room Skin/Wound Care Infection Signs and Symptoms: Increased Redness, Foul Odor of Wound, Increased Drainage, Skin Itchy or Has a Rash, Increased Swelling, Temperature Above 101 F Bathing Instructions: Shower Stitches/[place]/Dermabond Dis: Care of LANCE Cabral DO Jun 08, 2021 11:23
[2021-06-08 11:24] VITALS: BP 130/71
[2021-06-08 12:39] VITALS: BP 130/71
== END 2021-06-08 14:22 | disposition home or self-care (01) | DRG 331 ==
LOC: 4TH 06:51 → SURG 06:52 → 4TH 12:24
PROVIDERS: ADMIT Surgery; ATTEND Surgery
PROC: 0DBE0ZZ Excision of Large Intestine, Open Approach (ICD-10-PCS; principal; 2021-06-06 08:38)
DX: Z43.3 Encounter for attention to colostomy (principal)
CPT/HCPCS: 87081